=== PATIENT | female | born 1980 | race Caucasian/White ===

== ENCOUNTER 2017-04-12 01:40 | Inpatient (IN) ==
[2017-04-12] MEDS ORDERED: Ipratropium/Albuterol Neb 3 ML IH ONE (02:00)
[2017-04-12] MEDS ORDERED: Ipratropium/Albuterol Neb 3 ML IH SCH (02:00)
[2017-04-12] MEDS ORDERED: Ipratropium/Albuterol Neb 3 ML ONE (02:02)
--- NOTE | 2017-04-12 02:19 | Emergency Department Note ---
Disposition Clinical Impression: Acute dyspnea, Newly diagnosed diabetes, K[place]emia Asthma with exacerbation Qualifiers: Asthma severity: moderate Asthma persistence: persistent Qualified Code(s): J45.41 - Moderate persistent asthma with (acute) exacerbation Disposition: Admitted As Inpatient Condition: Fair Time of Disposition: 06:05 SOB HPI - General Chief Complaint: ED Shortness of Breath/Dyspnea Stated Complaint: JENNIFER Source: patient, EMS Mode of arrival: EMS Limitations: no limitations Nursing Notes Reviewed: Yes Vital Signs Reviewed: Yes - History of Present Illness 36 year old female asthmatic presents to the ED after 2 hour history of facial swelling, shortness of breath, and "hives". Patient cannot specify any new exposures that may have attributed to an allergic reaction. No known food allergies. Not on any new medications. Took low dose benadryl at home with no relief of symptoms. Not O2 dependent, but did try albuterol inhaler with minimal improvement. Is also having mild non-radiating chest pressure. EMS reports patient saturating in low 90s on 12L O2. She was able to ambulate between EMS [facility] and ED bed. Denies any fevers, chills, sweats, heart palpitations, syncope, nausea, vomiting , hemoptysis, known malignancy, recent immobilization/surgery/extensive travel. Has had previous DVT and is tachycardic; Wells PE is 3. PERC positive due to history, O2 desat, and HR. - Related Data Home Medications Medication Instructions Recorded Confirmed Albuterol Neb [Proventil Neb] 2.5 mg IH Q4HR PRN 05/17/15 06/01/15 Ammonium Lactate 1 appl TP BID 05/17/15 06/01/15 Diazepam [Valium] 5 mg PO QAM 05/17/15 06/01/15 Diclofenac Sodium [Voltaren] 1 appl TP PRN PRN 05/17/15 06/01/15 DiphenhydraMINE [Benadryl] 75 mg PO HS 05/17/15 06/01/15 Docusate Sodium [Colace] 200 mg PO BID 05/17/15 06/01/15 Escitalopram [Lexapro] 20 mg PO QPM 05/17/15 06/01/15 Fluticasone Propionate Nasal 1 spray NS DAILY PRN 05/17/15 06/01/15 [Flonase] Gabapentin [Neurontin] 900 mg PO BID 05/17/15 06/01/15 Krill/Om-3/Dha/Epa/Phospho/Ast 1 each PO QPM 05/17/15 06/01/15 [[place]-3 Krill Oil 1,000 mg] Lamotrigine [Lamictal] 100 mg PO QAM 05/17/15 06/01/15 Lamotrigine [Lamictal] 200 mg PO HS 05/17/15 06/01/15 Meloxicam [Mobic] 15 mg PO QAM 05/17/15 06/01/15 Multivitamin [Flintstones] 1 each PO QAM 05/17/15 06/01/15 Omeprazole [PriLOSEC] 20 mg PO QAM 05/17/15 06/01/15 Oxybutynin [Ditropan] 5 mg PO BID 05/17/15 06/01/15 Oxycodone HCl 10 mg PO Q4H PRN 05/17/15 06/01/15 Perphenazine [Trilafon] 4 mg PO QAM 05/17/15 06/01/15 Perphenazine [Trilafon] 24 mg PO HS 05/17/15 06/01/15 Polyethylene Glycol 3350 [MiraLAX] 17 gm PO DAILY PRN 05/17/15 06/01/15 Psyllium Husk [Daily Fiber] 0.52 gm PO QAM 05/17/15 06/01/15 Salmeterol Xinafoate [Serevent 50 mcg IH BID PRN 05/17/15 06/01/15 Diskus] Simethicone [Gas-X] 250 mg PO BID 05/17/15 06/01/15 Benzonatate [Tessalon] 100 mg PO TID PRN 06/01/15 06/01/15 Diazepam [Valium] 20 mg PO HS 06/01/15 06/01/15 Previous Rx's Medication Instructions Recorded PredniSONE 40 mg PO DAILY #7 tablet 06/02/15 levoFLOXacin [Levaquin] 500 mg PO DAILY #5 tablet 06/02/15 Penicillin VK 500 mg PO QID #40 tablet 09/24/15 Dicyclomine [Bentyl] 10 mg PO BID #20 capsule 12/08/15 Allergies Allergy/AdvReac Type Severity Reaction Status Date / Time Oxycodone [From OxyContin] Allergy See Verified 07/07/16 04:22 Comments All systems ED: reviewed and negative except as stated. Review of Systems: As Per HPI Past Medical History - Past Medical History Attestation: Yes The following information was validated with the patient. [facility] Narrative: No known history of diabetes Medical history: Reports: asthma, COPD, DVT, hypertension, syncope, other Surgical history: Reports: other Psychiatric history: Reports: anxiety, bipolar, depression, PTSD, other - Social History Smoking Status: Current every day smoker Smokeless Tobacco Status: No Alcohol use: Reports: occasionally Drug use: Reports: none Physical Exam - General Limitations: no limitations General appearance: alert, in no apparent distress, anxious - Head Head exam: normocephalic - Eye Eye exam: Present: PERRL, EOMI. Absent: scleral icterus, conjunctival injection , nystagmus, miosis, mydriasis - ENT ENT exam: mucous membranes moist - Neck Neck exam: Present: trachea midline - Chest Chest inspection: Present: normal inspection, symmetric chest wall rise. Absent : rash - Respiratory Respiratory exam: Present: respiratory distress, wheezes, accessory muscle use. Absent: stridor - Cardiovascular Cardiovascular exam: Present: other (heart sounds distant and difficult to auscultate) - Abdominal Exam Abdominal exam: Present: soft, Non-Tender - Extremities Exam Extremities exam: Absent: pedal edema - Neurological Exam Neurological exam: Present: alert, oriented X3 - Psychiatric Psychiatric exam: Present: anxious - Skin Skin exam: Present: warm, dry, intact, normal color, rash (Not appreciated our initial evaluation; see reassessment). Absent: cyanosis, diaphoresis, erythema , pallor, mottled Course Course Narrative: patient given multiple duonebs on arrival and dyspnea work up initiated. SpO2 minimally improved with 4L via NC, multiple duonebs, and albuterol treatments. EKG and troponin negative for ST elevation/depression. Marked elevation of glucose on BMP with associated AG, absent abnormal pH on VBG. Initiated 2L NS bolus, PO water restriction, and insulin drip. Telemetry called several times for tachycardic rates in the 200s which were discordant with concurrent pulse checks (120s). Spoke with hospitalist for admission for respiratory distress and non-acidotic ketotic hyperglycemia; ordered CTA to evaluate for PE at hospitalist request. - Reevaluation(s) Reevaluation #1: Appears to be somewhat improved with respect to respiratory effort. Still wheezing. No other subjective changes at this time. On 4L NC O2, currently receiving NS bolus and insulin drip. Time: 04:55 Vital Signs Temperature 98.7 F 04/12/17 01:42 Pulse Rate 114 04/12/17 01:42 Respiratory Rate 20 04/12/17 01:42 Blood Pressure 145/114 04/12/17 01:42 O2 Sat by Pulse Oximetry 92 04/12/17 01:42 Temperature 99.5 F 04/12/17 06:39 Pulse Rate 121 04/12/17 06:39 Respiratory Rate 20 04/12/17 06:39 Blood Pressure 125/98 04/12/17 06:39 O2 Sat by Pulse Oximetry 96 04/12/17 06:39 Oxygen Delivery Oxygen Delivery Nasal Cannula Shortness of Breath/Dyspnea - MDM Narrative Medical decision making narrative: Patient continues to be dyspneic despite multiple breathing treatments and supplementary oxygen up to 4 L by nasal cannula. Saturations have maintained approximately 88-90% values throughout ED course. Patient has consistently been tachycardic throughout ED stay. Furthermore, patient has marked elevation of serum glucose, ketonemia, and elevated anion gap (without acidemia). Patient is on insulin drip and is receiving DKA bolus of NS. Admitting patient for observation and stabilization of respiratory distress and decompensation of previously unknown diabetes. CTA chest ordered at request of hospitalist; scan completed prior to transfer to medical floor with interpretation currently pending. - Lab Data Lab results reviewed: Yes I reviewed the patient's lab results. Lab results narrative: Laboratory Last Values WBC 9.4 K/mcL (4.3-11.1) 04/12/17 02:21 RBC 6.10 M/mcL (3.82-4.97) H 04/12/17 02:21 Hgb 17.6 g/dL (11.5-15.4) H 04/12/17 02:21 Hct 51.4 % (35.3-44.9) H 04/12/17 02:21 MCV 84.3 fL (83.0-100.0) 04/12/17 02:21 MCH 28.9 pg (28.0-33.3) 04/12/17 02:21 MCHC 34.2 g/dL (31.6-35.5) 04/12/17 02:21 RDW 13.4 % (11.5-14.5) 04/12/17 02:21 Plt Count 200 K/mcL (140-400) 04/12/17 02:21 MPV 11.2 fL (9.4-12.4) 04/12/17 02:21 Immature Gran % 0.3 % (0-4) 04/12/17 02:21 Seg Neutrophils % 64.4 % 04/12/17 02:21 Lymphocytes % 27.1 % 04/12/17 02:21 Monocytes % 6.6 % 04/12/17 02:21 Eosinophils % 1.1 % 04/12/17 02:21 Basophils % 0.5 % 04/12/17 02:21 Neutrophils # 6.0 K/mcL (1.6-8.9) 04/12/17 02:21 Lymphocytes # 2.5 K/mcL (0.6-4.6) 04/12/17 02:21 Monocytes # 0.6 K/mcL (0.0-1.3) 04/12/17 02:21 Eosinophils # 0.1 K/mcL (0.0-0.6) 04/12/17 02:21 Basophils # 0.1 K/mcL (0.0-0.2) 04/12/17 02:21 VBG pH 7.38 pH Units (7.32-7.42) 04/12/17 03:48 VBG pCO2 39 mmHg (41-51) L 04/12/17 03:48 VBG pO2 86 mmHg (25-50) H 04/12/17 03:48 VBG HCO3 23 mEq/L (21-27) 04/12/17 03:48 Sodium 126 mEq/L (136-145) L 04/12/17 02:21 Potassium 4.7 mEq/L (3.5-4.5) H 04/12/17 02:21 Chloride 92 mEq/L (98-109) L 04/12/17 02:21 Carbon Dioxide 19 mEq/L (19-29) 04/12/17 02:21 BUN 10 mg/dL (7-20) 04/12/17 02:21 Creatinine 1.06 mg/dL (0.57-1.11) 04/12/17 02:21 Est GFR ( Amer) > 60 (> 60) 04/12/17 02:21 Est GFR (Non-Af Amer) 59 (> 60) L 04/12/17 02:21 BUN/Creatinine Ratio 9 (6-26) 04/12/17 02:21 Glucose 738 mg/dL (70-99) H* 04/12/17 02:21 POC Glucose 599 (58-89) H* 04/12/17 04:37 Calculated Osmolality 297 (280-300) 04/12/17 02:21 Calcium 9.5 mg/dL (8.6-10.8) 04/12/17 02:21 Troponin I 0.01 ng/mL (0-0.03) 04/12/17 02:21 Beta-Hydroxybutyric Acd 0.41 mmol/L (0.02-0.27) H 04/12/17 02:21 Laboratory Last Values WBC 9.4 K/mcL (4.3-11.1) 04/12/17 02:21 RBC 6.10 M/mcL (3.82-4.97) H 04/12/17 02:21 Hgb 17.6 g/dL (11.5-15.4) H 04/12/17 02:21 Hct 51.4 % (35.3-44.9) H 04/12/17 02:21 MCV 84.3 fL (83.0-100.0) 04/12/17 02:21 MCH 28.9 pg (28.0-33.3) 04/12/17 02:21 MCHC 34.2 g/dL (31.6-35.5) 04/12/17 02:21 RDW 13.4 % (11.5-14.5) 04/12/17 02:21 Plt Count 200 K/mcL (140-400) 04/12/17 02:21 MPV 11.2 fL (9.4-12.4) 04/12/17 02:21 Immature Gran % 0.3 % (0-4) 04/12/17 02:21 Seg Neutrophils % 64.4 % 04/12/17 02:21 Lymphocytes % 27.1 % 04/12/17 02:21 Monocytes % 6.6 % 04/12/17 02:21 Eosinophils % 1.1 % 04/12/17 02:21 Basophils % 0.5 % 04/12/17 02:21 Neutrophils # 6.0 K/mcL (1.6-8.9) 04/12/17 02:21 Lymphocytes # 2.5 K/mcL (0.6-4.6) 04/12/17 02:21 Monocytes # 0.6 K/mcL (0.0-1.3) 04/12/17 02:21 Eosinophils # 0.1 K/mcL (0.0-0.6) 04/12/17 02:21 Basophils # 0.1 K/mcL (0.0-0.2) 04/12/17 02:21 VBG pH 7.38 pH Units (7.32-7.42) 04/12/17 03:48 VBG pCO2 39 mmHg (41-51) L 04/12/17 03:48 VBG pO2 86 mmHg (25-50) H 04/12/17 03:48 VBG HCO3 23 mEq/L (21-27) 04/12/17 03:48 Sodium 126 mEq/L (136-145) L 04/12/17 02:21 Potassium 4.7 mEq/L (3.5-4.5) H 04/12/17 02:21 Chloride 92 mEq/L (98-109) L 04/12/17 02:21 Carbon Dioxide 19 mEq/L (19-29) 04/12/17 02:21 BUN 10 mg/dL (7-20) 04/12/17 02:21 Creatinine 1.06 mg/dL (0.57-1.11) 04/12/17 02:21 Est GFR ( Amer) > 60 (> 60) 04/12/17 02:21 Est GFR (Non-Af Amer) 59 (> 60) L 04/12/17 02:21 BUN/Creatinine Ratio 9 (6-26) 04/12/17 02:21 Glucose 738 mg/dL (70-99) H* 04/12/17 02:21 POC Glucose 599 (58-89) H* 04/12/17 04:37 Calculated Osmolality 297 (280-300) 04/12/17 02:21 Calcium 9.5 mg/dL (8.6-10.8) 04/12/17 02:21 Troponin I 0.01 ng/mL (0-0.03) 04/12/17 02:21 Beta-Hydroxybutyric Acd 0.41 mmol/L (0.02-0.27) H 04/12/17 02:21 Urine Color Yellow (Yellow) 04/12/17 04:44 Urine Clarity Clear (Clear) 04/12/17 04:44 Urine pH 6.0 pH Units (5.0-8.0) 04/12/17 04:44 Ur Specific [place] > 1.030 (1.010-1.025) H 04/12/17 04:44 Urine Protein Negative mg/dL (Neg-Trace) 04/12/17 04:44 Urine Glucose (UA) >=1000 mg/dL (Normal) H 04/12/17 04:44 Urine Ketones Negative mg/dL (Negative) 04/12/17 04:44 Urine Blood Trace (Negative) H 04/12/17 04:44 Urine Nitrite Negative (Negative) 04/12/17 04:44 Urine Bilirubin Negative (Negative) 04/12/17 04:44 Urine Urobilinogen Normal mg/dL (Normal) 04/12/17 04:44 Ur Leukocyte Esterase Negative (Negative) 04/12/17 04:44 Result diagrams: 04/12/17 02:21 04/12/17 02:21 Lab Results 04/12/17 04/12/17 04/12/17 Range/Units 02:21 02:21 02:21 WBC 9.4 (4.3-11.1) K/mcL RBC 6.10 H (3.82-4.97) M/mcL Hgb 17.6 H (11.5-15.4) g/dL Hct 51.4 H (35.3-44.9) % MCV 84.3 (83.0-100.0) fL MCH 28.9 (28.0-33.3) pg MCHC 34.2 (31.6-35.5) g/dL RDW 13.4 (11.5-14.5) % Plt Count 200 (140-400) K/mcL MPV 11.2 (9.4-12.4) fL Immature Gran % 0.3 (0-4) % Seg Neutrophils % 64.4 % Lymphocytes % 27.1 % Monocytes % 6.6 % Eosinophils % 1.1 % Basophils % 0.5 % Neutrophils # 6.0 (1.6-8.9) K/mcL Lymphocytes # 2.5 (0.6-4.6) K/mcL Monocytes # 0.6 (0.0-1.3) K/mcL Eosinophils # 0.1 (0.0-0.6) K/mcL Basophils # 0.1 (0.0-0.2) K/mcL VBG pH (7.32-7.42) pH Units VBG pCO2 (41-51) mmHg VBG pO2 (25-50) mmHg VBG HCO3 (21-27) mEq/L Sodium 126 L (136-145) mEq/L Potassium 4.7 H (3.5-4.5) mEq/L Chloride 92 L (98-109) mEq/L Carbon Dioxide 19 (19-29) mEq/L BUN 10 (7-20) mg/dL Creatinine 1.06 (0.57-1.11) mg/dL Est GFR ( Amer) > 60 (> 60) Est GFR (Non-Af Amer) 59 L (> 60) BUN/Creatinine Ratio 9 (6-26) Glucose 738 H* (70-99) mg/dL POC Glucose (58-89) Calculated Osmolality 297 (280-300) Calcium 9.5 (8.6-10.8) mg/dL Troponin I 0.01 (0-0.03) ng/mL Beta-Hydroxybutyric Acd (0.02-0.27) mmol/L Urine Color (Yellow) Urine Clarity (Clear) Urine pH (5.0-8.0) pH Units Ur Specific [place] (1.010-1.025) Urine Protein (Neg-Trace) mg/dL Urine Glucose (UA) (Normal) mg/dL Urine Ketones (Negative) mg/dL Urine Blood (Negative) Urine Nitrite (Negative) Urine Bilirubin (Negative) Urine Urobilinogen (Normal) mg/dL Ur Leukocyte Esterase (Negative) Ur Squamous Epith Cells (None-Few) per lpf Urine Bacteria (None-Few) per hpf Ur Culture Indicated? (NO) 04/12/17 04/12/17 04/12/17 Range/Units 02:21 03:48 04:37 WBC (4.3-11.1) K/mcL RBC (3.82-4.97) M/mcL Hgb (11.5-15.4) g/dL Hct (35.3-44.9) % MCV (83.0-100.0) fL MCH (28.0-33.3) pg MCHC (31.6-35.5) g/dL RDW (11.5-14.5) % Plt Count (140-400) K/mcL MPV (9.4-12.4) fL Immature Gran % (0-4) % Seg Neutrophils % % Lymphocytes % % Monocytes % % Eosinophils % % Basophils % % Neutrophils # (1.6-8.9) K/mcL Lymphocytes # (0.6-4.6) K/mcL Monocytes # (0.0-1.3) K/mcL Eosinophils # (0.0-0.6) K/mcL Basophils # (0.0-0.2) K/mcL VBG pH 7.38 (7.32-7.42) pH Units VBG pCO2 39 L (41-51) mmHg VBG pO2 86 H (25-50) mmHg VBG HCO3 23 (21-27) mEq/L Sodium (136-145) mEq/L Potassium (3.5-4.5) mEq/L Chloride (98-109) mEq/L Carbon Dioxide (19-29) mEq/L BUN (7-20) mg/dL Creatinine (0.57-1.11) mg/dL Est GFR ( Amer) (> 60) Est GFR (Non-Af Amer) (> 60) BUN/Creatinine Ratio (6-26) Glucose (70-99) mg/dL POC Glucose 599 H* (58-89) Calculated Osmolality (280-300) Calcium (8.6-10.8) mg/dL Troponin I (0-0.03) ng/mL Beta-Hydroxybutyric Acd 0.41 H (0.02-0.27) mmol/L Urine Color (Yellow) Urine Clarity (Clear) Urine pH (5.0-8.0) pH Units Ur Specific [place] (1.010-1.025) Urine Protein (Neg-Trace) mg/dL Urine Glucose (UA) (Normal) mg/dL Urine Ketones (Negative) mg/dL Urine Blood (Negative) Urine Nitrite (Negative) Urine Bilirubin (Negative) Urine Urobilinogen (Normal) mg/dL Ur Leukocyte Esterase (Negative) Ur Squamous Epith Cells (None-Few) per lpf Urine Bacteria (None-Few) per hpf Ur Culture Indicated? (NO) 04/12/17 Range/Units 04:44 WBC (4.3-11.1) K/mcL RBC (3.82-4.97) M/mcL Hgb (11.5-15.4) g/dL Hct (35.3-44.9) % MCV (83.0-100.0) fL MCH (28.0-33.3) pg MCHC (31.6-35.5) g/dL RDW (11.5-14.5) % Plt Count (140-400) K/mcL MPV (9.4-12.4) fL Immature Gran % (0-4) % Seg Neutrophils % % Lymphocytes % % Monocytes % % Eosinophils % % Basophils % % Neutrophils # (1.6-8.9) K/mcL Lymphocytes # (0.6-4.6) K/mcL Monocytes # (0.0-1.3) K/mcL Eosinophils # (0.0-0.6) K/mcL Basophils # (0.0-0.2) K/mcL VBG pH (7.32-7.42) pH Units VBG pCO2 (41-51) mmHg VBG pO2 (25-50) mmHg VBG HCO3 (21-27) mEq/L Sodium (136-145) mEq/L Potassium (3.5-4.5) mEq/L Chloride (98-109) mEq/L Carbon Dioxide (19-29) mEq/L BUN (7-20) mg/dL Creatinine (0.57-1.11) mg/dL Est GFR ( Amer) (> 60) Est GFR (Non-Af Amer) (> 60) BUN/Creatinine Ratio (6-26) Glucose (70-99) mg/dL POC Glucose (58-89) Calculated Osmolality (280-300) Calcium (8.6-10.8) mg/dL Troponin I (0-0.03) ng/mL Beta-Hydroxybutyric Acd (0.02-0.27) mmol/L Urine Color Yellow (Yellow) Urine Clarity Clear (Clear) Urine pH 6.0 (5.0-8.0) pH Units Ur Specific [place] > 1.030 H (1.010-1.025) Urine Protein Negative (Neg-Trace) mg/dL Urine Glucose (UA) >=1000 H (Normal) mg/dL Urine Ketones Negative (Negative) mg/dL Urine Blood Trace H (Negative) Urine Nitrite Negative (Negative) Urine Bilirubin Negative (Negative) Urine Urobilinogen Normal (Normal) mg/dL Ur Leukocyte Esterase Negative (Negative) Ur Squamous Epith Cells Few (None-Few) per lpf Urine Bacteria Few (None-Few) per hpf Ur Culture Indicated? NO (NO) - Radiology Data Radiology results reviewed: Yes I reviewed the patient's radiology results. Chest X-Ray 04/12/17 01:55 IMPRESSION: Limited but grossly negative portable chest. D/ / Arjun Stratton MD / Arjun Stratton MD Interpreting Provider: Arjun Stratton MD - EKG Data EKG attestation: Yes I reviewed and interpreted this EKG. EKG results narrative: Rate 111, MD interval 124, QRS duration 86, QTC 379, axis 80, no PT waves, no ST elevation sinus tachycardia Repeat EKG ordered in response to artifactual telemetry abnormalities: 0345am -- rate 128, MD int 150, QRS 84, QTc 374, axis 76 degrees, no significant ST changes from earlier EKG, sinus tachycardia Critical Care Time Critical Care Time: Yes Total Critical Care Time: 50 Attestation: Critical care performed: Time is exclusive of separately billable procedures. Time includes: direct patient care, patient reassessment, coordination of patient care, interpretation of data (laboratory data, radiology data, and respiratory data), review of patient's medical records, medical consultation and documentation of patient care. Procedures included in critical care time: Procedures excluded from critical care time: Attestation Statement - Attestation Attestation: IJosué MD, personally evaluated this patient and discussed their management with the resident physician. I reviewed the resident's note and agree with the documented findings, medical decision making, and plan of care. 36-year-old male presents to the emergency department with a complaint of increased cough for 2 days prior to arrival. This evening about 11 PM she developed increased shortness of breath. No fever. No sputum production. No chest pain. Patient has a history of asthma and COPD. No history of diabetes but was found tonight to have a blood sugar greater than 700. On examination patient is a well-developed obese female in mild respiratory distress. She is alert and oriented 3. There is no cyanosis or diaphoresis. Oxygen saturation in the upper 80s to low 90s on oxygen by nasal cannula. Chest is nontender to palpation. Breath sounds are decreased bilaterally with a few scattered expiratory wheezes. No rales. Heart tachycardic and regular. Abdomen soft and nontender with normal bowel sounds. No pedal edema. Labs reviewed. Blood sugar 738. Positive ketones. PH normal. Chest x-ray negative. CTA of the chest requested by the hospitalist and showed no central pulmonary emboli. Patient was placed on an insulin drip. The hospitalist, Dr. Hunter, was consulted and accepted admission of the patient.
[2017-04-12 02:30] LABS: Basophils # 0.1 K/mcL (0.0-0.2); Basophils % 0.5 %; Eosinophils # 0.1 K/mcL (0.0-0.6); Eosinophils % 1.1 %; Hematocrit 51.4 % (35.3-44.9); Hemoglobin 17.6 g/dL (11.5-15.4); Immature Granulocytes % 0.3 % (0-4); Lymphocytes # 2.5 K/mcL (0.6-4.6); Lymphocytes % 27.1 %; Mean Corpuscular HGB Conc 34.2 g/dL (31.6-35.5); Mean Corpuscular Hemoglobin 28.9 pg (28.0-33.3); Mean Corpuscular Volume 84.3 fL (83.0-100.0); Mean Platelet Volume 11.2 fL (9.4-12.4); Monocytes # 0.6 K/mcL (0.0-1.3); Monocytes % 6.6 %; Platelet Count 200 K/mcL (140-400); Red Cell Distribution Width 13.4 % (11.5-14.5); Segmented Neutrophils % 64.4 %
[2017-04-12] MEDS ORDERED: methylPREDNISolone 125 MG/2 ML VIAL IVP ONE (02:30)
[2017-04-12 02:43] LABS: BUN/Creatinine Ratio 9 (6-26); Blood Urea Nitrogen 10 mg/dL (7-20); Calcium 9.5 mg/dL (8.6-10.8); Carbon Dioxide 19 mEq/L (19-29); Chloride 92 mEq/L (98-109); Osmolality,Calculated 297 (280-300); Potassium 4.7 mEq/L (3.5-4.5); Sodium 126 mEq/L (136-145); eGFR For African Americans > 60 (> 60); eGFR For Non-African Americans 59 (> 60)
[2017-04-12 02:45] LABS: Glucose 738 mg/dL (70-99)
[2017-04-12] MEDS ORDERED: Albuterol 2.5 MG/3 ML NEBULIZER IH ONE (02:46)
[2017-04-12] MEDS ORDERED: Insulin Human Regular 100 UNIT in 0.9 % Sodium Chloride 100 ML IVC SCH (03:00)
[2017-04-12] MEDS ORDERED: 0.9 % Sodium Chloride 1,000 ML IVC SCH (03:00)
[2017-04-12 03:57] LABS: VBG HCO3 23 mEq/L (21-27); VBG PCO2 39 mmHg (41-51); VBG PH 7.38 pH Units (7.32-7.42); VBG PO2 86 mmHg (25-50)
[2017-04-12] MEDS ORDERED: Acetaminophen 325 MG TABLET PO PRN (05:24)
[2017-04-12] MEDS ORDERED: Albuterol 2.5 MG/3 ML NEBULIZER IH PRN ×2 (05:24→09:13)
[2017-04-12] MEDS ORDERED: Ondansetron ODT 4 MG TAB.RAPDIS SL PRN (05:24)
[2017-04-12] MEDS ORDERED: Naloxone 0.4 MG/ML INJ IVP PRN (05:24)
[2017-04-12] MEDS ORDERED: *HR* Dextrose 50 % in Water (Syg) 50 ML SYRINGE IVP PRN (05:24)
[2017-04-12 05:32] LABS: Bilirubin,Urine Negative (Negative); Blood,Urine Trace (Negative); Clarity,Urine Clear (Clear); Color,Urine Yellow (Yellow); Glucose,Urine (UA) >=1000 mg/dL (Normal); Ketones,Urine Negative (Negative); Leukocyte Esterase,Urine Negative (Negative); Nitrite,Urine Negative (Negative); Protein,Urine Negative (Neg-Trace); Specific Gravity,Urine > 1.030 (1.010-1.025); Urobilinogen,Urine Normal (Normal)
--- NOTE | 2017-04-12 05:35 | Internal Med History&Physical ---
<Stef Baker - Last Filed: 04/12/17 05:32> Date of Encounter: 04/12/17 Time of Encounter: 05:32 Assessment and Plan (1) Acute on chronic respiratory failure Current visit: Yes Status: Acute Likely secondary to non-compliance with her CPAP/oxygen from MARILEE/OHS/asthma She was seen by community health counselor as outpatient and PFTs indicated restrictive pattern rather than COPD Will start her on IV steroids due to wheezing heard upon auscultation Support with scheduled breathing treatments, supplemental oxygen and CPAP Given her history of DVT, CTA was obtained; results pending Qualifiers: Qualified Code(s): J96.20 - Acute and chronic respiratory failure, unspecified whether with hypoxia or hypercapnia (2) Hyperglycemia Current visit: Yes Status: Acute Patient presented with blood sugar of 738 and has not had any diagnosis of diabetes previously There is no acidosis present on BMP, but she did have borderline anion gap of 15 and her osmolality was WNL; there are no mental status changes She was started on insulin drip in the ED, which we will continue on the floor; will plan to transition to SQ once sugars drop below 200 Obtain A1c in AM (3) MARILEE (obstructive sleep apnea) Current visit: Yes Status: Chronic Sleep study in October of this year demonstrated severe MARILEE She has been non-compliant as above, but states that her tube is leaking from her CPAP; will consult oncology social work to assist in replacement of device Will start on CPAP while she is here (4) Chest pain Current visit: No Status: Acute Likely musculoskeletal which is secondary to her acute non-productive cough Troponin and CXR were unremarkable Will offer Robitussin to alleviate cough Qualifiers: Qualified Code(s): R07.9 - Chest pain, unspecified (5) Morbid obesity with BMI of 60.0-69.9, adult Current visit: Yes Status: Chronic Her body habitus is certainly contributing to her respiratory status Patient counseled on weight loss (6) Tobacco abuse disorder Current visit: No Status: Chronic Patient currently smokes 2 PPD and I did school counsellor her to quit smoking Will offer her nicotine patches as she is currently having urges (7) History of DVT (deep vein thrombosis) Current visit: Yes Status: Resolved Patient had DVT 3.5 years ago but this was provoked as she recently had back surgeries at that time She had her IVC filter removed after 6 months and was also on Warfarin for 6 months CTA was obtained in the ED, will await results (8) DVT prophylaxis Current visit: Yes Status: Acute Heparin 5000 units BID Internal Medicine - H&P: HPI Chief complaint: shortness of breath Admitted From: Home Plans for Post Hospital Care: Home History of present illness: Ms. Tapia is a 36 year old female who presents with shortness of breath that started last night at 11 PM while at rest. She has history of MARILEE and asthma but is non-compliant with her CPAP machine. She does have 2 L oxygen at night but does not use it every night. She also reports chest pressure that started about the same time and a non-productive cough for 2 days. Patient states her breathing has improved since coming into the ED and given steroids and breathing treatments. Denies fever, chills, nausea, vomiting, diarrhea. Of note , she had a DVT 3.5 years ago after having several back surgeries and had an IVC filter and was on Warfarin for 6 months each. Past Med Surg Social Fam HX - Past Medical History Medical history: asthma, COPD, DVT, hypertension, syncope, other Psychiatric history: anxiety, bipolar, depression, PTSD, other - Past Surgical History Surgical History: other - Social History Smoking Status: Current every day smoker Smokeless Tobacco Status: No Alcohol use: occasionally Drug use: none - Family History Mother Living Status: Still Living Hx Family Endocrine Disorder: Yes (DM) Hx Family Autoimmune Disorders: Yes Maternal Grandmother Living Status: Hx Family Cardiac Disorders: Yes Hx Family Cancer: Yes Hx Family Neurologic Disorders: Yes Internal Medicine - H&P: Meds Albuterol Neb [Proventil Neb] 2.5 mg IH Q4HR PRN 05/17/15 [History] Ammonium Lactate 1 appl TP BID 05/17/15 [History] Diazepam [Valium] 5 mg PO QAM 05/17/15 [History] Diclofenac Sodium [Voltaren] 1 appl TP PRN PRN 05/17/15 [History] DiphenhydraMINE [Benadryl] 75 mg PO HS 05/17/15 [History] Docusate Sodium [Colace] 200 mg PO BID 05/17/15 [History] Escitalopram [Lexapro] 20 mg PO QPM 05/17/15 [History] Fluticasone Propionate Nasal [Flonase] 1 spray NS DAILY PRN 05/17/15 [History] Gabapentin [Neurontin] 900 mg PO BID 05/17/15 [History] Krill/Om-3/Dha/Epa/Phospho/Ast [Avery-3 Krill Oil 1,000 mg] 1 each PO QPM [History] Lamotrigine [Lamictal] 100 mg PO QAM 05/17/15 [History] Lamotrigine [Lamictal] 200 mg PO HS 05/17/15 [History] Meloxicam [Mobic] 15 mg PO QAM 05/17/15 [History] Multivitamin [Flintstones] 1 each PO QAM 05/17/15 [History] Omeprazole [PriLOSEC] 20 mg PO QAM 05/17/15 [History] Oxybutynin [Ditropan] 5 mg PO BID 05/17/15 [History] Oxycodone HCl 10 mg PO Q4H PRN 05/17/15 [History] Perphenazine [Trilafon] 4 mg PO QAM 05/17/15 [History] Perphenazine [Trilafon] 24 mg PO HS 05/17/15 [History] Polyethylene Glycol 3350 [MiraLAX] 17 gm PO DAILY PRN 05/17/15 [History] Psyllium Husk [Daily Fiber] 0.52 gm PO QAM 05/17/15 [History] Salmeterol Xinafoate [Serevent Diskus] 50 mcg IH BID PRN 05/17/15 [History] Simethicone [Gas-X] 250 mg PO BID 05/17/15 [History] Benzonatate [Tessalon] 100 mg PO TID PRN 06/01/15 [History] Diazepam [Valium] 20 mg PO HS 06/01/15 [History] PredniSONE 40 mg PO DAILY #7 tablet 06/02/15 [Rx] levoFLOXacin [Levaquin] 500 mg PO DAILY #5 tablet 06/02/15 [Rx] Penicillin VK 500 mg PO QID #40 tablet 09/24/15 [Rx] Dicyclomine [Bentyl] 10 mg PO BID #20 capsule 12/08/15 [Rx] 3 Allergy/AdvReac Type Severity Reaction Status Date / Time Oxycodone [From OxyContin] Allergy See Verified 07/07/16 04:22 Comments All Systems PM: A 10-system review of systems was performed and is negative for pertinent findings except as documented above in the HPI. - Constitutional Constitutional: no chills, no fever(s), no night sweats - EENT Eyes: no change in vision, no discharge, no pain, no photophobia Ears: no ear discharge, no ear pain, no tinnitus Nose, mouth and throat: no dysphagia, no nasal discharge, no neck pain, no sore throat - Cardiovascular Cardiovascular ROS IM: chest pain, dyspnea, dyspnea on exertion, no diaphoresis , no lightheadedness, no palpitations, no syncope - Respiratory Respiratory: cough, dyspnea, wheezing, pain with cough, no excessive phlegm production - Gastrointestinal Gastrointestinal: no abdominal pain, no diarrhea, no hematemesis, no hematochezia, no melena, no nausea, no vomiting - Genitourinary Genitourinary: no change in urinary stream, no dysuria, no flank pain, no hematuria - Musculoskeletal Musculoskeletal ROS IM: no numbness, no tingling - Integumentary Integumentary IM: no rash, no unusual bruising - Neurological Neurological ROS: no confusion, no convulsions, no focal weakness, no numbness, no tingling, no tremor(s) - Hematologic/Lymphatic Hematologic/Lymphatic: no easy bruising - Constitutional Vitals: Temp Pulse Resp BP Pulse Ox 98.7 F 111 24 154/118 88 04/12/17 01:42 04/12/17 02:00 04/12/17 03:04 04/12/17 02:00 04/12/17 03:04 General appearance: Present: cooperative, morbidly obese, pleasant, no acute distress, answers questions appropriately - Head Head exam: Present: atraumatic, normocephalic - Eye Eye exam: Present: PERRL, conjuntiva pink, sclera anicteric - Neck Neck exam general surgery: Present: supple, trachea midline. Absent: lymphadenopathy - Respiratory Respiratory exam: Present: respiratory distress (mild), wheezes. Absent: accessory muscle use, rales, rhonchi - Cardiovascular Cardiovascular exam: Present: +S1, +S2, tachycardia. Absent: diastolic murmur, gallop, rubs, systolic murmur - GI/Abdominal GI/Abdominal exam: Present: normal bowel sounds, soft, no peritoneal signs. Absent: distended, tenderness - Extremities Exam Extremities exam: Present: warm, radial pulses palpable and symmetrical. Absent : calf tenderness, cyanotic, pedal edema - Neurological Exam Neurological exam: Present: alert, no focal deficits. Absent: facial droop, speech deficit - Skin Skin exam: Present: dry, intact Internal Med - H&P Results - Labs CBC & Chem 7: 04/12/17 02:21 04/12/17 02:21 Labs: Short CBC 04/12/17 Range/Units 02:21 WBC 9.4 (4.3-11.1) K/mcL Hgb 17.6 H (11.5-15.4) g/dL Hct 51.4 H (35.3-44.9) % Plt Count 200 (140-400) K/mcL Neutrophils # 6.0 (1.6-8.9) K/mcL BMP 04/12/17 02:21 Sodium 126 L Potassium 4.7 H Chloride 92 L Carbon Dioxide 19 BUN 10 Creatinine 1.06 Glucose 738 H* Calcium 9.5 Cardiac Enzymes 04/12/17 Range/Units 02:21 Troponin I 0.01 (0-0.03) ng/mL - ABG Interpretation ABG results: 04/12/17 03:48 VBG pH 7.38 VBG pCO2 39 L VBG pO2 86 H VBG HCO3 23 - Impressions ITS Impressions Chest X-Ray 04/12/17 01:55 IMPRESSION: Limited but grossly negative portable chest. D/ / Arjun Stratton MD / Arjun Stratton MD Interpreting Provider: Arjun Stratton MD <Rubén Hammer - Last Filed: 04/12/17 06:50> Date of Encounter: 04/12/17 Internal Medicine - H&P: HPI History of present illness: Ms. Tapia is a 36 year old female All Systems PM: A 10-system review of systems was performed and is negative for pertinent findings except as documented above in the HPI. - Constitutional Vitals: Temp Pulse Resp BP Pulse Ox 98.7 F 128 24 132/71 92 04/12/17 01:42 04/12/17 05:00 04/12/17 03:04 04/12/17 05:00 04/12/17 05:00 Internal Med - H&P Results - Labs CBC & Chem 7: 04/12/17 02:21 04/12/17 02:21 - Attending Attestation I examined this patient and my medical decision-making was reviewed with the COOK MANAGER. I agree with the documented findings, disposition and treatment plan as described except to the extent set forth below. Patient is a 36-year-old female with past medical history of COPD, hypertension , obstructive sleep apnea, history of DVT, anxiety and depression. She presents to the ED with complaints of shortness of breath and cough. Patient states her symptoms have been going on for a few days but got worse last night at around 11 PM. She states she has persistent dry cough and shortness of breath is worse. Symptoms are worse with exertion. No alleviating factors. She has not been using her home oxygen and has not been using her home CPAP. She continues to smoke almost 1 pack cigarettes daily. Initial workup in the ED is significant for elevated blood glucose. She denies history of diabetes. This is a new diagnosis for her. CTA of the chest is negative for PE and lungs are clear. Patient is being admitted for respiratory failure secondary to COPD exacerbation and for uncontrolled hyperglycemia. She is currently on IV insulin and IV fluids. She will need BiPAP, DuoNeb breathing treatment, IV Solu -Medrol and IV antibiotics. Patient and her family have been explained about her condition and plan Pauline detail. They understood and agreed. No unanswered questions. Patient has been counseled extensively about smoking cessation. She understood and agreed. CODE STATUS full code.
[2017-04-12 06:04] LABS: Bacteria,Urine Few per hpf (None-Few); Squamous Epithelial Cell,Urine Few per lpf (None-Few)
[2017-04-12] MEDS: *HR* Morphine 2 MG/ML SYRINGE IVP PRN ×3 (08:16→21:10)
[2017-04-12] MEDS: *HR* Heparin 5,000 UNIT/ML VIAL SQ SCH ×2 (08:19→18:05)
[2017-04-12] MEDS: methylPREDNISolone 125 MG/2 ML VIAL IVP SCH ×3 (08:19→23:50)
[2017-04-12] MEDS: Ipratropium/Albuterol Neb 3 ML IH SCH ×5 (08:34→23:22)
[2017-04-12] MEDS: Budesonide/Formoterol 160/4.5 MDI IH SCH ×2 (08:34→20:29)
[2017-04-12 08:35] LABS: BUN/Creatinine Ratio 9 (6-26); Blood Urea Nitrogen 9 mg/dL (7-20); Calcium 9.7 mg/dL (8.6-10.8); Carbon Dioxide 19 mEq/L (19-29); Chloride 96 mEq/L (98-109); Glucose 440 mg/dL (70-99); Osmolality,Calculated 286 (280-300); Potassium 4.2 mEq/L (3.5-4.5); Sodium 129 mEq/L (136-145); eGFR For African Americans > 60 (> 60); eGFR For Non-African Americans > 60 (> 60)
[2017-04-12] MEDS ORDERED: Nicotine 14 MG PATCH.TD24 TD SCH (09:00)
[2017-04-12] MEDS: Insulin Human Regular 100 UNIT in 0.9 % Sodium Chloride 100 ML IVC SCH ×3 (09:05→12:53)
[2017-04-12] MEDS ORDERED: (Diclofenac Sodium [Voltaren] 1 APPL) TP PRN (09:13)
[2017-04-12] MEDS ORDERED: Fluticasone Propionate Nasal 50 MCG/SPRAY BOTTLE NS PRN (09:13)
[2017-04-12] MEDS: Gabapentin 400 MG CAPSULE PO SCH ×3 (10:04→20:56)
[2017-04-12 11:02] LABS: Hemoglobin A1C 10.9 %
[2017-04-12] MEDS: Insulin DETEMIR 100 UNIT/ML X5UNITS SQ SCH ×2 (11:26→20:58)
[2017-04-12] MEDS ORDERED: Dextrose Gel 15 GM PO PRN ×2 (11:35)
[2017-04-12] MEDS ORDERED: D5% in Water 1,000 ML IVC PRN (11:35)
--- NOTE | 2017-04-12 12:43 | Electrocardiograph Report ---
[address] [address] Test Date: 2017-04-12 Pat Name: Luigi Tapia Department: 103 Room: 2N08 Gender: F Research Project Manager: PABLO : 1980 Requested By: Orestes Garcia Order Number: [id number] Reading MD: Li Lopez Measurements Intervals [place] Rate: 111 P: 56 DC: 124 QRS: 80 QRSD: 86 T: 43 QT: 313 QTc: 379 Interpretive Statements SINUS TACHYCARDIA POSSIBLE LEFT ATRIAL ENLARGEMENT [-0.1mV P WAVE IN V1/V2] ABNORMAL RHYTHM ECG Electronically Signed On 04-12-2017 12:42:01 EDT by Li Lopez
[2017-04-12 13:33] LABS: BUN/Creatinine Ratio 9 (6-26); Blood Urea Nitrogen 8 mg/dL (7-20); Calcium 9.9 mg/dL (8.6-10.8); Carbon Dioxide 15 mEq/L (19-29); Chloride 99 mEq/L (98-109); Glucose 328 mg/dL (70-99); Osmolality,Calculated 289 (280-300); Sodium 134 mEq/L (136-145); eGFR For African Americans > 60 (> 60); eGFR For Non-African Americans > 60 (> 60)
[2017-04-12 13:34] LABS: Potassium 4.2 mEq/L (3.5-4.5)
[2017-04-12] MEDS: Nicotine 21 MG PATCH.TD24 TD SCH (13:38)
[2017-04-12] MEDS: Levofloxacin 500 MG/100 ML 500 MG/100 ML BAG IVPB SCH (13:39)
[2017-04-12] MEDS ORDERED: Gabapentin 400 MG CAPSULE PO SCH (15:00)
[2017-04-12 16:25] LABS: BUN/Creatinine Ratio 9 (6-26); Blood Urea Nitrogen 8 mg/dL (7-20); Calcium 9.8 mg/dL (8.6-10.8); Carbon Dioxide 20 mEq/L (19-29); Chloride 99 mEq/L (98-109); Glucose 377 mg/dL (70-99); Osmolality,Calculated 282 (280-300); Potassium 5.1 mEq/L (3.5-4.5); Sodium 129 mEq/L (136-145); eGFR For African Americans > 60 (> 60); eGFR For Non-African Americans > 60 (> 60)
[2017-04-12] MEDS ORDERED: Insulin LISPRO 300 UNITS/3 ML VIAL SQ SCH ×2 (16:30→21:00)
[2017-04-12] MEDS: Simethicone 80 MG TAB.CHEW PO SCH (20:58)
[2017-04-13] MEDS: Ipratropium/Albuterol Neb 3 ML IH SCH ×6 (04:07→23:05)
[2017-04-13 04:10] LABS: Basophils % 0.1 %; Hematocrit 52.5 % (35.3-44.9); Hemoglobin 17.1 g/dL (11.5-15.4); Immature Granulocytes % 0.5 % (0-4); Lymphocytes # 0.8 K/mcL (0.6-4.6); Lymphocytes % 5.6 %; Mean Corpuscular HGB Conc 32.6 g/dL (31.6-35.5); Mean Corpuscular Volume 86.1 fL (83.0-100.0); Mean Platelet Volume 11.5 fL (9.4-12.4); Monocytes # 0.3 K/mcL (0.0-1.3); Neutrophils # 12.6 K/mcL (1.6-8.9); Platelet Count 203 K/mcL (140-400); Red Cell Distribution Width 14.5 % (11.5-14.5); Segmented Neutrophils % 91.8 %
[2017-04-13 04:23] LABS: BUN/Creatinine Ratio 12 (6-26); Blood Urea Nitrogen 11 mg/dL (7-20); Calcium 9.9 mg/dL (8.6-10.8); Carbon Dioxide 23 mEq/L (19-29); Chloride 94 mEq/L (98-109); Osmolality,Calculated 290 (280-300); Potassium 5.4 mEq/L (3.5-4.5); Sodium 129 mEq/L (136-145); eGFR For African Americans > 60 (> 60); eGFR For Non-African Americans > 60 (> 60)
[2017-04-13 04:39] LABS: Glucose 502 mg/dL (70-99)
[2017-04-13] MEDS: *HR* Heparin 5,000 UNIT/ML VIAL SQ SCH ×2 (06:07→18:03)
[2017-04-13] MEDS: Insulin LISPRO 300 UNITS/3 ML VIAL SQ SCH ×4 (06:08→21:59)
[2017-04-13] MEDS: Levofloxacin 500 MG/100 ML 500 MG/100 ML BAG IVPB SCH (06:08)
[2017-04-13] MEDS: Budesonide/Formoterol 160/4.5 MDI IH SCH ×2 (07:37→19:36)
[2017-04-13] MEDS: methylPREDNISolone 125 MG/2 ML VIAL IVP SCH (08:18)
[2017-04-13] MEDS: Cyanocobalamin (B-12) 1,000 MCG TABLET PO SCH (08:19)
[2017-04-13] MEDS: Simethicone 80 MG TAB.CHEW PO SCH ×2 (08:19→21:57)
[2017-04-13] MEDS: Multivit/Ca/Min/Fe/FA 1 TAB TABLET PO SCH (08:19)
[2017-04-13] MEDS: Magnesium Oxide 400 MG TABLET PO SCH (08:19)
[2017-04-13] MEDS: Loratadine 10 MG TABLET PO SCH (08:20)
[2017-04-13] MEDS: Gabapentin 400 MG CAPSULE PO SCH ×3 (08:20→21:57)
[2017-04-13] MEDS: Nicotine 21 MG PATCH.TD24 TD SCH (08:21)
[2017-04-13] MEDS: *HR* Morphine 2 MG/ML SYRINGE IVP PRN ×4 (08:34→22:47)
[2017-04-13] MEDS ORDERED: Insulin DETEMIR 100 UNIT/ML X5UNITS SQ SCH ×2 (09:00→21:00)
[2017-04-13] MEDS ORDERED: Fluticasone Propionate Nasal 50 MCG/SPRAY BOTTLE NS PRN (13:00)
--- NOTE | 2017-04-13 19:24 | Internal Med Progress Note ---
Date of Encounter: 04/13/17 Time of Encounter: 12:00 - Assessment and plan (1) Acute on chronic respiratory failure Current Visit: Yes Status: Acute Assessment and plan: -Secondary to COPD exacerbation. -Continue O2 supplementation to wean down to baseline. Qualifiers: Respiratory failure complication: hypoxia and hypercapnia Qualified Code(s) : J96.21 - Acute and chronic respiratory failure with hypoxia; J96.22 - Acute and chronic respiratory failure with hypercapnia; J96.22 - Acute and chronic respiratory failure with hypercapnia; J96.22 - Acute and chronic respiratory failure with hypercapnia (2) COPD exacerbation Current Visit: No Status: Acute Assessment and plan: -Continue scheduled DuoNeb with IV Solu-Medrol. (3) Tobacco abuse disorder Current Visit: No Status: Chronic Assessment and plan: -Discussed with patient about smoking cessation (4) MARILEE (obstructive sleep apnea) Current Visit: Yes Status: Chronic Assessment and plan: -CPAP daily at bedtime (5) Newly diagnosed diabetes Current Visit: Yes Status: Acute Assessment and plan: -Continue insulin and monitor blood glucose levels (6) Morbid obesity with BMI of 50.0-59.9, adult Current Visit: No Status: Chronic Assessment and plan: -Lifestyle modification (7) DVT prophylaxis Current Visit: Yes Status: Acute Assessment and plan: Subcutaneous heparin - Subjective Interval history: Patient reports that respiratory status has improved - Constitutional Vitals: Temp Pulse Resp BP Pulse Ox 98.8 F 99 18 115/70 95 04/13/17 16:06 04/13/17 16:06 04/13/17 16:06 04/13/17 16:06 04/13/17 16:09 General appearance: Present: cooperative, morbidly obese, pleasant, no acute distress, answers questions appropriately - Respiratory Respiratory exam: Present: wheezes (Expiratory wheezes). Absent: accessory muscle use, respiratory distress - Cardiovascular Cardiovascular exam: Present: RRR, +S1, +S2. Absent: diastolic murmur, gallop, rubs, systolic murmur Internal Medicine: Result - Labs CBC & Chem 7: 04/13/17 03:58 04/13/17 03:58 Labs: Short CBC 04/13/17 Range/Units 03:58 WBC 13.7 H (4.3-11.1) K/mcL Hgb 17.1 H (11.5-15.4) g/dL Hct 52.5 H (35.3-44.9) % Plt Count 203 (140-400) K/mcL Neutrophils # 12.6 H (1.6-8.9) K/mcL BMP 04/13/17 03:58 Sodium 129 L Potassium 5.4 H Chloride 94 L Carbon Dioxide 23 BUN 11 Creatinine 0.95 Glucose 502 H* Calcium 9.9 Consult Discharge Plan - Plan Referrals: Tin Tan MD [Primary Care Provider] -
[2017-04-14] MEDS: Insulin LISPRO 300 UNITS/3 ML VIAL SQ SCH ×9 (00:32→20:47)
[2017-04-14] MEDS: *HR* Morphine 2 MG/ML SYRINGE IVP PRN ×4 (03:07→18:37)
[2017-04-14] MEDS: Ipratropium/Albuterol Neb 3 ML IH SCH ×6 (03:37→23:27)
[2017-04-14] MEDS: *HR* Heparin 5,000 UNIT/ML VIAL SQ SCH ×2 (05:45→16:34)
[2017-04-14] MEDS: Levofloxacin 500 MG/100 ML 500 MG/100 ML BAG IVPB SCH (05:45)
[2017-04-14] MEDS: Budesonide/Formoterol 160/4.5 MDI IH SCH ×2 (07:47→20:22)
[2017-04-14] MEDS: Gabapentin 400 MG CAPSULE PO SCH ×3 (08:51→21:49)
[2017-04-14] MEDS: Cyanocobalamin (B-12) 1,000 MCG TABLET PO SCH (08:51)
[2017-04-14] MEDS: Loratadine 10 MG TABLET PO SCH (08:54)
[2017-04-14] MEDS: Nicotine 21 MG PATCH.TD24 TD SCH (08:54)
[2017-04-14] MEDS: Multivit/Ca/Min/Fe/FA 1 TAB TABLET PO SCH (08:54)
[2017-04-14] MEDS: Magnesium Oxide 400 MG TABLET PO SCH (08:54)
[2017-04-14] MEDS ORDERED: methylPREDNISolone 125 MG/2 ML VIAL IVP SCH (09:00)
[2017-04-14] MEDS: Simethicone 80 MG TAB.CHEW PO SCH ×2 (09:00→21:48)
--- NOTE | 2017-04-14 09:07 | Internal Med Progress Note ---
Date of Encounter: 04/14/17 Time of Encounter: 09:05 - Assessment and plan (1) Tobacco abuse disorder Current Visit: Yes Status: Chronic Assessment and plan: Encourage cessation, on NRT (2) Chest pain Current Visit: Yes Status: Resolved Assessment and plan: Likely musculoskeletal which is secondary to her acute non-productive cough Troponin, CTA and CXR were unremarkable Qualifiers: Chest pain type: unspecified Qualified Code(s): R07.9 - Chest pain, unspecified (3) COPD exacerbation Current Visit: Yes Status: Acute Assessment and plan: -Continue scheduled DuoNeb Change levaquin and steroids to oral (4) Physical deconditioning Current Visit: Yes Status: Chronic Assessment and plan: Patient is wheelchair-bound due to morbid obesity status. She does not desire physical therapy and plans to return home to family care. (5) Acute on chronic respiratory failure Current Visit: Yes Status: Acute Assessment and plan: -Secondary to COPD exacerbation. -Continue O2 supplementation to wean down to baseline. Qualifiers: Respiratory failure complication: hypoxia and hypercapnia Qualified Code(s) : J96.21 - Acute and chronic respiratory failure with hypoxia; J96.22 - Acute and chronic respiratory failure with hypercapnia; J96.22 - Acute and chronic respiratory failure with hypercapnia; J96.22 - Acute and chronic respiratory failure with hypercapnia (6) MARILEE (obstructive sleep apnea) Current Visit: Yes Status: Chronic Assessment and plan: -CPAP daily at bedtime -The patient has a nonfunctioning CPAP machine at home. She is encouraged to call the company prior to discharge. (7) Morbid obesity with BMI of 60.0-69.9, adult Current Visit: Yes Status: Chronic Assessment and plan: Lifestyle modification. (8) History of DVT (deep vein thrombosis) Current Visit: Yes Status: Resolved Assessment and plan: Patient had DVT 3.5 years ago but this was provoked as she recently had back surgeries at that time She had her IVC filter removed after 6 months and was also on Warfarin for 6 months CTA was obtained in the ED, no evidence of pulmonary embolism. (9) Newly diagnosed diabetes Current Visit: Yes Status: Acute Assessment and plan: A1c 10. Patient continues to have uncontrolled fingersticks. Increase Levemir to 40 twice a day, add prandial insulin, continue supplemental scale. Continue to monitor fingersticks. radiator tester to see Will need all supplies at time of discharge - Subjective Interval history: Patient seen and examined at bedside. Initial encounter. 36-year-old female with morbid obesity, obstructive sleep apnea on CPAP, chronic hypoxic and hypercapnic respiratory failure, COPD, hypertension, and diabetes mellitus. She is admitted and being managed for acute on chronic hypoxic and hypercapnic respiratory failure, and uncontrolled diabetes mellitus with hyperglycemia. She continues to have uncontrolled blood sugars, respiratory symptoms are improving. She denies new complaints, she confirms availability of CPAP at home states this is nonfunctioning. She also states she is wheelchair-bound and does not really ambulate. She continues to smoke. - Constitutional Vitals: Temp Pulse Resp BP Pulse Ox 98.9 F 98 24 144/77 100 04/14/17 07:00 04/14/17 07:00 04/14/17 07:49 04/14/17 07:00 04/14/17 07:49 General appearance: Present: cooperative, morbidly obese, pleasant, no acute distress, answers questions appropriately - Head Head exam: Present: atraumatic, normocephalic - Eye Eye exam: Present: PERRL, conjuntiva pink, sclera anicteric Pupils: Present: PERRL - Neck Neck exam general surgery: Present: supple, trachea midline. Absent: lymphadenopathy - Respiratory Additional comments: Diffuse rhonchi, transmitted breath sounds and wheezing. - Cardiovascular Cardiovascular exam: Present: RRR, +S1, +S2. Absent: diastolic murmur, gallop, rubs, systolic murmur - GI/Abdominal GI/Abdominal exam: Present: normal bowel sounds, soft, no peritoneal signs. Absent: distended, tenderness - Extremities Exam Extremities exam: Present: warm, radial pulses palpable and symmetrical. Absent : calf tenderness, cyanotic, pedal edema - Neurological Exam Neurological exam: Present: alert, CN II-XII intact, oriented X3, no focal deficits. Absent: pronater drift, facial droop, speech deficit - Skin Skin exam: Present: dry, intact Internal Medicine: Result - Labs CBC & Chem 7: 04/14/17 08:54 04/14/17 11:12 Consult Discharge Plan - Plan Referrals: Tin Tan MD [Primary Care Provider] - 04/21/17 2:30 pm ()
[2017-04-14] MEDS: Insulin DETEMIR 100 UNIT/ML X5UNITS SQ SCH ×2 (09:10→20:47)
[2017-04-14] MEDS ORDERED: predniSONE 20 MG TABLET PO SCH (09:30)
[2017-04-14] MEDS ORDERED: PrednisoLONE Oral Soln 15 MG/5 ML UDC PO SCH (09:30)
[2017-04-14 09:32] LABS: Basophils % 0.2 %; Hematocrit 49.7 % (35.3-44.9); Hemoglobin 16.5 g/dL (11.5-15.4); Immature Granulocytes % 0.3 % (0-4); Immature Platelets 10.3 % (1.1-6.1); Lymphocytes # 2.2 K/mcL (0.6-4.6); Lymphocytes % 20.2 %; Mean Corpuscular HGB Conc 33.2 g/dL (31.6-35.5); Mean Corpuscular Hemoglobin 28.4 pg (28.0-33.3); Mean Corpuscular Volume 85.5 fL (83.0-100.0); Mean Platelet Volume 11.9 fL (9.4-12.4); Monocytes # 0.9 K/mcL (0.0-1.3); Neutrophils # 7.8 K/mcL (1.6-8.9); Platelet Count 199 K/mcL (140-400); Red Blood Count 5.81 M/mcL (3.82-4.97); Red Cell Distribution Width 14.2 % (11.5-14.5); Segmented Neutrophils % 71.3 %
[2017-04-14] MEDS ORDERED: FLUARIX QUAD 2017-18 36MOS UP/PF 0.5 ML SYRINGE IM ONE (11:19)
[2017-04-14 12:23] LABS: BUN/Creatinine Ratio 16 (6-26); Blood Urea Nitrogen 18 mg/dL (7-20); Calcium 9.3 mg/dL (8.6-10.8); Carbon Dioxide 23 mEq/L (19-29); Chloride 92 mEq/L (98-109); Glucose 401 mg/dL (70-99); Osmolality,Calculated 289 (280-300); eGFR For African Americans > 60 (> 60); eGFR For Non-African Americans 56 (> 60)
[2017-04-14 12:49] LABS: Potassium 4.1 mEq/L (3.5-4.5); Sodium 130 mEq/L (136-145)
--- NOTE | 2017-04-14 15:17 | Electrocardiograph Report ---
[place] [address] Test Date: 2017-04-12 Pat Name: Luigi Tapia Department: 103 Room: 08 Gender: F Apparel Manager: : 1980 Requested By: Duane Daley Order Number: [id number] Reading MD: Li Lopez Measurements Intervals [place] Rate: 128 P: 60 [place]: 150 QRS: 76 QRSD: 84 T: 21 QT: 298 QTc: 374 Interpretive Statements SINUS TACHYCARDIA ABNORMAL RHYTHM ECG Electronically Signed On 04-14-2017 15:16:10 EDT by Li Lopez
[2017-04-15] MEDS: Insulin LISPRO 300 UNITS/3 ML VIAL SQ SCH ×4 (00:36→08:20)
[2017-04-15] MEDS: *HR* Morphine 2 MG/ML SYRINGE IVP PRN ×2 (00:47→06:32)
[2017-04-15] MEDS: Ipratropium/Albuterol Neb 3 ML IH SCH ×2 (04:06→07:43)
[2017-04-15 05:43] LABS: Basophils % 0.3 %; Eosinophils % 0.1 %; Hematocrit 46.7 % (35.3-44.9); Hemoglobin 15.5 g/dL (11.5-15.4); Immature Granulocytes % 0.3 % (0-4); Lymphocytes # 1.9 K/mcL (0.6-4.6); Lymphocytes % 26.8 %; Mean Corpuscular HGB Conc 33.2 g/dL (31.6-35.5); Mean Corpuscular Hemoglobin 28.4 pg (28.0-33.3); Mean Corpuscular Volume 85.5 fL (83.0-100.0); Mean Platelet Volume 11.7 fL (9.4-12.4); Monocytes # 0.7 K/mcL (0.0-1.3); Monocytes % 9.7 %; Neutrophils # 4.3 K/mcL (1.6-8.9); Platelet Count 183 K/mcL (140-400); Red Blood Count 5.46 M/mcL (3.82-4.97); Red Cell Distribution Width 13.9 % (11.5-14.5); Segmented Neutrophils % 62.8 %
[2017-04-15 06:05] LABS: BUN/Creatinine Ratio 19 (6-26); Blood Urea Nitrogen 15 mg/dL (7-20); Calcium 9.2 mg/dL (8.6-10.8); Carbon Dioxide 25 mEq/L (19-29); Chloride 95 mEq/L (98-109); Glucose 302 mg/dL (70-99); Osmolality,Calculated 286 (280-300); Sodium 132 mEq/L (136-145); eGFR For African Americans > 60 (> 60); eGFR For Non-African Americans > 60 (> 60)
[2017-04-15 06:17] LABS: Potassium 4.2 mEq/L (3.5-4.5)
[2017-04-15] MEDS: *HR* Heparin 5,000 UNIT/ML VIAL SQ SCH (06:32)
[2017-04-15] MEDS: Budesonide/Formoterol 160/4.5 MDI IH SCH (07:55)
[2017-04-15 08:00] VITALS: BP 157/77
[2017-04-15] MEDS: Simethicone 80 MG TAB.CHEW PO SCH (08:20)
[2017-04-15] MEDS: Multivit/Ca/Min/Fe/FA 1 TAB TABLET PO SCH (08:21)
[2017-04-15] MEDS: Cyanocobalamin (B-12) 1,000 MCG TABLET PO SCH (08:21)
[2017-04-15] MEDS: Gabapentin 400 MG CAPSULE PO SCH (08:21)
[2017-04-15] MEDS: Loratadine 10 MG TABLET PO SCH (08:21)
[2017-04-15] MEDS: Magnesium Oxide 400 MG TABLET PO SCH (08:22)
[2017-04-15] MEDS: Nicotine 21 MG PATCH.TD24 TD SCH (08:23)
--- NOTE | 2017-04-15 08:29 | Discharge Summary ---
Date of Encounter: 04/15/17 Time of Encounter: 08:28 - Discharge Diagnosis (1) Tobacco abuse disorder Priority: Secondary Status: Chronic Comments: Counselled on cessation of tobacco ause NRT provided (2) Chest pain Priority: Primary Status: Resolved Comments: Likely musculoskeletal which is secondary to her acute non-productive cough Troponin, CTA and CXR were unremarkable Qualifiers: Chest pain type: unspecified Qualified Code(s): R07.9 - Chest pain, unspecified (3) COPD exacerbation Priority: Primary Status: Acute Comments: Improved Discharged home on prednsione, duonebs, MDIS, Levaquin (4) Physical deconditioning Priority: Secondary Status: Chronic (5) Acute on chronic respiratory failure Priority: Primary Status: Resolved Qualifiers: Respiratory failure complication: hypoxia and hypercapnia Qualified Code(s) : J96.21 - Acute and chronic respiratory failure with hypoxia; J96.22 - Acute and chronic respiratory failure with hypercapnia; J96.22 - Acute and chronic respiratory failure with hypercapnia; J96.22 - Acute and chronic respiratory failure with hypercapnia (6) MARILEE (obstructive sleep apnea) Priority: Secondary Status: Chronic Comments: CPAP daily at bedtime The patient has a nonfunctioning CPAP machine at home. She is encouraged follow up with PCP, water quality manager recommends to call PCP At discharge. (7) Morbid obesity with BMI of 60.0-69.9, adult Priority: Secondary Status: Chronic Comments: Lifestyle modification. (8) History of DVT (deep vein thrombosis) Priority: Primary Status: Resolved Comments: Patient had DVT 3.5 years ago but this was provoked as she recently had back surgeries at that time She had her IVC filter removed after 6 months and was also on Warfarin for 6 months CTA was obtained in the ED, no evidence of pulmonary embolism. (9) Newly diagnosed diabetes Priority: Primary Status: Acute - Discharge Medications Prescriptions: Blood Sugar Diagnostic [Glucose Test Strip] 1 each QID #120 strip Blood-Glucose Meter [Blood Glucose Monitoring] 1 each QID #1 kit Dextrose/Maltodextrin [Glucose Powder Packets] 1 each PO DAILY PRN #30 powd.pack PRN Reason: Hypoglycemia GuaiFENesin ER [Mucinex] 600 mg PO BID PRN #1 bottle PRN Reason: Congestion Insulin DETEMIR [Levemir] 50 unit SQ BID #2 vial Insulin LISPRO [HumaLOG] 14 units SQ TIDWM #2 vial Lancets 1 each QID #120 each levoFLOXacin [Levaquin] 500 mg PO DAILY #3 tablet Lisinopril [Zestril] 10 mg PO DAILY #30 tablet Nicotine Patch [Nicoderm] 21 mg TD DAILY #20 patch.td24 predniSONE [PredniSONE] 40 mg PO DAILY #8 tablet Syringe-Needle,Insulin,0.5 ml [Insulin Syringe] 1 each QID #120 disp.syrin Home Medications: Albuterol Neb [Proventil Neb] 2.5 mg IH Q4HR PRN 05/17/15 [History] Docusate Sodium [Colace] 200 mg PO BID 05/17/15 [History] Escitalopram [Lexapro] 20 mg PO HS 05/17/15 [History] Gabapentin [Neurontin] 1,200 mg PO TID 05/17/15 [History] Multivitamin [Flintstones] 1 each PO QAM 05/17/15 [History] Omeprazole [PriLOSEC] 20 mg PO QAM 05/17/15 [History] Simethicone [Gas-X] 250 mg PO BID 05/17/15 [History] Amitriptyline [Elavil] 25 mg PO HS 04/12/17 [History] Cetirizine HCl [Zyrtec] 10 mg PO DAILY 04/12/17 [History] Cholecalciferol (Vitamin D3) [Vitamin D3] 50,000 unit PO FR 04/12/17 [History] Cyanocobalamin (Vitamin B-12) [Vitamin B12] 1,000 mcg PO DAILY 04/12/17 [History ] Escitalopram [Lexapro] 10 mg PO QAM 04/12/17 [History] Fluticasone/Salmeterol [Advair 250-50 Diskus] 1 puff IH BID 04/12/17 [History] Lurasidone [Latuda] 40 mg PO HS 04/12/17 [History] Magnesium Oxide [Magnesium] 400 mg PO DAILY 04/12/17 [History] Montelukast [Singulair] 10 mg PO DAILY 04/12/17 [History] Oxybutynin Chloride [Ditropan Xl] 15 mg PO DAILY 04/12/17 [History] Blood Sugar Diagnostic [Glucose Test Strip] 1 each QID #120 strip 04/15/17 [ Rx] Blood-Glucose Meter [Blood Glucose Monitoring] 1 each QID #1 kit 04/15/17 [Rx ] Dextrose/Maltodextrin [Glucose Powder Packets] 1 each PO DAILY PRN #30 powd.pack 04/15/17 [Rx] Fluticasone Propionate Nasal [Flonase] 50 mcg NS DAILY PRN bottle 04/15/17 [Rx] GuaiFENesin ER [Mucinex] 600 mg PO BID PRN #1 bottle 04/15/17 [Rx] Insulin DETEMIR [Levemir] 50 unit SQ BID #2 vial 04/15/17 [Rx] Insulin LISPRO [HumaLOG] 14 units SQ TIDWM #2 vial 04/15/17 [Rx] Lancets 1 each QID #120 each 04/15/17 [Rx] Lisinopril [Zestril] 10 mg PO DAILY #30 tablet 04/15/17 [Rx] Nicotine Patch [Nicoderm] 21 mg TD DAILY #20 patch.td24 04/15/17 [Rx] Syringe-Needle,Insulin,0.5 ml [Insulin Syringe] 1 each QID #120 disp.syrin [Rx] levoFLOXacin [Levaquin] 500 mg PO DAILY #3 tablet 04/15/17 [Rx] predniSONE [PredniSONE] 40 mg PO DAILY #8 tablet 04/15/17 [Rx] Allergies/Adverse Reactions: 3 Allergy/AdvReac Type Severity Reaction Status Date / Time Oxycodone [From OxyContin] Allergy See Verified 07/07/16 04:22 Comments Date of admission: 04/12/17 08:54 Primary care physician: Tin Tan MD Discharging clinician: Duane Daley Anticipated date of discharge: 04/15/17 - Patient Status Disposition: Home, Self-Care Condition: Fair Functional capacity at discharge: wheelchair bound Overall status at discharge: patient is progressing back to baseline - Discharge Instructions Instructions: Asthma (DC), Acute Respiratory Distress Syndrome (DC), Diabetes Mellitus Type 2 in Adults (DC), Chronic Obstructive Pulmonary Disease (DC) Follow Up With: Tin Tan MD [Primary Care Provider] - 04/21/17 2:30 pm () - Diet and Activity Activity: resume usual activities as tolerated Diet: diabetic diet, low fat, low cholesterol, low salt diet Interval History: See below Hospital course: Ms. Tapia is a 36 year old female with Depression/Bipolar, Morbid Obesity with BMI 61.9, COPD, Tobacco abuse, HTN, MARILEE on CPAP She was admitted for acute on chronic hypercapneic and hypoxic respiratory failure secondary to COPDE. She was also incidentally found to have Uncontrolled DM. She has made significant improvement with BiPAP, Duonebs, Prednisone and antibiotics She has been started on insulin and has tolerated increment in doses, with FS now being in the 200s She is seen and evaluated at bedside this morning, with no new complains, chest is clear and patient is clinically improved She is educated extensively on smoking cessation, diagnosis, management and complications of DM She is also educated on signs and symptoms of hypoglycemia, glucose monitoring and importance of compliance with medications,dietary modification and follow up Flu vaccine administered Follow up with PCP Rest of details is as in each diagnosis Time spent discussing smoking cessation with patient: 3 to 10 minutes - Time Spent with Patient Total time spent providing and/or coordinating discharge services: Greater than 30 minutes - Constitutional Vitals: Temp Pulse Resp BP Pulse Ox 98.5 F 89 20 157/77 94 04/15/17 07:57 04/15/17 07:57 04/15/17 07:57 04/15/17 07:57 04/15/17 07:57 General appearance: Present: cooperative, morbidly obese, pleasant, no acute distress, answers questions appropriately - Head Head exam: Present: atraumatic, normocephalic - Eye Eye exam: Present: PERRL, conjuntiva pink, sclera anicteric Pupils: Present: PERRL - Neck Neck exam general surgery: Present: supple, trachea midline. Absent: lymphadenopathy - Respiratory Respiratory exam: Present: CTAB. Absent: accessory muscle use, rales, rhonchi, wheezes - Cardiovascular Cardiovascular exam: Present: RRR, +S1, +S2. Absent: diastolic murmur, gallop, rubs, systolic murmur - GI/Abdominal GI/Abdominal exam: Present: normal bowel sounds, soft, no peritoneal signs. Absent: distended, tenderness - Extremities Exam Extremities exam: Present: warm, radial pulses palpable and symmetrical. Absent : calf tenderness, cyanotic, pedal edema - Neurological Exam Neurological exam: Present: alert, CN II-XII intact, oriented X3, no focal deficits. Absent: pronater drift, facial droop, speech deficit - Skin Skin exam: Present: dry, intact
[2017-04-15] MEDS ORDERED: predniSONE 20 MG TABLET PO SCH (09:00)
[2017-04-15] MEDS ORDERED: levoFLOXacin 500 MG TABLET PO SCH (09:00)
[2017-04-15] MEDS ORDERED: Insulin DETEMIR 100 UNIT/ML X5UNITS SQ SCH (09:00)
--- NOTE | 2017-04-15 09:53 | Physician Discharge Referral ---
Home Health/Hosp Referral Info Transfer to: Home Health Attending Provider: Thuy Provider in Charge Post Discharge: PCP - Diagnosis (1) Tobacco abuse disorder Priority: Secondary Status: Chronic (2) Chest pain Priority: Primary Status: Resolved (3) COPD exacerbation Priority: Primary Status: Acute (4) Physical deconditioning Priority: Secondary Status: Chronic (5) Acute on chronic respiratory failure Priority: Primary Status: Acute (6) MARILEE (obstructive sleep apnea) Priority: Secondary Status: Chronic (7) Morbid obesity with BMI of 60.0-69.9, adult Priority: Secondary Status: Chronic (8) History of DVT (deep vein thrombosis) Priority: Secondary Status: Resolved (9) Newly diagnosed diabetes Priority: Primary Status: Acute - Respiratory Orders Oxygen / L per min (2L/min at night) Smoking Cessation: Smoking cessation has been advised. For more information, call the [place] Tobacco Quit Line at 4-159-RIRS-NOW. - Diet/Nutrition Diet/Nutrition Orders: No Added Salt (KAMILAH), Cardiac, No Concentrated Sweets - Activity Activity Orders: Up ad brian - Services Needed Following services are medically necessary services: Nursing, Home Health Aide - Transfer Medications Prescriptions: Blood Sugar Diagnostic [Glucose Test Strip] 1 each QID #120 strip Blood-Glucose Meter [Blood Glucose Monitoring] 1 each QID #1 kit Dextrose/Maltodextrin [Glucose Powder Packets] 1 each PO DAILY PRN #30 powd.pack PRN Reason: Hypoglycemia GuaiFENesin ER [Mucinex] 600 mg PO BID PRN #1 bottle PRN Reason: Congestion Insulin DETEMIR [Levemir] 50 unit SQ BID #2 vial Insulin LISPRO [HumaLOG] 14 units SQ TIDWM #2 vial Lancets 1 each QID #120 each levoFLOXacin [Levaquin] 500 mg PO DAILY #3 tablet Lisinopril [Zestril] 10 mg PO DAILY #30 tablet Nicotine Patch [Nicoderm] 21 mg TD DAILY #20 patch.td24 predniSONE [PredniSONE] 40 mg PO DAILY #8 tablet Syringe-Needle,Insulin,0.5 ml [Insulin Syringe] 1 each QID #120 disp.syrin Home Medications: Albuterol Neb [Proventil Neb] 2.5 mg IH Q4HR PRN 05/17/15 [History] Docusate Sodium [Colace] 200 mg PO BID 05/17/15 [History] Escitalopram [Lexapro] 20 mg PO HS 05/17/15 [History] Gabapentin [Neurontin] 1,200 mg PO TID 05/17/15 [History] Multivitamin [Flintstones] 1 each PO QAM 05/17/15 [History] Omeprazole [PriLOSEC] 20 mg PO QAM 05/17/15 [History] Simethicone [Gas-X] 250 mg PO BID 05/17/15 [History] Amitriptyline [Elavil] 25 mg PO HS 04/12/17 [History] Cetirizine HCl [Zyrtec] 10 mg PO DAILY 04/12/17 [History] Cholecalciferol (Vitamin D3) [Vitamin D3] 50,000 unit PO FR 04/12/17 [History] Cyanocobalamin (Vitamin B-12) [Vitamin B12] 1,000 mcg PO DAILY 04/12/17 [History ] Escitalopram [Lexapro] 10 mg PO QAM 04/12/17 [History] Fluticasone/Salmeterol [Advair 250-50 Diskus] 1 puff IH BID 04/12/17 [History] Lurasidone [Latuda] 40 mg PO HS 04/12/17 [History] Magnesium Oxide [Magnesium] 400 mg PO DAILY 04/12/17 [History] Montelukast [Singulair] 10 mg PO DAILY 04/12/17 [History] Oxybutynin Chloride [Ditropan Xl] 15 mg PO DAILY 04/12/17 [History] Blood Sugar Diagnostic [Glucose Test Strip] 1 each QID #120 strip 04/15/17 [ Rx] Blood-Glucose Meter [Blood Glucose Monitoring] 1 each QID #1 kit 04/15/17 [Rx ] Dextrose/Maltodextrin [Glucose Powder Packets] 1 each PO DAILY PRN #30 powd.pack 04/15/17 [Rx] Fluticasone Propionate Nasal [Flonase] 50 mcg NS DAILY PRN bottle 04/15/17 [Rx] GuaiFENesin ER [Mucinex] 600 mg PO BID PRN #1 bottle 04/15/17 [Rx] Insulin DETEMIR [Levemir] 50 unit SQ BID #2 vial 04/15/17 [Rx] Insulin LISPRO [HumaLOG] 14 units SQ TIDWM #2 vial 04/15/17 [Rx] Lancets 1 each MC QID #120 each 04/15/17 [Rx] Lisinopril [Zestril] 10 mg PO DAILY #30 tablet 04/15/17 [Rx] Nicotine Patch [Nicoderm] 21 mg TD DAILY #20 patch.td24 04/15/17 [Rx] Syringe-Needle,Insulin,0.5 ml [Insulin Syringe] 1 each MC QID #120 disp.syrin [Rx] levoFLOXacin [Levaquin] 500 mg PO DAILY #3 tablet 04/15/17 [Rx] predniSONE [PredniSONE] 40 mg PO DAILY #8 tablet 04/15/17 [Rx] Allergies/Adverse Reactions: 3 Allergy/AdvReac Type Severity Reaction Status Date / Time Oxycodone [From OxyContin] Allergy See Verified 07/07/16 04:22 Comments Certification: Further, I certify that my clinical findings support that this patient is homebound (i.e. absences from home require considerable and taxing effort and are for medical reasons or yazidi services or infrequently or short duration when for other reasons) because: Homebound Reason: Patient requires assistance of a person or device to safely leave home Attestation: My signature below is to certify that this patient is under my care and that I, or nurse practitioner, or a physician's assistant infant toddler teacher working with me, has a face-to -face encounter with this patient.
== END 2017-04-15 10:24 | disposition home or self-care (01) | DRG 140 ==
LOC: EMEROO 01:40 → 2NNU 01:40 → SUATTDRO 08:54
PROVIDERS: ADMIT Family Medicine; ATTEND Internal Medicine

== ENCOUNTER 2017-10-30 15:54 | Observation (INO) ==
[2017-10-30] MEDS ORDERED: methylPREDNISolone 125 MG/2 ML VIAL IVP ONE (15:59)
[2017-10-30] MEDS ORDERED: Ipratropium/Albuterol Neb 3 ML IH ONE (15:59)
--- NOTE | 2017-10-30 16:04 | Emergency Department Note ---
Disposition Clinical Impression: Acute exacerbation of chronic obstructive airways disease, Elevated lactic acid level, Hyperglycemia Pneumonia Qualifiers: Pneumonia type: due to unspecified organism Laterality: bilateral Lung location : unspecified part of lung Qualified Code(s): J18.9 - Pneumonia, unspecified organism Disposition: Admitted As Inpatient Condition: Fair Referrals: Jairon Del Cid MD [Primary Care Provider] - Forms: ED Satisfaction Letter Time of Disposition: 18:57 General Adult HPI - General Chief complaint: ED Shortness of Breath/Dyspnea Stated complaint: JENNIFER Time Seen by Provider: 10/30/17 15:58 Source: patient, EMS Mode of arrival: EMS Limitations: no limitations Nursing Notes Reviewed: Yes Vital Signs Reviewed: Yes - History of Present Illness HPI Narrative: Patient is a 37-year-old female that presents the emergency department for shortness of breath. She states that she has a history of COPD, chronic respiratory failure and asthma and today her symptoms had worsened and she tried using one of her nebulized breathing treatments at home which provided some relief but her symptoms returned shortly after completion of the breathing treatment. Patient states that she does wear oxygen at night and is just qualified for daily home oxygen but has not received this yet. Patient states that she does smoke 2-1/2 packs per day and states that she needs to quit smoking. Patient does state that she has some mild chest pain which she associates with her coughing. Patient denies any radiation of the chest pain. Pain Scale: 0 - Related Data Home Medications Medication Instructions Recorded Confirmed Docusate Sodium [Colace] 200 mg PO BID 05/17/15 10/04/17 Omeprazole [PriLOSEC] 20 mg PO QAM 05/17/15 10/04/17 Simethicone [Gas-X] 250 mg PO BID 05/17/15 10/04/17 Cetirizine HCl [Zyrtec] 10 mg PO DAILY 04/12/17 10/04/17 Cholecalciferol (Vitamin D3) 50,000 unit PO FR 04/12/17 10/04/17 [Vitamin D3] Montelukast [Singulair] 10 mg PO DAILY 04/12/17 10/04/17 Albuterol Sulfate [Ventolin Hfa] 2 puff IH Q4H PRN 07/15/17 10/04/17 Amitriptyline [Elavil] 100 mg PO HS 07/15/17 10/04/17 Dulaglutide [Trulicity] 0.75 mg IJ MO 07/15/17 10/04/17 Fluticasone Propionate Nasal 1 spr NS BID PRN 07/15/17 10/04/17 [Flonase] Insulin Degludec [Tresiba 126 unit SQ QAM 07/15/17 10/04/17 Flextouch U-100] Insulin LISPRO [HumaLOG] 20 - 35 units SQ TIDWM 07/15/17 10/04/17 Ipratropium/Albuterol Neb [Duoneb] 3 ml IH Q6HR 07/15/17 10/04/17 Ketoconazole 2% CRM [Nizoral Cream] 1 appl TP BID 07/15/17 10/04/17 Lisinopril [Zestril] 5 mg PO DAILY 07/15/17 10/04/17 Lurasidone HCl [Latuda] 80 mg PO DAILY 07/15/17 10/04/17 Meloxicam 15 mg PO DAILY 07/15/17 10/04/17 Mv-Mn/FA/Vit K/Lycop/Lut/Coq10 1 tab PO DAILY 07/15/17 10/04/17 [Daily Multivitamin Capsule] Solifenacin Succinate [Vesicare] 10 mg PO DAILY 07/15/17 10/04/17 Ascorbate Calcium [Vitamin C] 500 mg PO BID 09/14/17 10/04/17 Atorvastatin [Lipitor] 20 mg PO HS 09/14/17 10/04/17 Cyanocobalamin (Vitamin B-12) 1,000 mcg PO DAILY 09/14/17 10/04/17 [Vitamin B12] FLUoxetine HCl [Prozac] 40 mg PO HS 09/14/17 10/04/17 Magnesium 250 mg PO DAILY 09/14/17 10/04/17 Quetiapine Fumarate [Seroquel] 50 mg PO HS 09/14/17 10/04/17 Buspirone HCl [Buspar] 7.5 mg PO BID 10/30/17 10/30/17 Cefdinir [Omnicef] 300 mg PO BID 10/30/17 10/30/17 Fluticasone/Salmeterol [Advair 1 puff IH BID 10/30/17 10/30/17 250-50 Diskus] Guaifenesin/Dm/Pseudoephedrine 1 tab PO Q6H 10/30/17 10/30/17 [Capmist Dm Tablet] Metformin HCl [Metformin HCl ER] 500 mg PO BID 10/30/17 10/30/17 Metoprolol Succinate [Toprol Xl] 50 mg PO DAILY 10/30/17 10/30/17 Oxycodone HCl [Oxaydo] 5 mg PO TID 10/30/17 10/30/17 Pregabalin [Lyrica] 100 mg PO BID 10/30/17 10/30/17 Tizanidine HCl 4 mg PO TID 10/30/17 10/30/17 Allergies Allergy/AdvReac Type Severity Reaction Status Date / Time Oxycodone [From OxyContin] Allergy See Verified 10/30/17 16:01 Comments All systems ED: reviewed and negative except as stated. 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 COMPUTER BOOKKEEPER history - Social History Smoking Status: Current every day smoker Smokeless Tobacco Status: No Alcohol use: Reports: occasionally Drug use: Reports: none Physical Exam - General Limitations: no limitations General appearance: alert, in no apparent distress - Head Head exam: atraumatic, normocephalic - Eye Eye exam: Present: normal appearance, EOMI - Neck Neck exam: Present: normal inspection, full ROM, trachea midline - Respiratory Respiratory exam: Present: other (Patient has coarse breath sounds bilaterally with poor aeration.) - Cardiovascular Cardiovascular exam: Present: regular rate, normal rhythm, normal heart sounds, +S1, +S2 - Abdominal Exam Abdominal exam: Present: soft, Non-Tender, normal bowel sounds - Neurological Exam Neurological exam: Present: alert, oriented X3 - Psychiatric Psychiatric exam: Present: normal affect, normal mood - Skin Skin exam: Present: warm, dry, intact Course - Reevaluation(s) Reevaluation #1: I called and spoke with and he has accepted the patient to their service. The patient be admitted to the hospital this time for further evaluation and management. Time: :54 Vital Signs Temperature 99.5 F 10/30/17 15:58 Pulse Rate 98 10/30/17 15:58 Respiratory Rate 20 10/30/17 15:58 Blood Pressure 153/105 10/30/17 15:58 O2 Sat by Pulse Oximetry 93 10/30/17 15:58 Temperature 99.5 F 10/30/17 15:58 Pulse Rate 98 10/30/17 15:58 Respiratory Rate 20 10/30/17 15:58 Blood Pressure 153/105 10/30/17 15:58 O2 Sat by Pulse Oximetry 93 10/30/17 15:58 Oxygen Delivery Oxygen Delivery Room Air Medical Decision Making - MDM Narrative Medical decision making narrative: Due to the patient presenting with worsening of her shortness of breath and cough this seems likely to be a exacerbation of her underlying respiratory conditions. We will obtain a CBC, BMP, troponin and chest x-ray and EKG. The patient will also be given 125 Solu-Medrol and a breathing treatment here in the emergency department. Patient did have an elevated white count of 15. Patient lactic acid was 4.0. She was also hyperglycemic at over 400. Patient will be given IV fluids. Troponin was negative. The EKG did not show any acute ischemic changes. Due to the patient having increased oxygen demand, lactic acid of 4.0 and worsening of her respiratory symptoms from baseline feel that is necessary for the patient to be admitted to the hospital for further evaluation and management. I called and spoke to the hospitalist and he has accepted the patient to their service. Patient will be admitted to the hospital at this time for further evaluation. - Medical Records Medical records reviewed: Yes I reviewed the patient's medical records. - Lab Data Lab results reviewed: Yes I reviewed the patient's lab results. Result diagrams: 10/30/17 16:07 10/30/17 16:07 Lab Results 10/30/17 10/30/17 10/30/17 Range/Units 16:07 16:07 16:07 WBC 15.0 H (4.3-11.1) K/mcL RBC 5.53 H (3.82-4.97) M/mcL Hgb 16.3 H (11.5-15.4) g/dL Hct 48.6 H (35.3-44.9) % MCV 87.9 (83.0-100.0) fL MCH 29.5 (28.0-33.3) pg MCHC 33.5 (31.6-35.5) g/dL RDW 13.7 (11.5-14.5) % Plt Count 301 (140-400) K/mcL MPV 10.8 (9.4-12.4) fL Immature Gran % 1.3 (0-4) % Seg Neutrophils % 84.3 % Lymphocytes % 10.8 % Monocytes % 3.2 % Eosinophils % 0.1 % Basophils % 0.3 % Neutrophils # 12.7 H (1.6-8.9) K/mcL Lymphocytes # 1.6 (0.6-4.6) K/mcL Monocytes # 0.5 (0.0-1.3) K/mcL Eosinophils # 0.0 (0.0-0.6) K/mcL Basophils # 0.1 (0.0-0.2) K/mcL D-Dimer (0-500) ng/mLFEU Sodium 131 L (136-145) mEq/L Potassium 4.9 (3.5-5.1) mEq/L Chloride 94 L (98-107) mEq/L Carbon Dioxide 26 (23-29) mEq/L BUN 14 (6-20) mg/dL Creatinine 0.76 (0.60-1.20) mg/dL Est GFR ( Amer) > 60 (> 60) Est GFR (Non-Af Amer) > 60 (> 60) BUN/Creatinine Ratio 18 (6-26) Glucose 476 H (70-105) mg/dL Calculated Osmolality 293 (280-300) Lactic Acid 4.0 H* (0.5-2.2) mmol/L Calcium 9.4 (8.6-10.3) mg/dL Troponin I < 0.03 (< 0.04) ng/mL B-Natriuretic Peptide (Less than 100) pg/mL 10/30/17 10/30/17 Range/Units 16:07 16:07 WBC (4.3-11.1) K/mcL RBC (3.82-4.97) M/mcL Hgb (11.5-15.4) g/dL Hct (35.3-44.9) % MCV (83.0-100.0) fL MCH (28.0-33.3) pg MCHC (31.6-35.5) g/dL RDW (11.5-14.5) % Plt Count (140-400) K/mcL MPV (9.4-12.4) fL Immature Gran % (0-4) % Seg Neutrophils % % Lymphocytes % % Monocytes % % Eosinophils % % Basophils % % Neutrophils # (1.6-8.9) K/mcL Lymphocytes # (0.6-4.6) K/mcL Monocytes # (0.0-1.3) K/mcL Eosinophils # (0.0-0.6) K/mcL Basophils # (0.0-0.2) K/mcL D-Dimer 331 (0-500) ng/mLFEU Sodium (136-145) mEq/L Potassium (3.5-5.1) mEq/L Chloride (98-107) mEq/L Carbon Dioxide (23-29) mEq/L BUN (6-20) mg/dL Creatinine (0.60-1.20) mg/dL Est GFR ( Amer) (> 60) Est GFR (Non-Af Amer) (> 60) BUN/Creatinine Ratio (6-26) Glucose (70-105) mg/dL Calculated Osmolality (280-300) Lactic Acid (0.5-2.2) mmol/L Calcium (8.6-10.3) mg/dL Troponin I (< 0.04) ng/mL B-Natriuretic Peptide 31 (Less than 100) pg/mL - Radiology Data Radiology results reviewed: Yes I reviewed the patient's radiology results. Chest X-Ray 10/30/17 15:59 IMPRESSION: Questionable bilateral upper lobe paramediastinal airspace disease versus portable expiratory study on a large patient. When the patient is able, a follow-up PA and lateral examination of the chest would be helpful. D/ / Cam Scherer MD / Cam Scherer MD Interpreting Provider: Cam Scherer MD - EKG Data EKG #1 EKG attestation: Yes I reviewed and interpreted this EKG. EKG results narrative: EKG shows a sinus rhythm and rate of 97 bpm, MS interval of 152, QRS duration of 86, QTc of 379 with a normal axis. There is no evidence of STEMI on EKG.
[2017-10-30 16:18] LABS: Basophils # 0.1 K/mcL (0.0-0.2); Basophils % 0.3 %; Eosinophils % 0.1 %; Hematocrit 48.6 % (35.3-44.9); Hemoglobin 16.3 g/dL (11.5-15.4); Immature Granulocytes % 1.3 % (0-4); Lymphocytes # 1.6 K/mcL (0.6-4.6); Lymphocytes % 10.8 %; Mean Corpuscular HGB Conc 33.5 g/dL (31.6-35.5); Mean Corpuscular Hemoglobin 29.5 pg (28.0-33.3); Mean Corpuscular Volume 87.9 fL (83.0-100.0); Mean Platelet Volume 10.8 fL (9.4-12.4); Monocytes # 0.5 K/mcL (0.0-1.3); Monocytes % 3.2 %; Neutrophils # 12.7 K/mcL (1.6-8.9); Platelet Count 301 K/mcL (140-400); Red Blood Count 5.53 M/mcL (3.82-4.97); Red Cell Distribution Width 13.7 % (11.5-14.5); Segmented Neutrophils % 84.3 %
--- NOTE | 2017-10-30 16:34 | Emergency Department Note ---
Disposition Clinical Impression: Acute exacerbation of chronic obstructive airways disease, Elevated lactic acid level, Hyperglycemia Pneumonia Qualifiers: Pneumonia type: due to unspecified organism Laterality: bilateral Lung location : unspecified part of lung Qualified Code(s): J18.9 - Pneumonia, unspecified organism Disposition: Admitted As Inpatient Condition: Fair General Adult HPI - General Chief complaint: ED Shortness of Breath/Dyspnea Stated complaint: JENNIFER Time Seen by Provider: 10/30/17 15:58 Source: patient, EMS Mode of arrival: EMS Limitations: no limitations Nursing Notes Reviewed: Yes Vital Signs Reviewed: Yes - History of Present Illness Pain Scale: 0 - Related Data Home Medications Medication Instructions Recorded Confirmed Docusate Sodium [Colace] 200 mg PO BID 05/17/15 10/30/17 Omeprazole [PriLOSEC] 20 mg PO QAM 05/17/15 10/30/17 Simethicone [Gas-X] 250 mg PO BID 05/17/15 10/30/17 Cetirizine HCl [Zyrtec] 10 mg PO DAILY 04/12/17 10/30/17 Cholecalciferol (Vitamin D3) 50,000 unit PO FR 04/12/17 10/30/17 [Vitamin D3] Montelukast [Singulair] 10 mg PO DAILY 04/12/17 10/30/17 Albuterol Sulfate [Ventolin Hfa] 2 puff IH Q4H PRN 07/15/17 10/30/17 Amitriptyline [Elavil] 100 mg PO HS 07/15/17 10/30/17 Dulaglutide [Trulicity] 0.75 mg IJ MO 07/15/17 10/30/17 Fluticasone Propionate Nasal 1 spr NS BID PRN 07/15/17 10/30/17 [Flonase] Insulin Degludec [Tresiba 126 unit SQ QAM 07/15/17 10/30/17 Flextouch U-100] Insulin LISPRO [HumaLOG] 45 units SQ TIDWM PRN 07/15/17 10/30/17 Ipratropium/Albuterol Neb [Duoneb] 3 ml IH Q6HR 07/15/17 10/30/17 Ketoconazole 2% CRM [Nizoral Cream] 1 appl TP BID 07/15/17 10/30/17 Lisinopril [Zestril] 5 mg PO DAILY 07/15/17 10/30/17 Lurasidone HCl [Latuda] 80 mg PO DAILY 07/15/17 10/30/17 Meloxicam 15 mg PO DAILY 07/15/17 10/30/17 Mv-Mn/FA/Vit K/Lycop/Lut/Coq10 1 tab PO DAILY 07/15/17 10/30/17 [Daily Multivitamin Capsule] Solifenacin Succinate [Vesicare] 10 mg PO DAILY 07/15/17 10/30/17 Ascorbate Calcium [Vitamin C] 500 mg PO BID 09/14/17 10/30/17 Atorvastatin [Lipitor] 20 mg PO HS 09/14/17 10/30/17 Cyanocobalamin (Vitamin B-12) 1,000 mcg PO DAILY 09/14/17 10/30/17 [Vitamin B12] FLUoxetine HCl [Prozac] 60 mg PO HS 09/14/17 10/30/17 Magnesium 250 mg PO DAILY 09/14/17 10/30/17 Quetiapine Fumarate [Seroquel] 50 mg PO HS 09/14/17 10/30/17 Buspirone HCl [Buspar] 7.5 mg PO BID 10/30/17 10/30/17 Cefdinir [Omnicef] 300 mg PO BID 10/30/17 10/30/17 Fluticasone/Salmeterol [Advair 1 puff IH BID 10/30/17 10/30/17 250-50 Diskus] Guaifenesin/Dm/Pseudoephedrine 1 tab PO Q6H 10/30/17 10/30/17 [Capmist Dm Tablet] Metformin HCl [Metformin HCl ER] 500 mg PO BID 10/30/17 10/30/17 Metoprolol Succinate [Toprol Xl] 50 mg PO DAILY 10/30/17 10/30/17 Oxycodone HCl [Oxaydo] 5 mg PO TID 10/30/17 10/30/17 Pregabalin [Lyrica] 100 mg PO BID 10/30/17 10/30/17 Tizanidine HCl 4 mg PO TID 10/30/17 10/30/17 Allergies Allergy/AdvReac Type Severity Reaction Status Date / Time Oxycodone [From OxyContin] Allergy See Verified 10/30/17 16:01 Comments All systems ED: reviewed and negative except as stated. Cardiovascular: Reports: chest pain Respiratory: Reports: cough, dyspnea Gastrointestinal: Denies: abdominal pain, nausea, vomiting Past Medical History - Past Medical History Medical history: Reports: asthma, COPD, DVT, hypertension, syncope, other Surgical history: Reports: other Psychiatric history: Reports: anxiety, bipolar, depression, PTSD, other YIELD ANALYST history: Reports: no YIELD ANALYST history - Social History Smoking Status: Current every day smoker Smokeless Tobacco Status: No Alcohol use: Reports: occasionally Drug use: Reports: none Physical Exam - General Limitations: no limitations General appearance: alert, in no apparent distress Course - Reevaluation(s) Reevaluation #1: I examined this patient and my medical decision-making was reviewed with Dr. Sellers. I agree with the documented findings, disposition and treatment plan as described. This is a 37 year-old female with history of morbid obesity, advanced COPD (O2- dependent), yudy-operative DVT, and IDDM, who presents with cough and dyspnea. She reports nonproductive cough for a few weeks and worsening dyspnea today. Associated with wheezing and central chest pain, mainly with coughing. She denies any associated fever, leg pain or swelling. She says this feels like past COPD exacerbations. VS reviewed. On exam, patient is in mild to moderate respiratory distress, with tachypnea, frequent cough, coarse breath sounds and expiratory wheezes bilaterally. Overall, patient's symptoms and exam suggest COPD exacerbation, but PNA, PE, and CHF are also considerations. We will treat with nebs, steroids and will check CXR, EKG, troponin, and D-dimer. Time: 16:26 Vital Signs Temperature 99.5 F 10/30/17 15:58 Pulse Rate 98 10/30/17 15:58 Respiratory Rate 20 10/30/17 15:58 Blood Pressure 153/105 10/30/17 15:58 O2 Sat by Pulse Oximetry 93 10/30/17 15:58 Temperature 98 F 11/01/17 16:00 Pulse Rate 85 11/01/17 16:00 Respiratory Rate 19 11/01/17 16:00 Blood Pressure 143/95 11/01/17 16:00 O2 Sat by Pulse Oximetry 98 11/01/17 16:00 Oxygen Delivery Oxygen Delivery Nasal Cannula Medical Decision Making - Lab Data Lab results reviewed: Yes I reviewed the patient's lab results. Result diagrams: 11/01/17 04:50 11/01/17 04:50 Lab Results 10/30/17 10/30/17 10/30/17 Range/Units 16:07 16:07 16:07 WBC 15.0 H (4.3-11.1) K/mcL RBC 5.53 H (3.82-4.97) M/mcL Hgb 16.3 H (11.5-15.4) g/dL Hct 48.6 H (35.3-44.9) % MCV 87.9 (83.0-100.0) fL MCH 29.5 (28.0-33.3) pg MCHC 33.5 (31.6-35.5) g/dL RDW 13.7 (11.5-14.5) % Plt Count 301 (140-400) K/mcL MPV 10.8 (9.4-12.4) fL Immature Gran % 1.3 (0-4) % Seg Neutrophils % 84.3 % Lymphocytes % 10.8 % Monocytes % 3.2 % Eosinophils % 0.1 % Basophils % 0.3 % Neutrophils # 12.7 H (1.6-8.9) K/mcL Lymphocytes # 1.6 (0.6-4.6) K/mcL Monocytes # 0.5 (0.0-1.3) K/mcL Eosinophils # 0.0 (0.0-0.6) K/mcL Basophils # 0.1 (0.0-0.2) K/mcL D-Dimer (0-500) ng/mLFEU Sodium 131 L (136-145) mEq/L Potassium 4.9 (3.5-5.1) mEq/L Chloride 94 L (98-107) mEq/L Carbon Dioxide 26 (23-29) mEq/L BUN 14 (6-20) mg/dL Creatinine 0.76 (0.60-1.20) mg/dL Est GFR ( Amer) > 60 (> 60) Est GFR (Non-Af Amer) > 60 (> 60) BUN/Creatinine Ratio 18 (6-26) Glucose 476 H (70-105) mg/dL Est Mean Plasma Glucose mg/dl Hemoglobin A1c ( - 5.6) % Calculated Osmolality 293 (280-300) Lactic Acid 4.0 H* (0.5-2.2) mmol/L Calcium 9.4 (8.6-10.3) mg/dL Troponin I < 0.03 (< 0.04) ng/mL B-Natriuretic Peptide (Less than 100) pg/mL 10/30/17 10/30/17 10/30/17 Range/Units 16:07 16:07 16:07 WBC (4.3-11.1) K/mcL RBC (3.82-4.97) M/mcL Hgb (11.5-15.4) g/dL Hct (35.3-44.9) % MCV (83.0-100.0) fL MCH (28.0-33.3) pg MCHC (31.6-35.5) g/dL RDW (11.5-14.5) % Plt Count (140-400) K/mcL MPV (9.4-12.4) fL Immature Gran % (0-4) % Seg Neutrophils % % Lymphocytes % % Monocytes % % Eosinophils % % Basophils % % Neutrophils # (1.6-8.9) K/mcL Lymphocytes # (0.6-4.6) K/mcL Monocytes # (0.0-1.3) K/mcL Eosinophils # (0.0-0.6) K/mcL Basophils # (0.0-0.2) K/mcL D-Dimer 331 (0-500) ng/mLFEU Sodium (136-145) mEq/L Potassium (3.5-5.1) mEq/L Chloride (98-107) mEq/L Carbon Dioxide (23-29) mEq/L BUN (6-20) mg/dL Creatinine (0.60-1.20) mg/dL Est GFR ( Amer) (> 60) Est GFR (Non-Af Amer) (> 60) BUN/Creatinine Ratio (6-26) Glucose (70-105) mg/dL Est Mean Plasma Glucose 223 mg/dl Hemoglobin A1c 9.4 H ( - 5.6) % Calculated Osmolality (280-300) Lactic Acid (0.5-2.2) mmol/L Calcium (8.6-10.3) mg/dL Troponin I (< 0.04) ng/mL B-Natriuretic Peptide 31 (Less than 100) pg/mL 10/30/17 Range/Units 20:17 WBC (4.3-11.1) K/mcL RBC (3.82-4.97) M/mcL Hgb (11.5-15.4) g/dL Hct (35.3-44.9) % MCV (83.0-100.0) fL MCH (28.0-33.3) pg MCHC (31.6-35.5) g/dL RDW (11.5-14.5) % Plt Count (140-400) K/mcL MPV (9.4-12.4) fL Immature Gran % (0-4) % Seg Neutrophils % % Lymphocytes % % Monocytes % % Eosinophils % % Basophils % % Neutrophils # (1.6-8.9) K/mcL Lymphocytes # (0.6-4.6) K/mcL Monocytes # (0.0-1.3) K/mcL Eosinophils # (0.0-0.6) K/mcL Basophils # (0.0-0.2) K/mcL D-Dimer (0-500) ng/mLFEU Sodium (136-145) mEq/L Potassium (3.5-5.1) mEq/L Chloride (98-107) mEq/L Carbon Dioxide (23-29) mEq/L BUN (6-20) mg/dL Creatinine (0.60-1.20) mg/dL Est GFR ( Amer) (> 60) Est GFR (Non-Af Amer) (> 60) BUN/Creatinine Ratio (6-26) Glucose (70-105) mg/dL Est Mean Plasma Glucose mg/dl Hemoglobin A1c ( - 5.6) % Calculated Osmolality (280-300) Lactic Acid 3.7 H (0.5-2.2) mmol/L Calcium (8.6-10.3) mg/dL Troponin I (< 0.04) ng/mL B-Natriuretic Peptide (Less than 100) pg/mL - Radiology Data Radiology results reviewed: Yes I reviewed the patient's radiology results. XR/XR chest 1V portable IMPRESSION: Questionable bilateral upper lobe paramediastinal airspace disease versus portable expiratory study on a large patient. When the patient is able, a follow-up PA and lateral examination of the chest would be helpful. - EKG Data EKG #1 EKG attestation: Yes I reviewed and interpreted this EKG. EKG shows normal: sinus rhythm Rate: normal Rhythm: NSR [place]/QRS: normal When compared to previous EKG there are: previous EKG unavailable
[2017-10-30 16:40] LABS: Troponin I < 0.03 ng/mL (< 0.04)
[2017-10-30 16:41] LABS: BUN/Creatinine Ratio 18 (6-26); Blood Urea Nitrogen 14 mg/dL (6-20); Calcium 9.4 mg/dL (8.6-10.3); Carbon Dioxide 26 mEq/L (23-29); Chloride 94 mEq/L (98-107); Glucose 476 mg/dL (70-105); Osmolality,Calculated 293 (280-300); Potassium 4.9 mEq/L (3.5-5.1); Sodium 131 mEq/L (136-145); eGFR For African Americans > 60 (> 60); eGFR For Non-African Americans > 60 (> 60)
[2017-10-30] MEDS ORDERED: 0.9 % Sodium Chloride 1,000 ML IVC ONE (16:45)
[2017-10-30] MEDS ORDERED: Levofloxacin 750 MG/150 ML 750 MG/150 ML BAG IVPB ONE (16:48)
[2017-10-30] MEDS ORDERED: Acetaminophen 325 MG TABLET PO PRN (23:38)
[2017-10-30] MEDS ORDERED: Naloxone 0.4 MG/ML INJ IVP PRN (23:38)
[2017-10-30] MEDS ORDERED: D5% in Water 1,000 ML IVC PRN (23:41)
[2017-10-30] MEDS ORDERED: *HR* Dextrose 50 % in Water (Syg) 50 ML SYRINGE IVP PRN (23:41)
[2017-10-30] MEDS ORDERED: Dextrose Gel 15 GM/37.5 ML TUBE PO PRN ×2 (23:41)
[2017-10-30] MEDS ORDERED: Fluticasone Propionate Nasal 50 MCG/SPRAY BOTTLE NS PRN (23:43)
[2017-10-30 23:58] LABS: Estimated Average Glucose 223 mg/dl; Hemoglobin A1C 9.4 %
[2017-10-31] MEDS: *HR* OxyCODONE Immed Rel 5 MG TABLET PO PRN ×3 (00:29→17:36)
[2017-10-31] MEDS: FLUoxetine 20 MG CAPSULE PO SCH ×2 (00:29→22:08)
[2017-10-31] MEDS: Pregabalin 50 MG CAPSULE PO SCH ×3 (00:29→22:08)
[2017-10-31] MEDS: Insulin DETEMIR 100 UNIT/ML X5UNITS SQ SCH ×3 (00:30→22:08)
--- NOTE | 2017-10-31 00:57 | Internal Med History&Physical ---
Date of Encounter: 10/31/17 Time of Encounter: 00:15 Internal Medicine - H&P: HPI Chief complaint: Shortness of breath Admitted From: Emergency Dept Plans for Post Hospital Care: Home History of present illness: Ms. Tapia is a 37 year old morbidly obese female with history of COPD on home oxygen, and tobacco abuse, who presents with complaints of shortness of breath. Patient reports a 2-3 week history of dyspnea on exertion associated with dry cough, which has been getting worse. She has been treated with a 10 day course of Levaquin and an extended course of prednisone with no improvement in her symptoms. 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 Due to persistent symptoms including wheezing, dry cough, exertional dyspnea, she decided to present to the emergency room today. No fever, chills, palpitations, leg swelling, orthopnea. She reports that she has nocturnal home oxygen at this time, but actually qualifies for continuous O2 and she is interested in getting this prior to discharge. Patient also is a heavy smoker, unable to quit smoking. Past Med Surg Social Fam HX - Past Medical History Source: patient Medical history: asthma, COPD, DVT, diabetes, hypertension, syncope, other Psychiatric history: anxiety, bipolar, depression, PTSD - Past Surgical History Surgical History: orthopedic, other (Carpal tunnel release surgery), other ( Multiple back surgeries) - Social History Smoking Status: Current every day smoker Packs per day: 2 1/2 Smokeless Tobacco Status: No Alcohol use: occasionally Drug use: none Occupational status: disabled Current living situation: Home, With Family Activity Level: Wheelchair bound Recent Out of Country Travel Within the Last 8 Weeks: No Exposure or Possible Exposure to Illness During Travel: No - Family History Mother Living Status: Still Living Hx Family Cardiac Disorders: Yes Hx Family Endocrine Disorder: Yes Hx Family Autoimmune Disorders: Yes Maternal Grandmother Living Status: Hx Family Cardiac Disorders: Yes Hx Family Cancer: Yes Hx Family Endocrine Disorder: Yes Hx Family Neurologic Disorders: Yes Internal Medicine - H&P: Meds Docusate Sodium [Colace] 200 mg PO BID 05/17/15 [History] Omeprazole [PriLOSEC] 20 mg PO QAM 05/17/15 [History] Simethicone [Gas-X] 250 mg PO BID 05/17/15 [History] Cetirizine HCl [Zyrtec] 10 mg PO DAILY 04/12/17 [History] Cholecalciferol (Vitamin D3) [Vitamin D3] 50,000 unit PO FR 04/12/17 [History] Montelukast [Singulair] 10 mg PO DAILY 04/12/17 [History] Albuterol Sulfate [Ventolin Hfa] 2 puff IH Q4H PRN 07/15/17 [History] Amitriptyline [Elavil] 100 mg PO HS 07/15/17 [History] Dulaglutide [Trulicity] 0.75 mg IJ MO 07/15/17 [History] Fluticasone Propionate Nasal [Flonase] 1 spr NS BID PRN 07/15/17 [History] Insulin Degludec [Tresiba Flextouch U-100] 126 unit SQ QAM 07/15/17 [History] Insulin LISPRO [HumaLOG] 45 units SQ TIDWM PRN 07/15/17 [History] Ipratropium/Albuterol Neb [Duoneb] 3 ml IH Q6HR 07/15/17 [History] Ketoconazole 2% CRM [Nizoral Cream] 1 appl TP BID 07/15/17 [History] Lisinopril [Zestril] 5 mg PO DAILY 07/15/17 [History] Lurasidone HCl [Latuda] 80 mg PO DAILY 07/15/17 [History] Meloxicam 15 mg PO DAILY 07/15/17 [History] Mv-Mn/FA/Vit K/Lycop/Lut/Coq10 [Daily Multivitamin Capsule] 1 tab PO DAILY 07/15 [History] Solifenacin Succinate [Vesicare] 10 mg PO DAILY 07/15/17 [History] Ascorbate Calcium [Vitamin C] 500 mg PO BID 09/14/17 [History] Atorvastatin [Lipitor] 20 mg PO HS 09/14/17 [History] Cyanocobalamin (Vitamin B-12) [Vitamin B12] 1,000 mcg PO DAILY 09/14/17 [History ] FLUoxetine HCl [Prozac] 60 mg PO HS 09/14/17 [History] Magnesium 250 mg PO DAILY 09/14/17 [History] Quetiapine Fumarate [Seroquel] 50 mg PO HS 09/14/17 [History] Buspirone HCl [Buspar] 7.5 mg PO BID 10/30/17 [History] Cefdinir [Omnicef] 300 mg PO BID 10/30/17 [History] Fluticasone/Salmeterol [Advair 250-50 Diskus] 1 puff IH BID 10/30/17 [History] Guaifenesin/Dm/Pseudoephedrine [Capmist Dm Tablet] 1 tab PO Q6H 10/30/17 [ History] Metformin HCl [Metformin HCl ER] 500 mg PO BID 10/30/17 [History] Metoprolol Succinate [Toprol Xl] 50 mg PO DAILY 10/30/17 [History] Oxycodone HCl [Oxaydo] 5 mg PO TID 10/30/17 [History] Pregabalin [Lyrica] 100 mg PO BID 10/30/17 [History] Tizanidine HCl 4 mg PO TID 10/30/17 [History] 3 Allergy/AdvReac Type Severity Reaction Status Date / Time Oxycodone [From OxyContin] Allergy See Verified 10/30/17 16:01 Comments All Systems PM: A 10-system review of systems was performed and is negative for pertinent findings except as documented above in the HPI. - Constitutional Constitutional: no chills, no fever(s), no night sweats - EENT Eyes: no change in vision, no discharge, no pain, no photophobia Ears: no ear discharge, no ear pain, no tinnitus Nose, mouth and throat: no dysphagia, no nasal discharge, no neck pain, no sore throat - Cardiovascular Cardiovascular ROS IM: no chest pain, no diaphoresis, no dyspnea, no lightheadedness, no palpitations, no syncope - Respiratory Respiratory: cough, dyspnea, dyspnea on exertion, wheezing - Gastrointestinal Gastrointestinal: no abdominal pain, no diarrhea, no hematemesis, no hematochezia, no melena, no nausea, no vomiting - Genitourinary Genitourinary: no change in urinary stream, no dysuria, no flank pain, no hematuria - Musculoskeletal Musculoskeletal ROS IM: no numbness, no tingling - Integumentary Integumentary IM: no rash, no unusual bruising - Neurological Neurological ROS: no confusion, no convulsions, no focal weakness, no numbness, no tingling, no tremor(s) - Hematologic/Lymphatic Hematologic/Lymphatic: no easy bruising - Constitutional Vitals: Temp Pulse Resp BP Pulse Ox 98.6 F 83 18 153/90 91 10/31/17 00:23 10/31/17 00:23 10/31/17 00:23 10/31/17 00:23 10/31/17 00:23 General appearance: Present: A&O X 3, morbidly obese, answers questions appropriately - Respiratory Respiratory exam: Present: CTAB (coarse rhonchurous breath sounds B/L), wheezes (intermittent). Absent: accessory muscle use, rales, rhonchi - Cardiovascular Cardiovascular exam: Present: RRR, +S1, +S2. Absent: diastolic murmur, gallop, rubs, systolic murmur - GI/Abdominal GI/Abdominal exam: Present: normal bowel sounds, soft (obese), no peritoneal signs. Absent: distended, tenderness - Extremities Exam Extremities exam: Present: warm, radial pulses palpable and symmetrical. Absent : calf tenderness, cyanotic, pedal edema - Neurological Exam Neurological exam: Present: CN II-XII intact, oriented X3, no focal deficits. Absent: pronater drift, facial droop, speech deficit - Skin Skin exam: Present: dry, intact Internal Med - H&P Results - Labs CBC & Chem 7: 10/30/17 16:07 10/30/17 16:07 - Assessment and plan (1) Acute exacerbation of chronic obstructive airways disease Current Visit: Yes Status: Acute Assessment and plan: Continue bronchodilators nebulization, supplemental oxygen. IV steroids. Empiric IV antibiotics. Patient is an active smoker. Chest XRay shows questionable B/L upper lobe changes s/o- infection. Start IV Rocephin and Doxycycline as patient recently completed Levaquin. (2) Diabetes mellitus Current Visit: Yes Status: Chronic Assessment and plan: Blood sugars noted to be elevated, steroid-induced hyperglycemia. Start Accu- Chek blood glucose monitoring with basal bolus insulin regimen. Diabetic diet. Qualifiers: Diabetes mellitus type: type 2 Diabetes mellitus fci insulin use: with fci use Diabetes mellitus complication status: with hyperglycemia Qualified Code(s): E11.65 - Type 2 diabetes mellitus with hyperglycemia; Z79.4 - alf (current) use of insulin; Z79.4 - steward/stewardess second (current) use of insulin; Z79.4 - alf (current) use of insulin; Z79.4 - steward/stewardess second (current ) use of insulin (3) Essential hypertension Current Visit: Yes Status: Chronic Assessment and plan: Continue home medications. Blood pressure acceptable. (4) Bipolar disorder Current Visit: Yes Status: Chronic Assessment and plan: Resume home medications. Qualifiers: Active/Remission status: remission status unspecified Qualified Code(s): F31.9 - Bipolar disorder, unspecified (5) Chronic respiratory failure Current Visit: Yes Status: Chronic Assessment and plan: On nocturnal home oxygen due to COPD. Qualifiers: Respiratory failure complication: hypoxia Qualified Code(s): J96.11 - Chronic respiratory failure with hypoxia (6) Morbid obesity with BMI of 50.0-59.9, adult Current Visit: Yes Status: Chronic (7) MARILEE (obstructive sleep apnea) Current Visit: Yes Status: Chronic Assessment and plan: Continue nocturnal CPAP. (8) Tobacco abuse disorder Current Visit: Yes Status: Chronic Assessment and plan: Smoking cessation is imperative. Nicotine transdermal patch. - Time Spent With Patient Total time spent is greater than 50% in coordination of care (as documented) at patient's floor/unit and/or counseling patient:
[2017-10-31] MEDS: MethylPREDNISolone 40 MG/ML VIAL IVP SCH ×3 (00:58→16:28)
[2017-10-31] MEDS: Ipratropium/Albuterol Neb 3 ML IH PRN ×2 (01:10→21:50)
[2017-10-31] MEDS: cefTRIAXone 2,000 MG in Water for inj. (sterile) 20 ML 20 ML IVPB SCH (01:26)
[2017-10-31] MEDS: Doxycycline 100 MG in 0.9 % Sodium Chloride Mini Bag 100 ML IVPB SCH ×2 (05:45→16:29)
[2017-10-31] MEDS: Nicotine 21 MG PATCH.TD24 TD SCH ×2 (05:46→09:13)
[2017-10-31] MEDS: *HR* Enoxaparin 40 MG/0.4 ML SYRINGE SQ SCH (05:46)
[2017-10-31 05:56] LABS: Basophils % 0.1 %; Hematocrit 46.6 % (35.3-44.9); Hemoglobin 15.7 g/dL (11.5-15.4); Immature Granulocytes % 0.9 % (0-4); Lymphocytes # 1.1 K/mcL (0.6-4.6); Lymphocytes % 6.5 %; Mean Corpuscular HGB Conc 33.7 g/dL (31.6-35.5); Mean Corpuscular Hemoglobin 29.7 pg (28.0-33.3); Mean Corpuscular Volume 88.1 fL (83.0-100.0); Monocytes # 0.3 K/mcL (0.0-1.3); Monocytes % 1.8 %; Neutrophils # 15.5 K/mcL (1.6-8.9); Platelet Count 286 K/mcL (140-400); Red Blood Count 5.29 M/mcL (3.82-4.97); Red Cell Distribution Width 13.7 % (11.5-14.5); Segmented Neutrophils % 90.7 %
[2017-10-31 06:19] LABS: BUN/Creatinine Ratio 23 (6-26); Blood Urea Nitrogen 16 mg/dL (6-20); Calcium 9.3 mg/dL (8.6-10.3); Carbon Dioxide 27 mEq/L (23-29); Chloride 95 mEq/L (98-107); Glucose 416 mg/dL (70-105); Osmolality,Calculated 293 (280-300); Potassium 5.2 mEq/L (3.5-5.1); Sodium 132 mEq/L (136-145); eGFR For African Americans > 60 (> 60); eGFR For Non-African Americans > 60 (> 60)
[2017-10-31] MEDS: Budesonide/Formoterol 80/4.5 MDI IH SCH ×2 (07:40→21:49)
[2017-10-31] MEDS: Metoprolol XL (24 HR) Succ 50 MG TAB.ER.24H PO SCH (09:10)
[2017-10-31] MEDS: Loratadine 10 MG TABLET PO SCH (09:10)
[2017-10-31] MEDS: Magnesium Oxide 400 MG TABLET PO SCH (09:11)
[2017-10-31] MEDS: Insulin LISPRO 300 UNITS/3 ML VIAL SQ SCH ×4 (10:45→21:59)
--- NOTE | 2017-10-31 12:47 | Internal Med Progress Note ---
<Armando Dowd - Last Filed: 10/31/17 12:43> Date of Encounter: 10/31/17 Time of Encounter: 10:00 - Assessment and plan (1) Acute exacerbation of chronic obstructive airways disease Current Visit: Yes Status: Acute Assessment and plan: Continue bronchodilators nebulization, supplemental oxygen. Continue Solumedrol Patient is an active smoker. Chest XRay shows questionable B/L upper lobe changes s/o- infection. 2V CXR when possible. She completed course of Levaquin before this admission. Continue with IV Rocephin and Doxycycline (2) Chronic respiratory failure Current Visit: Yes Status: Chronic Assessment and plan: On nocturnal home oxygen due to COPD. Qualifiers: Respiratory failure complication: hypoxia Qualified Code(s): J96.11 - Chronic respiratory failure with hypoxia (3) Tobacco abuse disorder Current Visit: Yes Status: Chronic Assessment and plan: Smoking cessation is imperative. Nicotine transdermal patch. (4) Morbid obesity with BMI of 50.0-59.9, adult Current Visit: Yes Status: Chronic (5) MARILEE (obstructive sleep apnea) Current Visit: Yes Status: Chronic Assessment and plan: Continue nocturnal CPAP. (6) Diabetes mellitus Current Visit: Yes Status: Chronic Assessment and plan: Blood sugars noted to be elevated, steroid-induced hyperglycemia. Start Accu- Chek blood glucose monitoring with basal bolus insulin regimen. Diabetic diet. Qualifiers: Diabetes mellitus type: type 2 Diabetes mellitus fpc insulin use: with intermodal truck driver use Diabetes mellitus complication status: with hyperglycemia Qualified Code(s): E11.65 - Type 2 diabetes mellitus with hyperglycemia; Z79.4 - senior living (current) use of insulin; Z79.4 - senior living (current) use of insulin; Z79.4 - senior living (current) use of insulin; Z79.4 - senior living (current ) use of insulin (7) Essential hypertension Current Visit: Yes Status: Chronic Assessment and plan: Continue home medications. Blood pressure acceptable. (8) Bipolar disorder Current Visit: Yes Status: Chronic Assessment and plan: Resume home medications. Qualifiers: Active/Remission status: remission status unspecified Qualified Code(s): F31.9 - Bipolar disorder, unspecified (9) Hyperkalemia Current Visit: Yes Status: Acute Assessment and plan: Give dose of Kayexalate. Recheck with BMP tomorrow. - Time Spent With Patient Total time spent is greater than 50% in coordination of care (as documented) at patient's floor/unit and/or counseling patient: Greater than 35 minutes - Subjective Interval history: Patient is lying on her right side. She reports that she is non-ambulatory. Reports SOB has improved but does reports subjective fevers, chills, nausea, but no vomiting. She is a heavy smoker. Completed Levaquin 10 day course and extended course of prednisone due to recent COPD exacerbation. Admits to wheezing, dry cough, exertional dyspnea. Poorly controlled diabetes. - Constitutional Vitals: Temp Pulse Resp BP Pulse Ox 97.9 F 80 19 134/78 98 10/31/17 06:47 10/31/17 11:30 10/31/17 11:30 10/31/17 11:30 10/31/17 11:30 General appearance: Present: A&O X 3, morbidly obese, answers questions appropriately - Head Head exam: Present: atraumatic, normocephalic - Eye Eye exam: Present: PERRL, conjuntiva pink, sclera anicteric Pupils: Present: PERRL - Neck Neck exam general surgery: Present: supple, trachea midline. Absent: lymphadenopathy - Respiratory Respiratory exam: Present: decreased breath sounds, wheezes. Absent: accessory muscle use, rales, rhonchi - Cardiovascular Cardiovascular exam: Present: distant heart sounds, +S1, +S2. Absent: diastolic murmur, gallop, rubs, systolic murmur - GI/Abdominal GI/Abdominal exam: Present: hypoactive bowel sounds, soft, no peritoneal signs. Absent: distended, tenderness - Extremities Exam Extremities exam: Present: warm, radial pulses palpable and symmetrical. Absent : calf tenderness, cyanotic, pedal edema - Neurological Exam Neurological exam: Present: CN II-XII intact, oriented X3, no focal deficits. Absent: pronater drift, facial droop, speech deficit - Skin Skin exam: Present: dry, intact Internal Medicine: Result - Labs CBC & Chem 7: 10/31/17 05:45 10/31/17 05:45 Labs: Short CBC 10/31/17 Range/Units 05:45 WBC 17.1 H (4.3-11.1) K/mcL Hgb 15.7 H (11.5-15.4) g/dL Hct 46.6 H (35.3-44.9) % Plt Count 286 (140-400) K/mcL Neutrophils # 15.5 H (1.6-8.9) K/mcL BMP 10/31/17 05:45 Sodium 132 L Potassium 5.2 H Chloride 95 L Carbon Dioxide 27 BUN 16 Creatinine 0.71 Glucose 416 H Calcium 9.3 - ABG Interpretation ABG results: PT/INR, D-dimer D-Dimer 331 ng/mLFEU (0-500) 10/30/17 16:07 Consult Discharge Plan - Plan Referrals: Jairon Del Cid MD [Primary Care Provider] - <Duane Daley - Last Filed: 10/31/17 14:34> Date of Encounter: 10/31/17 - Assessment and plan (1) Morbid obesity with BMI of 50.0-59.9, adult Current Visit: Yes Status: Chronic (2) Tobacco abuse disorder Current Visit: Yes Status: Chronic (3) MARILEE (obstructive sleep apnea) Current Visit: Yes Status: Chronic (4) Acute exacerbation of chronic obstructive airways disease Current Visit: Yes Status: Acute (5) Diabetes mellitus Current Visit: Yes Status: Chronic Qualifiers: Diabetes mellitus type: type 2 Diabetes mellitus intermodal truck driver insulin use: with fpc use Diabetes mellitus complication status: with hyperglycemia Qualified Code(s): E11.65 - Type 2 diabetes mellitus with hyperglycemia; Z79.4 - senior living (current) use of insulin; Z79.4 - terminal operations manager (current) use of insulin; Z79.4 - terminal operations manager (current) use of insulin; Z79.4 - terminal operations manager (current ) use of insulin (6) Essential hypertension Current Visit: Yes Status: Chronic (7) Bipolar disorder Current Visit: Yes Status: Chronic Qualifiers: Active/Remission status: remission status unspecified Qualified Code(s): F31.9 - Bipolar disorder, unspecified (8) Chronic respiratory failure Current Visit: Yes Status: Chronic Qualifiers: Respiratory failure complication: hypoxia Qualified Code(s): J96.11 - Chronic respiratory failure with hypoxia (9) Hyperkalemia Current Visit: Yes Status: Acute - Time Spent With Patient Total time spent is greater than 50% in coordination of care (as documented) at patient's floor/unit and/or counseling patient: - Constitutional Vitals: Temp Pulse Resp BP Pulse Ox 97.9 F 80 19 134/78 98 10/31/17 06:47 10/31/17 11:30 10/31/17 11:30 10/31/17 11:30 10/31/17 11:30 Internal Medicine: Result - Labs CBC & Chem 7: 10/31/17 05:45 10/31/17 05:45 Labs: Short CBC 10/31/17 Range/Units 05:45 WBC 17.1 H (4.3-11.1) K/mcL Hgb 15.7 H (11.5-15.4) g/dL Hct 46.6 H (35.3-44.9) % Plt Count 286 (140-400) K/mcL Neutrophils # 15.5 H (1.6-8.9) K/mcL BMP 10/31/17 05:45 Sodium 132 L Potassium 5.2 H Chloride 95 L Carbon Dioxide 27 BUN 16 Creatinine 0.71 Glucose 416 H Calcium 9.3 - ABG Interpretation ABG results: PT/INR, D-dimer D-Dimer 331 ng/mLFEU (0-500) 10/30/17 16:07 - Attending Attestation I saw at the bedside and examined this patient on 10/31/17 and my medical decision -making was reviewed with the Resident Physician. I agree with the documented findings, disposition and treatment plan as described except to the extent set forth below. Morbid Obesity with chronic resp failure, heavy tobacco use, multiple psych issuesm MARILEE, GERD, failed O-P therapy for PNA Repeat lactate a.m Continue current management, as in the resident physician's documentation
[2017-10-31] MEDS ORDERED: Levofloxacin 750 MG/150 ML 750 MG/150 ML BAG IVPB SCH (18:00)
[2017-11-01 05:11] LABS: Basophils % 0.2 %; Hemoglobin 15.3 g/dL (11.5-15.4); Immature Granulocytes % 0.9 % (0-4); Lymphocytes # 2.3 K/mcL (0.6-4.6); Mean Corpuscular HGB Conc 33.3 g/dL (31.6-35.5); Mean Corpuscular Hemoglobin 29.5 pg (28.0-33.3); Mean Corpuscular Volume 88.6 fL (83.0-100.0); Monocytes % 5.6 %; Neutrophils # 13.9 K/mcL (1.6-8.9); Platelet Count 282 K/mcL (140-400); Red Blood Count 5.19 M/mcL (3.82-4.97); Red Cell Distribution Width 13.7 % (11.5-14.5); Segmented Neutrophils % 80.3 %
[2017-11-01 05:28] LABS: BUN/Creatinine Ratio 33 (6-26); Blood Urea Nitrogen 23 mg/dL (6-20); Calcium 9.1 mg/dL (8.6-10.3); Carbon Dioxide 29 mEq/L (23-29); Chloride 95 mEq/L (98-107); Glucose 394 mg/dL (70-105); Osmolality,Calculated 294 (280-300); Potassium 4.2 mEq/L (3.5-5.1); Sodium 132 mEq/L (136-145); eGFR For African Americans > 60 (> 60); eGFR For Non-African Americans > 60 (> 60)
[2017-11-01] MEDS: MethylPREDNISolone 40 MG/ML VIAL IVP SCH (05:38)
[2017-11-01] MEDS: cefTRIAXone 2,000 MG in Water for inj. (sterile) 20 ML 20 ML IVPB SCH (05:38)
[2017-11-01] MEDS: *HR* Enoxaparin 40 MG/0.4 ML SYRINGE SQ SCH (05:39)
[2017-11-01] MEDS: Doxycycline 100 MG in 0.9 % Sodium Chloride Mini Bag 100 ML IVPB SCH ×2 (05:40→17:19)
[2017-11-01] MEDS: Ipratropium/Albuterol Neb 3 ML IH PRN ×2 (07:37→19:43)
[2017-11-01] MEDS: Loratadine 10 MG TABLET PO SCH (09:15)
[2017-11-01] MEDS: Magnesium Oxide 400 MG TABLET PO SCH (09:15)
[2017-11-01] MEDS: Pregabalin 50 MG CAPSULE PO SCH ×2 (09:15→23:17)
[2017-11-01] MEDS: Metoprolol XL (24 HR) Succ 50 MG TAB.ER.24H PO SCH (09:15)
[2017-11-01] MEDS: Nicotine 21 MG PATCH.TD24 TD SCH (09:16)
[2017-11-01] MEDS: Insulin LISPRO 300 UNITS/3 ML VIAL SQ SCH ×4 (09:16→21:48)
[2017-11-01] MEDS: Insulin DETEMIR 100 UNIT/ML X5UNITS SQ SCH ×2 (09:23→21:48)
[2017-11-01] MEDS: *HR* OxyCODONE Immed Rel 5 MG TABLET PO PRN ×3 (09:24→23:17)
[2017-11-01] MEDS: Budesonide/Formoterol 80/4.5 MDI IH SCH ×2 (09:38→19:43)
[2017-11-01] MEDS ORDERED: predniSONE 20 MG TABLET PO SCH (09:45)
--- NOTE | 2017-11-01 09:46 | Internal Med Progress Note ---
<Duane Daley T - Last Filed: 11/01/17 15:01> Date of Encounter: 11/01/17 - Assessment and plan (1) Morbid obesity with BMI of 50.0-59.9, adult Current Visit: Yes Status: Chronic (2) Tobacco abuse disorder Current Visit: Yes Status: Chronic (3) MARILEE (obstructive sleep apnea) Current Visit: Yes Status: Chronic (4) Acute exacerbation of chronic obstructive airways disease Current Visit: Yes Status: Acute (5) Diabetes mellitus Current Visit: Yes Status: Chronic Qualifiers: Diabetes mellitus type: type 2 Diabetes mellitus group home insulin use: with intermediate school teacher use Diabetes mellitus complication status: with hyperglycemia Qualified Code(s): E11.65 - Type 2 diabetes mellitus with hyperglycemia; Z79.4 - keno terminal operator (current) use of insulin; Z79.4 - senior care (current) use of insulin; Z79.4 - keno terminal operator (current) use of insulin; Z79.4 - keno terminal operator (current ) use of insulin (6) Essential hypertension Current Visit: Yes Status: Chronic (7) Bipolar disorder Current Visit: Yes Status: Chronic Qualifiers: Active/Remission status: remission status unspecified Qualified Code(s): F31.9 - Bipolar disorder, unspecified (8) Chronic respiratory failure Current Visit: Yes Status: Chronic Qualifiers: Respiratory failure complication: hypoxia Qualified Code(s): J96.11 - Chronic respiratory failure with hypoxia (9) Hyperkalemia Current Visit: Yes Status: Acute - Time Spent With Patient Total time spent is greater than 50% in coordination of care (as documented) at patient's floor/unit and/or counseling patient: - Constitutional Vitals: Temp Pulse Resp BP Pulse Ox 98.3 F 66 17 140/77 95 11/01/17 04:00 11/01/17 07:00 11/01/17 09:38 11/01/17 09:38 11/01/17 09:38 Internal Medicine: Result - Labs CBC & Chem 7: 11/01/17 04:50 11/01/17 04:50 Labs: Short CBC 11/01/17 Range/Units 04:50 WBC 17.3 H (4.3-11.1) K/mcL Hgb 15.3 (11.5-15.4) g/dL Hct 46.0 H (35.3-44.9) % Plt Count 282 (140-400) K/mcL Neutrophils # 13.9 H (1.6-8.9) K/mcL BMP 11/01/17 04:50 Sodium 132 L Potassium 4.2 Chloride 95 L Carbon Dioxide 29 BUN 23 H Creatinine 0.69 Glucose 394 H Calcium 9.1 - ABG Interpretation ABG results: PT/INR, D-dimer D-Dimer 331 ng/mLFEU (0-500) 10/30/17 16:07 - Impressions Impressions Chest X-Ray 10/31/17 10:34 IMPRESSION: No acute process. D/ / Kenrick Vang MD / Kenrick Vang MD Interpreting Provider: Kenrick Vang MD Consult Discharge Plan - Plan Referrals: Jairon Del Cid MD [Primary Care Provider] - - Attending Attestation I examined this patient 11/01, and my medical decision-making was reviewed with the Resident Physician. I agree with the documented findings, disposition and treatment plan as described except to the extent set forth below. Bilateral PNA (failed O-P therapy)COPDE, Uncontrolled DM, Morbid Obesity, MARILEE, GERD Continue current management, switch steroids to po, and qualify for O2 ( ambulatory) Rest of details as in the resident physician's documentation <NoemíArmando - Last Filed: 11/01/17 15:30> Date of Encounter: 11/01/17 Time of Encounter: 10:00 - Assessment and plan (1) Acute exacerbation of chronic obstructive airways disease Current Visit: Yes Status: Acute Assessment and plan: SOB improved. Continue bronchodilators nebulization, supplemental oxygen. Switch to PO steroids. Patient is an active smoker. repeat CXR unremarkable. Continue with IV Rocephin and Doxycycline day #2 Continue Duoneb, prednisone CPAP as needed. Cough suppressant as needed. (2) Chronic respiratory failure Current Visit: Yes Status: Chronic Assessment and plan: On nocturnal home oxygen due to COPD. Qualifiers: Respiratory failure complication: hypoxia Qualified Code(s): J96.11 - Chronic respiratory failure with hypoxia (3) Tobacco abuse disorder Current Visit: Yes Status: Chronic Assessment and plan: Smoking cessation is imperative. Nicotine transdermal patch. (4) Morbid obesity with BMI of 50.0-59.9, adult Current Visit: Yes Status: Chronic (5) MARILEE (obstructive sleep apnea) Current Visit: Yes Status: Chronic Assessment and plan: Continue nocturnal CPAP. (6) Diabetes mellitus Current Visit: Yes Status: Chronic Assessment and plan: Blood sugars noted to be elevated, steroid-induced hyperglycemia. Start Accu- Chek blood glucose monitoring with basal bolus insulin regimen. Continue SSI. Diabetic diet. Qualifiers: Diabetes mellitus type: type 2 Diabetes mellitus intermediate school teacher insulin use: with intermediate school teacher use Diabetes mellitus complication status: with hyperglycemia Qualified Code(s): E11.65 - Type 2 diabetes mellitus with hyperglycemia; Z79.4 - senior care (current) use of insulin; Z79.4 - senior care (current) use of insulin; Z79.4 - senior care (current) use of insulin; Z79.4 - senior care (current ) use of insulin (7) Essential hypertension Current Visit: Yes Status: Chronic (8) Bipolar disorder Current Visit: Yes Status: Chronic Qualifiers: Active/Remission status: remission status unspecified Qualified Code(s): F31.9 - Bipolar disorder, unspecified (9) Hyperkalemia Current Visit: Yes Status: Acute - Time Spent With Patient Total time spent is greater than 50% in coordination of care (as documented) at patient's floor/unit and/or counseling patient: - Subjective Interval history: Patient is lying on her left side. Reports improvement of SOB. Tolerated BIPAP last night. No difficulty voiding. Tolerating PO intake. Non-ambulatory. +BM. denies f/c/n/v. No acute complaints. - Constitutional Vitals: Temp Pulse Resp BP Pulse Ox 98.3 F 66 17 140/77 95 11/01/17 04:00 11/01/17 07:00 11/01/17 09:38 11/01/17 09:38 11/01/17 09:38 General appearance: Present: A&O X 3, morbidly obese, answers questions appropriately - Head Head exam: Present: atraumatic, normocephalic - Eye Eye exam: Present: normal appearance, conjuntiva pink, sclera anicteric - Neck Neck exam general surgery: Present: supple, trachea midline. Absent: lymphadenopathy - Respiratory Respiratory exam: Present: CTAB, wheezes. Absent: accessory muscle use, rales, rhonchi - Cardiovascular Cardiovascular exam: Present: distant heart sounds, +S1, +S2. Absent: diastolic murmur, gallop, rubs, systolic murmur - GI/Abdominal GI/Abdominal exam: Present: normal bowel sounds, soft, no peritoneal signs. Absent: distended, tenderness - Extremities Exam Extremities exam: Present: warm, radial pulses palpable and symmetrical. Absent : calf tenderness, cyanotic, pedal edema - Neurological Exam Neurological exam: Present: alert, oriented X3, no focal deficits. Absent: pronater drift, facial droop, speech deficit - Skin Skin exam: Present: dry, intact Internal Medicine: Result - Labs CBC & Chem 7: 11/01/17 04:50 11/01/17 04:50 Labs: Short CBC 11/01/17 Range/Units 04:50 WBC 17.3 H (4.3-11.1) K/mcL Hgb 15.3 (11.5-15.4) g/dL Hct 46.0 H (35.3-44.9) % Plt Count 282 (140-400) K/mcL Neutrophils # 13.9 H (1.6-8.9) K/mcL BMP 11/01/17 04:50 Sodium 132 L Potassium 4.2 Chloride 95 L Carbon Dioxide 29 BUN 23 H Creatinine 0.69 Glucose 394 H Calcium 9.1 - ABG Interpretation ABG results: PT/INR, D-dimer D-Dimer 331 ng/mLFEU (0-500) 10/30/17 16:07 - Impressions Impressions Chest X-Ray 10/31/17 10:34
[2017-11-01] MEDS ORDERED: predniSONE 20 MG TABLET PO ONE (12:53)
[2017-11-01] MEDS: FLUoxetine 20 MG CAPSULE PO SCH (21:39)
[2017-11-02 02:01] LABS: BUN/Creatinine Ratio 28 (6-26); Blood Urea Nitrogen 22 mg/dL (6-20); Calcium 9.5 mg/dL (8.6-10.3); Carbon Dioxide 28 mEq/L (23-29); Chloride 91 mEq/L (98-107); Glucose 625 mg/dL (70-105); Osmolality,Calculated 299 (280-300); Potassium 4.4 mEq/L (3.5-5.1); Sodium 128 mEq/L (136-145); eGFR For African Americans > 60 (> 60); eGFR For Non-African Americans > 60 (> 60)
[2017-11-02] MEDS ORDERED: Insulin LISPRO 300 UNITS/3 ML VIAL SQ ONE (02:15)
[2017-11-02] MEDS: cefTRIAXone 2,000 MG in Water for inj. (sterile) 20 ML 20 ML IVPB SCH (02:34)
[2017-11-02 02:52] LABS: Hematocrit 48.9 % (35.3-44.9); Hemoglobin 16.1 g/dL (11.5-15.4); Mean Corpuscular Hemoglobin 29.1 pg (28.0-33.3); Mean Corpuscular Volume 88.4 fL (83.0-100.0); Red Blood Count 5.53 M/mcL (3.82-4.97)
[2017-11-02 02:53] LABS: Lymphocytes # 1.1 K/mcL (0.6-4.6); Lymphocytes % 7.9 %; Mean Corpuscular HGB Conc 32.9 g/dL (31.6-35.5); Mean Platelet Volume 11.3 fL (9.4-12.4); Monocytes # 0.6 K/mcL (0.0-1.3); Monocytes % 4.7 %; Neutrophils # 11.7 K/mcL (1.6-8.9); Platelet Count 289 K/mcL (140-400); Red Cell Distribution Width 13.4 % (11.5-14.5); Segmented Neutrophils % 86.2 %
[2017-11-02 02:54] LABS: Basophils % 0.2 %
[2017-11-02] MEDS: *HR* Enoxaparin 40 MG/0.4 ML SYRINGE SQ SCH (06:38)
[2017-11-02] MEDS: Doxycycline 100 MG in 0.9 % Sodium Chloride Mini Bag 100 ML IVPB SCH (06:39)
[2017-11-02 07:02] VITALS: BP 150/97
[2017-11-02] MEDS: Insulin LISPRO 300 UNITS/3 ML VIAL SQ SCH ×6 (07:57→12:04)
[2017-11-02] MEDS: Metoprolol XL (24 HR) Succ 50 MG TAB.ER.24H PO SCH (08:00)
[2017-11-02] MEDS: Pregabalin 50 MG CAPSULE PO SCH (08:00)
[2017-11-02] MEDS: Loratadine 10 MG TABLET PO SCH (08:01)
[2017-11-02] MEDS: Magnesium Oxide 400 MG TABLET PO SCH (08:01)
[2017-11-02] MEDS: Nicotine 21 MG PATCH.TD24 TD SCH (08:02)
[2017-11-02] MEDS: Insulin DETEMIR 100 UNIT/ML X5UNITS SQ SCH (08:06)
[2017-11-02] MEDS ORDERED: predniSONE 20 MG TABLET PO SCH (09:00)
[2017-11-02] MEDS: Ipratropium/Albuterol Neb 3 ML IH PRN (10:54)
[2017-11-02] MEDS: Budesonide/Formoterol 80/4.5 MDI IH SCH (10:54)
--- NOTE | 2017-11-02 11:37 | Internal Med Progress Note ---
Date of Encounter: 11/02/17 Time of Encounter: 11:36 - Assessment and plan (1) Acute exacerbation of chronic obstructive airways disease Current Visit: Yes Status: Acute Assessment and plan: AECOPD vs atypical pneumonia. Patient has completed Rocephin and doxycyline x 3 days Continue with duonebs and prednisone. CPAP as needed in evenings. Patient still needing supplemental oxygen to sat > 93%, will likely need on discharge. Recommend additional day of hospitalization, but patient has request to be discharged as long as medications and oxygen is set up. Discharge planning: Omnicef, doxycycline, prolonged steroid taper, and oxygen. (2) Chronic respiratory failure Current Visit: Yes Status: Chronic Assessment and plan: Patient has a history of chronic respiratory failure secondary to COPD vs Obesity vs MARILEE on chronic home oxygen in evenings. Qualifiers: Respiratory failure complication: hypoxia Qualified Code(s): J96.11 - Chronic respiratory failure with hypoxia (3) Hyperkalemia Current Visit: Yes Status: Resolved Assessment and plan: Resolved. (4) Diabetes mellitus Current Visit: Yes Status: Chronic Assessment and plan: Blood sugars still highly elevated despite high dose sliding scale and high dose meal time and basal insulin. May be related to steroids, but unlikely to this extent. Continue monitoring and supplement with insulin as needed. Diabetic diet Qualifiers: Diabetes mellitus type: type 2 Diabetes mellitus clinical services assistant insulin use: with fdc use Diabetes mellitus complication status: with hyperglycemia Qualified Code(s): E11.65 - Type 2 diabetes mellitus with hyperglycemia; Z79.4 - half-way (current) use of insulin; Z79.4 - loan supervisor (current) use of insulin; Z79.4 - half-way (current) use of insulin; Z79.4 - half-way (current ) use of insulin (5) Essential hypertension Current Visit: Yes Status: Chronic Assessment and plan: Bp elevated at 150/97. Continue with home medications for chronic disease management. Continue monitoring while inpatient. (6) MARILEE (obstructive sleep apnea) Current Visit: Yes Status: Chronic Assessment and plan: Continue CPAP in evenings with oxygen. (7) Bipolar disorder Current Visit: Yes Status: Chronic Assessment and plan: Continue home medications for chronic disease management. Qualifiers: Active/Remission status: remission status unspecified Qualified Code(s): F31.9 - Bipolar disorder, unspecified (8) Tobacco abuse disorder Current Visit: Yes Status: Chronic Assessment and plan: Nicotine patch ordered, patient was counseled > 5 minutes regarding smoking cessation, but patient appears to be indifferent at conversation. (9) Morbid obesity with BMI of 50.0-59.9, adult Current Visit: Yes Status: Chronic - Time Spent With Patient Total time spent is greater than 50% in coordination of care (as documented) at patient's floor/unit and/or counseling patient: - Subjective Interval history: Patient reports doing well, still needing supplemental oxygen at times especially with any exertions. Patient's glucose has been elevated significantly around 600s and patient reports it was well controlled prior to being hospitalized. Patient does feel short of breath and coughing at times. Denies fevers, chills, sweats, nausea, vomiting, headaches, chest pain, abdominal pain, changes in bowels or bladder, weakness, loss of sensation, or rash. - Constitutional Vitals: Temp Pulse Resp BP Pulse Ox 98 F 79 18 150/97 96 11/02/17 06:58 11/02/17 06:58 11/02/17 06:58 11/02/17 10:56 11/02/17 11:00 General appearance: Present: A&O X 3, morbidly obese, no acute distress, answers questions appropriately - Head Head exam: Present: atraumatic, normal inspection, normocephalic - Eye Eye exam: Present: EOMI, normal appearance - Neck Neck exam general surgery: Present: full ROM - Respiratory Respiratory exam: Present: rhonchi, wheezes. Absent: rales, respiratory distress - Cardiovascular Cardiovascular exam: Present: RRR, +S1, +S2 - Extremities Exam Extremities exam: Present: full ROM, normal inspection, warm, radial pulses palpable and symmetrical. Absent: pedal edema - Skin Skin exam: Present: dry, intact, normal color, warm Internal Medicine: Result - Labs CBC & Chem 7: 11/02/17 01:03 11/02/17 01:03 Labs: Short CBC 11/02/17 Range/Units 01:03 WBC 13.6 H (4.3-11.1) K/mcL Hgb 16.1 H (11.5-15.4) g/dL Hct 48.9 H (35.3-44.9) % Plt Count 289 (140-400) K/mcL Neutrophils # 11.7 H (1.6-8.9) K/mcL BMP 11/01/17 11/02/17 21:31 01:03 Sodium 128 L Potassium 4.4 Chloride 91 L Carbon Dioxide 28 BUN 22 H Creatinine 0.79 Glucose 625 H* 625 H* Calcium 9.5 - ABG Interpretation ABG results: PT/INR, D-dimer D-Dimer 331 ng/mLFEU (0-500) 10/30/17 16:07 Consult Discharge Plan - Plan Referrals: Jairon Del Cid MD [Primary Care Provider] - Prescriptions: Cefdinir [Omnicef] 300 mg PO BID #10 capsule Doxycycline Hyclate 100 mg PO BID #10 capsule PredniSONE [Deltasone] 10 mg PO DAILY 28 Days #70 tablet
[2017-11-02] MEDS: *HR* OxyCODONE Immed Rel 5 MG TABLET PO PRN (12:01)
--- NOTE | 2017-11-02 14:54 | Physician Discharge Referral ---
Home Health/Hosp Referral Info Transfer to: Home Health Attending Provider: Dr. Daley Provider in Charge Post Discharge: PCP - Diagnosis (1) Chronic respiratory failure Priority: Secondary Status: Chronic (2) Acute exacerbation of chronic obstructive airways disease Priority: Primary Status: Acute (3) Hyperkalemia Priority: Secondary Status: Acute (4) Diabetes mellitus Priority: Secondary Status: Chronic (5) Essential hypertension Priority: Secondary Status: Chronic (6) MARILEE (obstructive sleep apnea) Priority: Secondary Status: Chronic (7) Bipolar disorder Priority: Secondary Status: Chronic (8) Tobacco abuse disorder Priority: Secondary Status: Chronic (9) Morbid obesity with BMI of 50.0-59.9, adult Priority: Secondary Status: Chronic - Respiratory Orders Oxygen / L per min (2L) Smoking Cessation: Smoking cessation has been advised. For more information, call the [place] Tobacco Quit Line at 1-020-XWUS-NOW. - Diet/Nutrition Diet/Nutrition Orders: No Added Salt (KAMILAH), No Concentrated Sweets - Activity Activity Orders: Up ad brian - Services Needed Following services are medically necessary services: Nursing, Home Health Aide, Physical Therapy, Occupational Therapy, Med Social Work, Home Infusion, Speech Therapy - Transfer Medications Prescriptions: Doxycycline Hyclate 100 mg PO BID #10 capsule Home Medications: Docusate Sodium [Colace] 200 mg PO BID 05/17/15 [History] Omeprazole [PriLOSEC] 20 mg PO QAM 05/17/15 [History] Simethicone [Gas-X] 250 mg PO BID 05/17/15 [History] Cetirizine HCl [Zyrtec] 10 mg PO DAILY 04/12/17 [History] Cholecalciferol (Vitamin D3) [Vitamin D3] 50,000 unit PO FR 04/12/17 [History] Montelukast [Singulair] 10 mg PO DAILY 04/12/17 [History] Albuterol Sulfate [Ventolin Hfa] 2 puff IH Q4H PRN 07/15/17 [History] Amitriptyline [Elavil] 100 mg PO HS 07/15/17 [History] Dulaglutide [Trulicity] 0.75 mg IJ MO 07/15/17 [History] Fluticasone Propionate Nasal [Flonase] 1 spr NS BID PRN 07/15/17 [History] Insulin Degludec [Tresiba Flextouch U-100] 126 unit SQ QAM 07/15/17 [History] Insulin LISPRO [HumaLOG] 45 units SQ TIDWM PRN 07/15/17 [History] Ipratropium/Albuterol Neb [Duoneb] 3 ml IH Q6HR 07/15/17 [History] Ketoconazole 2% CRM [Nizoral Cream] 1 appl TP BID 07/15/17 [History] Lisinopril [Zestril] 5 mg PO DAILY 07/15/17 [History] Lurasidone HCl [Latuda] 80 mg PO DAILY 07/15/17 [History] Meloxicam 15 mg PO DAILY 07/15/17 [History] Mv-Mn/FA/Vit K/Lycop/Lut/Coq10 [Daily Multivitamin Capsule] 1 tab PO DAILY 07/15 [History] Solifenacin Succinate [Vesicare] 10 mg PO DAILY 07/15/17 [History] Ascorbate Calcium [Vitamin C] 500 mg PO BID 09/14/17 [History] Atorvastatin [Lipitor] 20 mg PO HS 09/14/17 [History] Cyanocobalamin (Vitamin B-12) [Vitamin B12] 1,000 mcg PO DAILY 09/14/17 [History ] FLUoxetine HCl [Prozac] 60 mg PO HS 09/14/17 [History] Magnesium 250 mg PO DAILY 09/14/17 [History] Quetiapine Fumarate [Seroquel] 50 mg PO HS 09/14/17 [History] Buspirone HCl [Buspar] 7.5 mg PO BID 10/30/17 [History] Cefdinir [Omnicef] 300 mg PO BID 10/30/17 [History] Fluticasone/Salmeterol [Advair 250-50 Diskus] 1 puff IH BID 10/30/17 [History] Metformin HCl [Metformin HCl ER] 500 mg PO BID 10/30/17 [History] Metoprolol Succinate [Toprol Xl] 50 mg PO DAILY 10/30/17 [History] Oxycodone HCl [Oxaydo] 5 mg PO TID 10/30/17 [History] Pregabalin [Lyrica] 100 mg PO BID 10/30/17 [History] Tizanidine HCl 4 mg PO TID 10/30/17 [History] Cefdinir [Omnicef] 300 mg PO BID #10 capsule 11/02/17 [Rx] Doxycycline Hyclate 100 mg PO BID #10 capsule 11/02/17 [Rx] Allergies/Adverse Reactions: 3 Allergy/AdvReac Type Severity Reaction Status Date / Time Oxycodone [From OxyContin] Allergy See Verified 10/30/17 16:01 Comments Certification: Further, I certify that my clinical findings support that this patient is homebound (i.e. absences from home require considerable and taxing effort and are for medical reasons or christian services or infrequently or short duration when for other reasons) because: Homebound Reason: Patient requires assistance of a person or device to safely leave home, Leaving home requires considerable and taxing effort due to condition Attestation: My signature below is to certify that this patient is under my care and that I, or nurse practitioner, or a physician's help desk assistant working with me, has a face-to -face encounter with this patient.
--- NOTE | 2017-11-02 14:59 | Discharge Summary ---
<Saturnino Stack - Last Filed: 11/02/17 15:41> - NOTES TO OUTPATIENT PROVIDER Notes to Outpatient Provider: Patient presented to the ED with complaint of shortness of breath, was admitted with diagnosis of AECOPD and bilateral pnuemonia. Discharged with oxygen continuous 2L, doxycycline x 5 days, omnicef x 5 days, and prolonged steroid taper. Date of Encounter: 11/02/17 Time of Encounter: 14:57 - Discharge Diagnosis (1) Acute exacerbation of chronic obstructive airways disease Priority: Primary Status: Acute (2) Chronic respiratory failure Priority: Secondary Status: Chronic Assessment and Plan: Patient has a history of chronic respiratory failure secondary to COPD vs Obesity vs MARILEE on chronic home oxygen in evenings. 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: with watcher [employer] goods use Diabetes mellitus complication status: with hyperglycemia Qualified Code(s): E11.65 - Type 2 diabetes mellitus with hyperglycemia; Z79.4 - superintendent terminal (current) use of insulin; Z79.4 - superintendent terminal (current) use of insulin; Z79.4 - longterm (current) use of insulin; Z79.4 - longterm (current ) use of insulin (4) Essential hypertension Priority: Secondary Status: Chronic (5) MARILEE (obstructive sleep apnea) Priority: Secondary Status: Chronic (6) Bipolar disorder Priority: Secondary Status: Chronic Qualifiers: Active/Remission status: remission status unspecified Qualified Code(s): F31.9 - Bipolar disorder, unspecified (7) Tobacco abuse disorder Priority: Secondary Status: Chronic (8) Morbid obesity with BMI of 50.0-59.9, adult Priority: Secondary Status: Chronic (9) Hyperkalemia Priority: Secondary Status: Resolved Hospital course: Ms. Tapia is a 37 year old female with history of COPD, morbid obesity, hx of dvt , dm, htn, tobacco abuse who presented to the ED with complaint of dyspnea on exertion and worsening cough that failed to improve while on levaquin and steroids. Patient was admitted for acute exacerbation of COPD and chronic respiratory failure. On CXR it was noted to possibly have bilateral upper lobe changes consistent with possible infection and was therefore started on Rocephin and doxycycline in addition to steroids. Patient on day 1 required supplemental oxygen. Patient received 3 days of antibiotics and steroids and requested to be discharged despite needing continuous oxygen throughout the day. The patient showed improvement in shortness of breath but still desatted at times without oxygen with any exertion. The patient was discharged with home oxygen, prolonged prednisone taper, Omnicef, and Doxycycline. Patient was also counseled on smoking cessation prior to discharge. Discharge discussed with: patient, family Time spent discussing smoking cessation with patient: 3 to 10 minutes - Time Spent with Patient Total time spent providing and/or coordinating discharge services: - Discharge Medications Prescriptions: Cefdinir [Omnicef] 300 mg PO BID #10 capsule Doxycycline Hyclate 100 mg PO BID #10 capsule PredniSONE [Deltasone] 10 mg PO DAILY 28 Days #70 tablet Home Medications: Docusate Sodium [Colace] 200 mg PO BID 05/17/15 [History] Omeprazole [PriLOSEC] 20 mg PO QAM 05/17/15 [History] Simethicone [Gas-X] 250 mg PO BID 05/17/15 [History] Cetirizine HCl [Zyrtec] 10 mg PO DAILY 04/12/17 [History] Cholecalciferol (Vitamin D3) [Vitamin D3] 50,000 unit PO FR 04/12/17 [History] Montelukast [Singulair] 10 mg PO DAILY 04/12/17 [History] Albuterol Sulfate [Ventolin Hfa] 2 puff IH Q4H PRN 07/15/17 [History] Amitriptyline [Elavil] 100 mg PO HS 07/15/17 [History] Dulaglutide [Trulicity] 0.75 mg IJ MO 07/15/17 [History] Fluticasone Propionate Nasal [Flonase] 1 spr NS BID PRN 07/15/17 [History] Insulin Degludec [Tresiba Flextouch U-100] 126 unit SQ QAM 07/15/17 [History] Insulin LISPRO [HumaLOG] 45 units SQ TIDWM PRN 07/15/17 [History] Ipratropium/Albuterol Neb [Duoneb] 3 ml IH Q6HR 07/15/17 [History] Ketoconazole 2% CRM [Nizoral Cream] 1 appl TP BID 07/15/17 [History] Lisinopril [Zestril] 5 mg PO DAILY 07/15/17 [History] Lurasidone HCl [Latuda] 80 mg PO DAILY 07/15/17 [History] Meloxicam 15 mg PO DAILY 07/15/17 [History] Mv-Mn/FA/Vit K/Lycop/Lut/Coq10 [Daily Multivitamin Capsule] 1 tab PO DAILY 07/15 [History] Solifenacin Succinate [Vesicare] 10 mg PO DAILY 07/15/17 [History] Ascorbate Calcium [Vitamin C] 500 mg PO BID 09/14/17 [History] Atorvastatin [Lipitor] 20 mg PO HS 09/14/17 [History] Cyanocobalamin (Vitamin B-12) [Vitamin B12] 1,000 mcg PO DAILY 09/14/17 [History ] FLUoxetine HCl [Prozac] 60 mg PO HS 09/14/17 [History] Magnesium 250 mg PO DAILY 09/14/17 [History] Quetiapine Fumarate [Seroquel] 50 mg PO HS 09/14/17 [History] Buspirone HCl [Buspar] 7.5 mg PO BID 10/30/17 [History] Cefdinir [Omnicef] 300 mg PO BID 10/30/17 [History] Fluticasone/Salmeterol [Advair 250-50 Diskus] 1 puff IH BID 10/30/17 [History] Metformin HCl [Metformin HCl ER] 500 mg PO BID 10/30/17 [History] Metoprolol Succinate [Toprol Xl] 50 mg PO DAILY 10/30/17 [History] Oxycodone HCl [Oxaydo] 5 mg PO TID 10/30/17 [History] Pregabalin [Lyrica] 100 mg PO BID 10/30/17 [History] Tizanidine HCl 4 mg PO TID 10/30/17 [History] Cefdinir [Omnicef] 300 mg PO BID #10 capsule 11/02/17 [Rx] Doxycycline Hyclate 100 mg PO BID #10 capsule 11/02/17 [Rx] PredniSONE [Deltasone] 10 mg PO DAILY 28 Days #70 tablet 11/02/17 [Rx] Allergies/Adverse Reactions: 3 Allergy/AdvReac Type Severity Reaction Status Date / Time Oxycodone [From OxyContin] Allergy See Verified 10/30/17 16:01 Comments Date of admission: 10/30/17 20:17 Primary care physician: Jairon Del Cid MD Consults: 11/02/17 00:11 Consult to Nutrition [CONS] Routine Comment: Consulting Provider: NUTRITION Reason for Dietary Consult: Diet Education 11/02/17 11:38 Consult to Round Cutter Operator [CONS] Routine Reason for SW Consult: Requires home oxygen during day, has home oxygen at night already. [facility] Anticipated date of discharge: 11/02/17 - Constitutional Vitals: Temp Pulse Resp BP Pulse Ox 98 F 79 18 150/97 96 11/02/17 06:58 11/02/17 06:58 11/02/17 06:58 11/02/17 10:56 11/02/17 11:00 General appearance: Present: A&O X 3, morbidly obese, no acute distress, answers questions appropriately - Head Head exam: Present: atraumatic, normal inspection, normocephalic - Eye Eye exam: Present: EOMI, normal appearance - ENT ENT exam: Present: mucous membranes moist - Neck Neck exam general surgery: Present: full ROM - Respiratory Respiratory exam: Present: rhonchi, wheezes. Absent: rales, respiratory distress - Cardiovascular Cardiovascular exam: Present: RRR, +S1, +S2 - GI/Abdominal GI/Abdominal exam: Present: normal bowel sounds, soft. Absent: tenderness - Extremities Exam Extremities exam: Present: full ROM, normal inspection, warm, radial pulses palpable and symmetrical. Absent: pedal edema - Psychiatric Psychiatric exam: Present: normal affect, normal mood - Patient Status Disposition: Home, Self-Care Condition: Fair Functional capacity at discharge: independent ambulation Overall status at discharge: patient is progressing back to baseline - Discharge Instructions Instructions: Doxycycline (By mouth), Prednisone (By mouth), Cefdinir (By mouth ), Chronic Obstructive Pulmonary Disease (DC) Follow Up With: Jairon Del Cid MD [Primary Care Provider] - 11/06/17 1:30 pm Additional Instructions: Your Home oxygen is now continuous with portable tanks @ 2L/Min. [facility] They should be ready when you get there. - Diet and Activity Activity: resume usual activities as tolerated, wear oxygen at all times Diet: diabetic diet, low fat, low cholesterol, low salt diet <ParminderRamon dietzDuane T - Last Filed: 11/02/17 17:20> Date of Encounter: 11/02/17 - Discharge Diagnosis (1) Morbid obesity with BMI of 50.0-59.9, adult Status: Chronic (2) Tobacco abuse disorder Status: Chronic (3) MARILEE (obstructive sleep apnea) Status: Chronic (4) Acute exacerbation of chronic obstructive airways disease Status: Acute (5) Diabetes mellitus Status: Chronic Qualifiers: Diabetes mellitus type: type 2 Diabetes mellitus fci insulin use: with fci use Diabetes mellitus complication status: with hyperglycemia Qualified Code(s): E11.65 - Type 2 diabetes mellitus with hyperglycemia; Z79.4 - longterm (current) use of insulin; Z79.4 - longterm (current) use of insulin; Z79.4 - superintendent terminal (current) use of insulin; Z79.4 - superintendent terminal (current ) use of insulin (6) Essential hypertension Status: Chronic (7) Bipolar disorder Status: Chronic Qualifiers: Active/Remission status: remission status unspecified Qualified Code(s): F31.9 - Bipolar disorder, unspecified (8) Chronic respiratory failure Status: Chronic Qualifiers: Respiratory failure complication: hypoxia Qualified Code(s): J96.11 - Chronic respiratory failure with hypoxia (9) Hyperkalemia Status: Resolved Hospital course: Ms. Tapia is a 37 year old female - Time Spent with Patient Total time spent providing and/or coordinating discharge services: Date of admission: 10/30/17 20:17 Primary care physician: Jairno Del Cid MD Consults: 11/02/17 00:11 Consult to Nutrition [CONS] Routine Comment: Consulting Provider: NUTRITION Reason for Dietary Consult: Diet Education 11/02/17 11:38 Consult to Round Cutter Operator [CONS] Routine Reason for SW Consult: Requires home oxygen during day, has home oxygen at night already. - Constitutional Vitals: Temp Pulse Resp BP Pulse Ox 98 F 79 18 150/97 96 11/02/17 06:58 11/02/17 06:58 11/02/17 06:58 11/02/17 10:56 11/02/17 11:00 - Attending Attestation I examined this patient 11/01, and my medical decision-making was reviewed with the Resident Physician. I agree with the documented findings, disposition and treatment plan as described except to the extent set forth below. Bilateral PNA (failed O-P therapy)COPDE, Uncontrolled DM, Morbid Obesity, MARILEE, GERD FS uncontrolled due to steroids Patient qualified for home O2, FS uncontrolled due to steroids, improving Safe to discharge home on O2, doxy, omnicef, home med, steroids, smoking cessation encouraged, follow up with PCP, compliance with meds reinforced Rest of details as in the resident physician's documentation
[2017-11-02] MEDS ORDERED: Insulin LISPRO 300 UNITS/3 ML VIAL SQ SCH (21:00)
[2017-11-03] MEDS ORDERED: predniSONE 20 MG TABLET PO SCH (09:00)
--- NOTE | 2017-11-03 15:24 | Electrocardiograph Report ---
[place] [id number] Test Date: 2017-10-30 Pat Name: Luigi Tapia Department: 102 Room: 2N9 Gender: F Electronic Maintenance Supervisor: : [id number] Requested By: [id number] Order Number: [id number] Reading MD: Kenrick Schulte Measurements Intervals [place] Rate: 97 P: 61 [place]: 152 QRS: 70 QRSD: 86 T: 34 QT: 324 QTc: 379 Interpretive Statements SINUS RHYTHM LEFT ATRIAL ENLARGEMENT Electronically Signed On 11-03-2017 15:23:01 EDT by Kenrick Schulte
== END 2017-11-02 17:04 | disposition home or self-care (01) ==
LOC: EMEROO 15:54 → 2NENU 15:54 → SUATTDRO 23:38
PROVIDERS: ADMIT Internal Medicine; ATTEND Internal Medicine

== ENCOUNTER 2021-07-22 18:44 | Observation (INO) ==
[2021-07-22] MEDS ORDERED: Ipratropium/Albuterol Neb 3 ML IH ONE (19:41)
[2021-07-22 20:57] LABS: Influenza A PCR Negative (Negative); Influenza B PCR Negative (Negative); Resp. Syncytial Virus PCR Negative (Negative)
[2021-07-22 20:59] LABS: SARS-CoV-2 by PCR (In House) Negative (Negative)
[2021-07-22] MEDS ORDERED: Isovue-370 500 ML BOTTLE IVP ONE (21:03)
[2021-07-22 21:52] LABS: Basophils % 0.4 %; Eosinophils # 0.2 K/mcL (0.0-0.6); Eosinophils % 2.8 %; Hematocrit 36.7 % (35.3-44.9); Hemoglobin 11.1 g/dL (11.5-15.4); Immature Granulocytes % 0.4 % (0-4); Lymphocytes # 1.5 K/mcL (0.6-4.6); Lymphocytes % 18.8 %; Mean Corpuscular HGB Conc 30.2 g/dL (31.6-35.5); Mean Corpuscular Hemoglobin 24.7 pg (28.0-33.3); Mean Corpuscular Volume 81.7 fL (83.0-100.0); Monocytes # 0.7 K/mcL (0.0-1.3); Monocytes % 9.2 %; Neutrophils # 5.4 K/mcL (1.6-8.9); Platelet Count 244 K/mcL (140-400); Red Blood Count 4.49 M/mcL (3.82-4.97); Red Cell Distribution Width 16.5 % (11.5-14.5); Segmented Neutrophils % 68.4 %; White Blood Count 7.9 K/mcL (4.3-11.1)
[2021-07-22 22:16] LABS: Alanine Aminotransferase 18 Units/L (7-52); Albumin 3.7 g/dL (3.5-5.7); Albumin/Globulin Ratio 1.2 (1.1-2.2); Alkaline Phosphatase 79 Units/L (34-104); Aspartate Amino Transferase 17 Units/L (13-39); BUN/Creatinine Ratio 18 (6-26); Bilirubin,Total 0.3 mg/dL (0.3-1.0); Blood Urea Nitrogen 12 mg/dL (6-20); Calcium 8.7 mg/dL (8.6-10.3); Carbon Dioxide 29 mEq/L (23-29); Chloride 103 mEq/L (98-107); Globulin 3.1 g/dL (2.4-3.5); Glucose 181 mg/dL (70-105); Osmolality,Calculated 292 (280-300); Potassium 3.8 mEq/L (3.5-5.1); Sodium 139 mEq/L (136-145); Total Protein 6.8 g/dL (6.4-8.9); Troponin I < 0.03 ng/mL (< 0.04); eGFR For African Americans > 60 (> 60); eGFR For Non-African Americans > 60 (> 60)
[2021-07-23] MEDS ORDERED: Isovue-370 500 ML BOTTLE IVP ONE (01:31)
[2021-07-23] MEDS ORDERED: Azithromycin 500 MG in 0.9 % Sodium Chloride 250 ML IVPB ONE (03:35)
[2021-07-23] MEDS ORDERED: Melatonin 3 MG TABLET PO PRN (04:59)
[2021-07-23] MEDS ORDERED: Naloxone 0.4 MG/ML INJ IVP PRN (04:59)
[2021-07-23] MEDS ORDERED: Ondansetron 4 MG/2 ML VIAL IVP PRN (04:59)
[2021-07-23] MEDS ORDERED: D5% in Water 1,000 ML IVC PRN (06:50)
[2021-07-23] MEDS ORDERED: *HR* Dextrose 50 % in Water (Syg) 50 ML SYRINGE IVP PRN (06:50)
[2021-07-23] MEDS ORDERED: Dextrose Gel 15 GM/37.5 ML TUBE PO PRN ×2 (06:50)
[2021-07-23] MEDS: Insulin LISPRO 300 UNITS/3 ML VIAL SUBQ SCH ×4 (12:08→19:54)
[2021-07-23] MEDS: Acetaminophen 325 MG TABLET PO PRN (14:52)
[2021-07-23] MEDS ORDERED: Albuterol 2.5 MG/3 ML NEBULIZER IH PRN (14:56)
[2021-07-23] MEDS: tiZANidine 4 MG TABLET PO PRN (16:43)
[2021-07-23] MEDS: Pregabalin 50 MG CAPSULE PO SCH ×2 (16:43→19:54)
[2021-07-23] MEDS: LAMOTRIGINE 100 MG PO SCH (19:53)
[2021-07-23] MEDS: Mirtazapine 15 MG TABLET PO SCH (19:55)
[2021-07-23] MEDS: *HR* OxyCODONE Immed Rel 5 MG TABLET PO PRN (20:47)
[2021-07-24 01:27] LABS: Basophils % 0.4 %; Eosinophils # 0.2 K/mcL (0.0-0.6); Eosinophils % 3.4 %; Hematocrit 35.6 % (35.3-44.9); Hemoglobin 10.9 g/dL (11.5-15.4); Immature Granulocytes % 0.3 % (0-4); Lymphocytes # 2.2 K/mcL (0.6-4.6); Lymphocytes % 31.3 %; Mean Corpuscular HGB Conc 30.6 g/dL (31.6-35.5); Mean Corpuscular Volume 81.7 fL (83.0-100.0); Mean Platelet Volume 10.9 fL (9.4-12.4); Monocytes # 0.7 K/mcL (0.0-1.3); Monocytes % 10.4 %; Neutrophils # 3.9 K/mcL (1.6-8.9); Platelet Count 238 K/mcL (140-400); Red Blood Count 4.36 M/mcL (3.82-4.97); Red Cell Distribution Width 16.6 % (11.5-14.5); Segmented Neutrophils % 54.2 %; White Blood Count 7.1 K/mcL (4.3-11.1)
[2021-07-24 01:41] LABS: BUN/Creatinine Ratio 13 (6-26); Blood Urea Nitrogen 9 mg/dL (6-20); Calcium 9.1 mg/dL (8.6-10.3); Carbon Dioxide 27 mEq/L (23-29); Chloride 102 mEq/L (98-107); Glucose 159 mg/dL (70-105); Osmolality,Calculated 282 (280-300); Sodium 135 mEq/L (136-145); eGFR For African Americans > 60 (> 60); eGFR For Non-African Americans > 60 (> 60)
[2021-07-24] MEDS: Acetaminophen 325 MG TABLET PO PRN ×2 (02:22→21:04)
[2021-07-24] MEDS: tiZANidine 4 MG TABLET PO PRN ×2 (02:23→16:33)
[2021-07-24] MEDS: *HR* OxyCODONE Immed Rel 5 MG TABLET PO PRN ×3 (03:32→22:51)
[2021-07-24] MEDS: Metoprolol XL (24 HR) Succ 50 MG TAB.ER.24H PO SCH (07:56)
[2021-07-24] MEDS: Pregabalin 50 MG CAPSULE PO SCH ×3 (07:56→21:05)
[2021-07-24] MEDS: Cholecalciferol (D-3) 1,000 UNIT (25MCG) TABLET PO SCH (07:57)
[2021-07-24] MEDS: Furosemide 20 MG TABLET PO SCH (07:57)
[2021-07-24] MEDS: Loratadine 10 MG TABLET PO SCH (07:57)
[2021-07-24] MEDS: lisinopriL 5 MG TABLET PO SCH (07:57)
[2021-07-24] MEDS: LAMOTRIGINE 100 MG PO SCH ×2 (07:58→16:25)
[2021-07-24] MEDS: Ammonium Lactate 30 APPL/225 GM BOTTLE TP SCH (07:59)
[2021-07-24] MEDS: Insulin LISPRO 300 UNITS/3 ML VIAL SUBQ SCH ×4 (08:04→21:06)
[2021-07-24] MEDS: Mirtazapine 15 MG TABLET PO SCH (21:05)
[2021-07-25] MEDS: tiZANidine 4 MG TABLET PO PRN ×2 (00:22→07:58)
[2021-07-25] MEDS: Pregabalin 50 MG CAPSULE PO SCH ×2 (07:58→15:14)
[2021-07-25] MEDS: lisinopriL 5 MG TABLET PO SCH (07:58)
[2021-07-25] MEDS: Metoprolol XL (24 HR) Succ 50 MG TAB.ER.24H PO SCH (07:58)
[2021-07-25] MEDS: Cholecalciferol (D-3) 1,000 UNIT (25MCG) TABLET PO SCH (07:58)
[2021-07-25] MEDS: Loratadine 10 MG TABLET PO SCH (07:58)
[2021-07-25] MEDS: Furosemide 20 MG TABLET PO SCH (07:58)
[2021-07-25] MEDS: *HR* OxyCODONE Immed Rel 5 MG TABLET PO PRN ×2 (08:00→15:15)
[2021-07-25] MEDS: Ammonium Lactate 30 APPL/225 GM BOTTLE TP SCH (08:01)
[2021-07-25] MEDS: LAMOTRIGINE 100 MG PO SCH ×2 (08:02→18:39)
[2021-07-25] MEDS: Insulin LISPRO 300 UNITS/3 ML VIAL SUBQ SCH ×3 (08:07→16:55)
[2021-07-25 13:00] LABS: Adenovirus Not Detected (Not Detect); Bordetella Pertussis Not Detected (Not Detect); Chlamydophila pneumoniae Not Detected (Not Detect); Coronavirus HKU1 Not Detected (Not Detect); Coronavirus NL63 Not Detected (Not Detect); Coronavirus OC43 Not Detected (Not Detect); Human Metapneumovirus Not Detected (Not Detect); Human Rhinovirus/Enterovirus Not Detected (Not Detect); Influenza A Subtype 2009 H1 Not Detected (Not Detect); Influenza B Not Detected (Not Detect); Mycoplasma pneumoniae Not Detected (Not Detect); Parainfluenza Virus 1 Not Detected (Not Detect); Parainfluenza Virus 2 Not Detected (Not Detect); Parainfluenza Virus 3 Not Detected (Not Detect); Parainfluenza Virus 4 Not Detected (Not Detect); Respiratory Syncytial Virus Not Detected (Not Detect); SARS-CoV-2 Not Detected (Not Detect)
[2021-07-25 16:01] VITALS: O2SAT 90
[2021-07-25 19:26] VITALS: BP 142/75; PULSE 99; TEMP 98.2
[2021-07-30 15:14] LABS: Coronavirus 229E DETECTED (Not Detect)
== END 2021-07-25 19:47 ==
LOC: 4WAOSI 18:44 → EMEROOARM 18:44 → SUATTDRO 07-23 03:46 → 4WAOSI 07-23 04:15
PROVIDERS: ADMIT Internal Medicine; ATTEND Family Medicine

== ENCOUNTER 2021-08-12 18:22 | Inpatient (IN) ==
[2021-08-12] MEDS ORDERED: Ondansetron 4 MG/2 ML VIAL IVP PRN (22:34)
[2021-08-12] MEDS ORDERED: Naloxone 0.4 MG/ML INJ IVP PRN (22:34)
[2021-08-12] MEDS ORDERED: *HR* Dextrose 50 % in Water (Syg) 50 ML SYRINGE IVP PRN (23:26)
[2021-08-12] MEDS ORDERED: D5% in Water 1,000 ML IVC PRN (23:26)
[2021-08-12] MEDS ORDERED: Dextrose Gel 15 GM/37.5 ML TUBE PO PRN ×2 (23:26)
[2021-08-12] MEDS ORDERED: 0.9 % Sodium Chloride 1,000 ML IVC SCH (23:45)
[2021-08-13 02:49] LABS: Hematocrit 34.7 % (35.3-44.9); Hemoglobin 10.4 g/dL (11.5-15.4); Mean Corpuscular Hemoglobin 24.1 pg (28.0-33.3); Mean Corpuscular Volume 80.3 fL (83.0-100.0); Platelet Count 220 K/mcL (140-400); Red Blood Count 4.32 M/mcL (3.82-4.97); Red Cell Distribution Width 17.2 % (11.5-14.5); White Blood Count 19.7 K/mcL (4.3-11.1)
[2021-08-13 03:12] LABS: Alanine Aminotransferase 21 Units/L (7-52); Albumin 3.9 g/dL (3.5-5.7); Albumin/Globulin Ratio 1.1 (1.1-2.2); Alkaline Phosphatase 108 Units/L (34-104); Aspartate Amino Transferase 22 Units/L (13-39); BUN/Creatinine Ratio 20 (6-26); Bilirubin,Total 0.3 mg/dL (0.3-1.0); Blood Urea Nitrogen 24 mg/dL (6-20); Calcium 8.8 mg/dL (8.6-10.3); Carbon Dioxide 28 mEq/L (23-29); Chloride 101 mEq/L (98-107); Globulin 3.6 g/dL (2.4-3.5); Glucose 224 mg/dL (70-105); Osmolality,Calculated 295 (280-300); Potassium 4.7 mEq/L (3.5-5.1); Sodium 137 mEq/L (136-145); Total Protein 7.5 g/dL (6.4-8.9); eGFR For African Americans > 60 (> 60); eGFR For Non-African Americans 50 (> 60)
[2021-08-13] MEDS ORDERED: *HR* Heparin 5,000 UNIT/ML VIAL IVP PRN ×2 (03:47)
[2021-08-13] MEDS: cefTRIAXone 1,000 MG in 0.9 % Sodium Chloride Mini Bag 100 ML IVPB SCH ×2 (04:53→09:36)
[2021-08-13] MEDS ORDERED: *HR* Heparin 5,000 UNIT/ML VIAL SQ SCH (06:00)
[2021-08-13] MEDS: Heparin 25,000UNIT/250ML 1/2NS 25,000 UNIT/250 ML IV.SOLN IVC SCH (07:03)
[2021-08-13] MEDS: Azithromycin 500 MG in 0.9 % Sodium Chloride 250 ML IVPB SCH (09:37)
[2021-08-13] MEDS: Insulin LISPRO 300 UNITS/3 ML VIAL SUBQ SCH ×3 (09:42→16:34)
[2021-08-13] MEDS: Pregabalin 50 MG CAPSULE PO SCH (20:10)
[2021-08-13] MEDS: Mirtazapine 15 MG TABLET PO SCH (20:11)
[2021-08-13] MEDS ORDERED: Insulin DETEMIR 100 UNIT/ML X5UNITS SUBQ SCH (21:00)
[2021-08-14 02:16] LABS: Basophils % 0.3 %; Eosinophils % 0.3 %; Hematocrit 33.1 % (35.3-44.9); Immature Granulocytes % 0.6 % (0-4); Lymphocytes # 1.3 K/mcL (0.6-4.6); Lymphocytes % 10.6 %; Mean Corpuscular HGB Conc 30.2 g/dL (31.6-35.5); Mean Corpuscular Hemoglobin 24.7 pg (28.0-33.3); Mean Corpuscular Volume 81.7 fL (83.0-100.0); Monocytes # 0.8 K/mcL (0.0-1.3); Monocytes % 6.7 %; Neutrophils # 9.7 K/mcL (1.6-8.9); Platelet Count 200 K/mcL (140-400); Red Blood Count 4.05 M/mcL (3.82-4.97); Red Cell Distribution Width 17.1 % (11.5-14.5); Segmented Neutrophils % 81.5 %; White Blood Count 11.8 K/mcL (4.3-11.1)
[2021-08-14 02:36] LABS: BUN/Creatinine Ratio 19 (6-26); Blood Urea Nitrogen 19 mg/dL (6-20); Calcium 8.6 mg/dL (8.6-10.3); Carbon Dioxide 28 mEq/L (23-29); Chloride 99 mEq/L (98-107); Glucose 179 mg/dL (70-105); Osmolality,Calculated 289 (280-300); Potassium 4.3 mEq/L (3.5-5.1); Sodium 136 mEq/L (136-145); eGFR For African Americans > 60 (> 60); eGFR For Non-African Americans > 60 (> 60)
[2021-08-14] MEDS ORDERED: Isovue-370 500 ML BOTTLE IVP ONE (07:20)
[2021-08-14] MEDS ORDERED: 0.9 % Sodium Chloride 1,000 ML IVC SCH (07:30)
[2021-08-14] MEDS: Cholecalciferol (D-3) 1,000 UNIT (25MCG) TABLET PO SCH (08:27)
[2021-08-14] MEDS: Pregabalin 50 MG CAPSULE PO SCH ×3 (08:27→20:36)
[2021-08-14] MEDS: lamoTRIgine 100 MG TABLET PO SCH ×2 (08:27→20:38)
[2021-08-14] MEDS: Metoprolol XL (24 HR) Succ 50 MG TAB.ER.24H PO SCH (08:27)
[2021-08-14] MEDS: Loratadine 10 MG TABLET PO SCH (08:27)
[2021-08-14] MEDS: Azithromycin 500 MG in 0.9 % Sodium Chloride 250 ML IVPB SCH (08:28)
[2021-08-14] MEDS: Insulin LISPRO 300 UNITS/3 ML VIAL SUBQ SCH ×3 (08:31→17:22)
[2021-08-14] MEDS: cefTRIAXone 1,000 MG in 0.9 % Sodium Chloride Mini Bag 100 ML IVPB SCH (08:32)
[2021-08-14] MEDS: Acetaminophen 325 MG TABLET PO PRN ×2 (08:33→20:37)
[2021-08-14] MEDS: Heparin 25,000UNIT/250ML 1/2NS 25,000 UNIT/250 ML IV.SOLN IVC SCH (10:13)
[2021-08-14 13:13] LABS: ABG Base Excess 6 mEq/L (-2 to 3); ABG HCO3 34 mEq/L (21-27); ABG Oxygen Saturation 98 % (95-98); ABG PCO2 62 mmHg (35-45); ABG PH 7.34 pH Units (7.32-7.45); ABG PO2 107 mmHg (85-104); ABG TCO2 36 mEq/L (20-26)
[2021-08-14] MEDS: *HR* Heparin 5,000 UNIT/ML VIAL SQ SCH ×2 (17:20→20:38)
[2021-08-14] MEDS: tiZANidine 4 MG TABLET PO PRN (18:32)
[2021-08-14] MEDS: Mirtazapine 15 MG TABLET PO SCH (20:38)
[2021-08-15] MEDS: *HR* Heparin 5,000 UNIT/ML VIAL SQ SCH ×3 (05:48→20:13)
[2021-08-15 06:03] LABS: Basophils # 0.1 K/mcL (0.0-0.2); Basophils % 0.7 %; Eosinophils # 0.1 K/mcL (0.0-0.6); Eosinophils % 1.2 %; Hematocrit 38.2 % (35.3-44.9); Hemoglobin 11.1 g/dL (11.5-15.4); Immature Granulocytes % 0.9 % (0-4); Lymphocytes # 1.6 K/mcL (0.6-4.6); Lymphocytes % 18.7 %; Mean Corpuscular HGB Conc 29.1 g/dL (31.6-35.5); Mean Corpuscular Hemoglobin 24.1 pg (28.0-33.3); Mean Platelet Volume 11.1 fL (9.4-12.4); Monocytes # 0.9 K/mcL (0.0-1.3); Monocytes % 10.7 %; Neutrophils # 5.8 K/mcL (1.6-8.9); Platelet Count 203 K/mcL (140-400); Red Cell Distribution Width 17.1 % (11.5-14.5); Segmented Neutrophils % 67.8 %; White Blood Count 8.6 K/mcL (4.3-11.1)
[2021-08-15 08:09] LABS: Calcium 9.3 mg/dL (8.6-10.3); Potassium 4.4 mEq/L (3.5-5.1)
[2021-08-15] MEDS ORDERED: *HR* Labetalol 20 MG/4 ML SYRINGE IVP PRN (09:50)
[2021-08-15] MEDS: Insulin DETEMIR 100 UNIT/ML X5UNITS SUBQ SCH (10:05)
[2021-08-15] MEDS: Insulin LISPRO 300 UNITS/3 ML VIAL SUBQ SCH ×3 (10:54→15:47)
[2021-08-15] MEDS: lamoTRIgine 100 MG TABLET PO SCH ×2 (10:55→20:10)
[2021-08-15] MEDS: Pregabalin 50 MG CAPSULE PO SCH ×2 (10:55→20:10)
[2021-08-15] MEDS: cefTRIAXone 1,000 MG in 0.9 % Sodium Chloride Mini Bag 100 ML IVPB SCH (10:55)
[2021-08-15] MEDS: Loratadine 10 MG TABLET PO SCH (10:55)
[2021-08-15] MEDS: Cholecalciferol (D-3) 1,000 UNIT (25MCG) TABLET PO SCH (10:56)
[2021-08-15] MEDS: Metoprolol XL (24 HR) Succ 50 MG TAB.ER.24H PO SCH (10:56)
[2021-08-15] MEDS: Azithromycin 500 MG in 0.9 % Sodium Chloride 250 ML IVPB SCH (10:56)
[2021-08-15] MEDS: amLODIPine 5 MG TABLET PO SCH (10:58)
[2021-08-15] MEDS: Acetaminophen 325 MG TABLET PO PRN (15:39)
[2021-08-15] MEDS: tiZANidine 4 MG TABLET PO PRN (15:39)
[2021-08-15] MEDS: Mirtazapine 15 MG TABLET PO SCH (20:10)
[2021-08-16 03:51] LABS: ABG Base Excess 8 mEq/L (-2 to 3); ABG HCO3 35 mEq/L (21-27); ABG Oxygen Saturation 90 % (95-98); ABG PCO2 63 mmHg (35-45); ABG PH 7.36 pH Units (7.32-7.45); ABG PO2 64 mmHg (85-104); ABG TCO2 37 mEq/L (20-26)
[2021-08-16] MEDS: *HR* Heparin 5,000 UNIT/ML VIAL SQ SCH ×3 (05:07→21:07)
[2021-08-16 07:45] LABS: Basophils # 0.1 K/mcL (0.0-0.2); Basophils % 0.7 %; Eosinophils # 0.2 K/mcL (0.0-0.6); Hematocrit 34.7 % (35.3-44.9); Hemoglobin 10.3 g/dL (11.5-15.4); Immature Granulocytes % 1.2 % (0-4); Lymphocytes # 1.4 K/mcL (0.6-4.6); Lymphocytes % 16.9 %; Mean Corpuscular HGB Conc 29.7 g/dL (31.6-35.5); Mean Corpuscular Hemoglobin 24.2 pg (28.0-33.3); Mean Corpuscular Volume 81.6 fL (83.0-100.0); Mean Platelet Volume 11.2 fL (9.4-12.4); Monocytes # 0.7 K/mcL (0.0-1.3); Monocytes % 8.1 %; Neutrophils # 5.7 K/mcL (1.6-8.9); Platelet Count 210 K/mcL (140-400); Red Blood Count 4.25 M/mcL (3.82-4.97); Red Cell Distribution Width 16.8 % (11.5-14.5); Segmented Neutrophils % 71.1 %
[2021-08-16 08:00] LABS: Calcium 9.2 mg/dL (8.6-10.3); Potassium 4.5 mEq/L (3.5-5.1)
[2021-08-16] MEDS: Azithromycin 500 MG in 0.9 % Sodium Chloride 250 ML IVPB SCH (08:42)
[2021-08-16] MEDS: cefTRIAXone 1,000 MG in 0.9 % Sodium Chloride Mini Bag 100 ML IVPB SCH (08:43)
[2021-08-16] MEDS: Loratadine 10 MG TABLET PO SCH (08:50)
[2021-08-16] MEDS: tiZANidine 4 MG TABLET PO PRN ×2 (08:50→16:18)
[2021-08-16] MEDS: Pregabalin 50 MG CAPSULE PO SCH ×2 (08:50→19:48)
[2021-08-16] MEDS: amLODIPine 5 MG TABLET PO SCH (08:50)
[2021-08-16] MEDS: Metoprolol XL (24 HR) Succ 50 MG TAB.ER.24H PO SCH (08:51)
[2021-08-16] MEDS: Acetaminophen 325 MG TABLET PO PRN ×3 (08:51→23:08)
[2021-08-16] MEDS: lamoTRIgine 100 MG TABLET PO SCH ×2 (08:51→19:49)
[2021-08-16] MEDS: Cholecalciferol (D-3) 1,000 UNIT (25MCG) TABLET PO SCH (08:51)
[2021-08-16] MEDS: Insulin DETEMIR 100 UNIT/ML X5UNITS SUBQ SCH (09:03)
[2021-08-16] MEDS: Insulin LISPRO 300 UNITS/3 ML VIAL SUBQ SCH ×3 (09:03→18:12)
[2021-08-16] MEDS ORDERED: 0.9 % Sodium Chloride 1,000 ML IVC SCH (12:00)
[2021-08-16] MEDS: Mirtazapine 15 MG TABLET PO SCH (19:49)
[2021-08-17] MEDS: *HR* Heparin 5,000 UNIT/ML VIAL SQ SCH ×3 (05:37→22:08)
[2021-08-17 07:09] LABS: Basophils % 0.4 %; Eosinophils # 0.3 K/mcL (0.0-0.6); Eosinophils % 2.9 %; Hematocrit 34.9 % (35.3-44.9); Hemoglobin 10.3 g/dL (11.5-15.4); Immature Granulocytes % 1.6 % (0-4); Lymphocytes # 1.5 K/mcL (0.6-4.6); Lymphocytes % 15.8 %; Mean Corpuscular HGB Conc 29.5 g/dL (31.6-35.5); Mean Corpuscular Volume 81.4 fL (83.0-100.0); Mean Platelet Volume 11.6 fL (9.4-12.4); Monocytes # 0.6 K/mcL (0.0-1.3); Monocytes % 6.6 %; Neutrophils # 6.9 K/mcL (1.6-8.9); Platelet Count 224 K/mcL (140-400); Red Blood Count 4.29 M/mcL (3.82-4.97); Red Cell Distribution Width 16.7 % (11.5-14.5); Segmented Neutrophils % 72.7 %; White Blood Count 9.5 K/mcL (4.3-11.1)
[2021-08-17 07:22] LABS: BUN/Creatinine Ratio 15 (6-26); Blood Urea Nitrogen 17 mg/dL (6-20); Calcium 9.5 mg/dL (8.6-10.3); Carbon Dioxide 34 mEq/L (23-29); Chloride 98 mEq/L (98-107); Glucose 172 mg/dL (70-105); Osmolality,Calculated 290 (280-300); Potassium 4.5 mEq/L (3.5-5.1); Sodium 137 mEq/L (136-145); eGFR For African Americans > 60 (> 60); eGFR For Non-African Americans 53 (> 60)
[2021-08-17] MEDS: Azithromycin 500 MG in 0.9 % Sodium Chloride 250 ML IVPB SCH (09:01)
[2021-08-17] MEDS: cefTRIAXone 1,000 MG in 0.9 % Sodium Chloride Mini Bag 100 ML IVPB SCH (09:02)
[2021-08-17] MEDS: Insulin DETEMIR 100 UNIT/ML X5UNITS SUBQ SCH (09:03)
[2021-08-17] MEDS: tiZANidine 4 MG TABLET PO PRN ×3 (09:03→22:06)
[2021-08-17] MEDS: Pregabalin 50 MG CAPSULE PO SCH ×2 (09:03→22:06)
[2021-08-17] MEDS: amLODIPine 5 MG TABLET PO SCH (09:04)
[2021-08-17] MEDS: Cholecalciferol (D-3) 1,000 UNIT (25MCG) TABLET PO SCH (09:04)
[2021-08-17] MEDS: Metoprolol XL (24 HR) Succ 50 MG TAB.ER.24H PO SCH (09:04)
[2021-08-17] MEDS: Acetaminophen 325 MG TABLET PO PRN ×2 (09:04→14:55)
[2021-08-17] MEDS: lamoTRIgine 100 MG TABLET PO SCH ×2 (09:05→22:05)
[2021-08-17] MEDS: Insulin LISPRO 300 UNITS/3 ML VIAL SUBQ SCH ×3 (09:05→17:38)
[2021-08-17] MEDS: Loratadine 10 MG TABLET PO SCH (09:05)
[2021-08-17] MEDS: Mirtazapine 15 MG TABLET PO SCH (22:05)
[2021-08-17] MEDS: Melatonin 3 MG TABLET PO PRN (22:06)
[2021-08-18] MEDS: *HR* Heparin 5,000 UNIT/ML VIAL SQ SCH ×3 (05:31→23:39)
[2021-08-18] MEDS: Insulin LISPRO 300 UNITS/3 ML VIAL SUBQ SCH ×2 (10:09→17:12)
[2021-08-18] MEDS: lamoTRIgine 100 MG TABLET PO SCH ×2 (10:10→23:59)
[2021-08-18] MEDS: amLODIPine 5 MG TABLET PO SCH (10:10)
[2021-08-18] MEDS: Cholecalciferol (D-3) 1,000 UNIT (25MCG) TABLET PO SCH (10:10)
[2021-08-18] MEDS: Metoprolol XL (24 HR) Succ 50 MG TAB.ER.24H PO SCH (10:10)
[2021-08-18] MEDS: Pregabalin 50 MG CAPSULE PO SCH ×2 (10:10→23:45)
[2021-08-18] MEDS: cefTRIAXone 1,000 MG in 0.9 % Sodium Chloride Mini Bag 100 ML IVPB SCH (10:11)
[2021-08-18] MEDS: MethylPREDNISolone 40 MG/ML VIAL IVP SCH (10:12)
[2021-08-18] MEDS: Furosemide 40 MG/4 ML VIAL IVP SCH (10:12)
[2021-08-18] MEDS: Loratadine 10 MG TABLET PO SCH (10:13)
[2021-08-18] MEDS: Insulin DETEMIR 100 UNIT/ML X5UNITS SUBQ SCH (10:15)
[2021-08-18 12:10] LABS: Basophils % 0.4 %; Eosinophils # 0.1 K/mcL (0.0-0.6); Eosinophils % 1.7 %; Hematocrit 39.6 % (35.3-44.9); Hemoglobin 11.8 g/dL (11.5-15.4); Immature Granulocytes % 1.4 % (0-4); Lymphocytes # 1.1 K/mcL (0.6-4.6); Lymphocytes % 12.8 %; Mean Corpuscular HGB Conc 29.8 g/dL (31.6-35.5); Mean Corpuscular Hemoglobin 23.8 pg (28.0-33.3); Mean Corpuscular Volume 79.8 fL (83.0-100.0); Mean Platelet Volume 11.2 fL (9.4-12.4); Monocytes # 0.3 K/mcL (0.0-1.3); Monocytes % 3.3 %; Neutrophils # 6.8 K/mcL (1.6-8.9); Platelet Count 267 K/mcL (140-400); Red Blood Count 4.96 M/mcL (3.82-4.97); Red Cell Distribution Width 16.6 % (11.5-14.5); Segmented Neutrophils % 80.4 %; White Blood Count 8.5 K/mcL (4.3-11.1)
[2021-08-18 12:26] LABS: BUN/Creatinine Ratio 16 (6-26); Blood Urea Nitrogen 17 mg/dL (6-20); Calcium 9.8 mg/dL (8.6-10.3); Carbon Dioxide 36 mEq/L (23-29); Chloride 93 mEq/L (98-107); Glucose 211 mg/dL (70-105); Osmolality,Calculated 288 (280-300); Potassium 4.6 mEq/L (3.5-5.1); Sodium 135 mEq/L (136-145); eGFR For African Americans > 60 (> 60); eGFR For Non-African Americans 57 (> 60)
[2021-08-18] MEDS: levoFLOXacin 750 MG TABLET PO SCH (17:20)
[2021-08-18] MEDS: tiZANidine 4 MG TABLET PO PRN (23:38)
[2021-08-18] MEDS: Acetaminophen 325 MG TABLET PO PRN (23:38)
[2021-08-18] MEDS: Melatonin 3 MG TABLET PO PRN (23:39)
[2021-08-18] MEDS: Mirtazapine 15 MG TABLET PO SCH (23:44)
[2021-08-19] MEDS: Insulin LISPRO 300 UNITS/3 ML VIAL SUBQ SCH ×5 (00:02→17:32)
[2021-08-19] MEDS: Furosemide 40 MG/4 ML VIAL IVP SCH (07:48)
[2021-08-19] MEDS: levoFLOXacin 750 MG TABLET PO SCH (07:48)
[2021-08-19] MEDS: Cholecalciferol (D-3) 1,000 UNIT (25MCG) TABLET PO SCH (07:48)
[2021-08-19] MEDS: Metoprolol XL (24 HR) Succ 50 MG TAB.ER.24H PO SCH (07:48)
[2021-08-19] MEDS: lamoTRIgine 100 MG TABLET PO SCH ×3 (07:48→21:33)
[2021-08-19] MEDS: *HR* Heparin 5,000 UNIT/ML VIAL SQ SCH ×3 (07:51→21:14)
[2021-08-19] MEDS: tiZANidine 4 MG TABLET PO PRN (07:52)
[2021-08-19] MEDS: Loratadine 10 MG TABLET PO SCH (07:52)
[2021-08-19] MEDS: amLODIPine 5 MG TABLET PO SCH (07:53)
[2021-08-19] MEDS: MethylPREDNISolone 40 MG/ML VIAL IVP SCH (07:54)
[2021-08-19] MEDS: Pregabalin 50 MG CAPSULE PO SCH ×2 (08:03→21:14)
[2021-08-19] MEDS: Insulin DETEMIR 100 UNIT/ML X5UNITS SUBQ SCH ×2 (08:06→21:17)
[2021-08-19] MEDS: Mirtazapine 15 MG TABLET PO SCH (21:16)
[2021-08-20] MEDS: *HR* Heparin 5,000 UNIT/ML VIAL SQ SCH ×3 (05:35→19:43)
[2021-08-20] MEDS: levoFLOXacin 750 MG TABLET PO SCH (08:33)
[2021-08-20] MEDS: Loratadine 10 MG TABLET PO SCH (08:33)
[2021-08-20] MEDS: amLODIPine 5 MG TABLET PO SCH (08:34)
[2021-08-20] MEDS: Pregabalin 50 MG CAPSULE PO SCH ×2 (08:34→19:42)
[2021-08-20] MEDS: Metoprolol XL (24 HR) Succ 50 MG TAB.ER.24H PO SCH (08:35)
[2021-08-20] MEDS: Cholecalciferol (D-3) 1,000 UNIT (25MCG) TABLET PO SCH (08:35)
[2021-08-20] MEDS: Insulin DETEMIR 100 UNIT/ML X5UNITS SUBQ SCH ×2 (08:37→20:51)
[2021-08-20] MEDS: Insulin LISPRO 300 UNITS/3 ML VIAL SUBQ SCH ×3 (08:37→16:24)
[2021-08-20] MEDS: Furosemide 40 MG/4 ML VIAL IVP SCH (08:38)
[2021-08-20] MEDS: lamoTRIgine 100 MG TABLET PO SCH ×2 (08:44→19:42)
[2021-08-20] MEDS: Mirtazapine 15 MG TABLET PO SCH (19:42)
[2021-08-20] MEDS: tiZANidine 4 MG TABLET PO PRN (19:42)
[2021-08-21] MEDS: *HR* Heparin 5,000 UNIT/ML VIAL SQ SCH ×3 (04:49→21:19)
[2021-08-21] MEDS: Insulin DETEMIR 100 UNIT/ML X5UNITS SUBQ SCH (09:13)
[2021-08-21] MEDS: Insulin LISPRO 300 UNITS/3 ML VIAL SUBQ SCH ×3 (09:13→16:17)
[2021-08-21] MEDS: levoFLOXacin 750 MG TABLET PO SCH (09:15)
[2021-08-21] MEDS: lamoTRIgine 100 MG TABLET PO SCH ×2 (09:15→19:45)
[2021-08-21] MEDS: Pregabalin 50 MG CAPSULE PO SCH ×2 (09:15→19:45)
[2021-08-21] MEDS: Cholecalciferol (D-3) 1,000 UNIT (25MCG) TABLET PO SCH (09:15)
[2021-08-21] MEDS: Metoprolol XL (24 HR) Succ 50 MG TAB.ER.24H PO SCH (09:15)
[2021-08-21] MEDS: amLODIPine 5 MG TABLET PO SCH (09:15)
[2021-08-21] MEDS: Furosemide 40 MG/4 ML VIAL IVP SCH (09:16)
[2021-08-21] MEDS ORDERED: predniSONE 20 MG TABLET PO SCH (09:30)
[2021-08-21] MEDS: Loratadine 10 MG TABLET PO SCH (11:16)
[2021-08-21] MEDS: tiZANidine 4 MG TABLET PO PRN ×2 (11:16→19:55)
[2021-08-21 15:31] VITALS: BP 143/91; PULSE 82; TEMP 97.4; O2SAT 97
[2021-08-21] MEDS ORDERED: Insulin DETEMIR 100 UNIT/ML X5UNITS SUBQ SCH (21:00)
[2021-08-21] MEDS: Mirtazapine 15 MG TABLET PO SCH (21:19)
== END 2021-08-21 21:54 | DRG 871 ==
LOC: 2NENU → SUATTDRO 22:34
PROVIDERS: ADMIT Student in an Organized Health Care Education/Training Program; ATTEND Family Medicine

== ENCOUNTER 2021-09-01 12:19 | Inpatient (IN) ==
[2021-09-01] MEDS: 0.9 % Sodium Chloride 1,000 ML IVC SCH ×4 (13:02→19:45)
[2021-09-01 13:13] LABS: Basophils % 0.2 %; Eosinophils % 0.2 %; Hematocrit 34.3 % (35.3-44.9); Hemoglobin 10.5 g/dL (11.5-15.4); Immature Granulocytes % 0.7 % (0-4); Lymphocytes # 2.3 K/mcL (0.6-4.6); Lymphocytes % 11.7 %; Mean Corpuscular HGB Conc 30.6 g/dL (31.6-35.5); Mean Corpuscular Hemoglobin 23.9 pg (28.0-33.3); Mean Corpuscular Volume 78.1 fL (83.0-100.0); Mean Platelet Volume 11.9 fL (9.4-12.4); Monocytes % 10.1 %; Neutrophils # 15.4 K/mcL (1.6-8.9); Platelet Count 232 K/mcL (140-400); Red Blood Count 4.39 M/mcL (3.82-4.97); Segmented Neutrophils % 77.1 %
[2021-09-01] MEDS ORDERED: Gentamicin 490 MG in 0.9 % Sodium Chloride 100 ML IVPB STA ×2 (13:22→19:06)
[2021-09-01] MEDS ORDERED: Piperacillin/Tazobactam 3.375 GM in 0.9 % Sodium Chloride Mini Bag 100 ML IVPB ONE (13:22)
[2021-09-01 13:28] LABS: Albumin 3.9 g/dL (3.5-5.7); Albumin/Globulin Ratio 1.1 (1.1-2.2); Bilirubin,Direct 0.3 mg/dL (0.0-0.2); Bilirubin,Indirect 0.4 mg/dL (0.0-1.0); Bilirubin,Total 0.7 mg/dL (0.3-1.0); Globulin 3.5 g/dL (2.4-3.5); Potassium 4.3 mEq/L (3.5-5.1); Total Protein 7.4 g/dL (6.4-8.9)
[2021-09-01] MEDS ORDERED: Gentamicin 300 MG in 0.9 % Sodium Chloride 100 ML IVPB STA (13:39)
[2021-09-01 13:43] LABS: Bacteria,Urine Few per hpf (None-Few); Bilirubin,Urine Negative (Negative); Blood,Urine Large (Negative); Clarity,Urine Ex.Turbid (Clear); Color,Urine Orange (Yellow); Glucose,Urine (UA) Normal (Normal); Ketones,Urine Negative (Negative); Leukocyte Esterase,Urine Large (Negative); Mucus,Urine Moderate per lpf (None-Few); Nitrite,Urine Negative (Negative); PH,Urine 5.5 pH Units (5.0-8.0); Protein,Urine >=300 mg/dL (Neg-Trace); RBC,Urine 50-100 per hpf (0-3); Specific Gravity,Urine 1.023 (1.010-1.025); Squamous Epithelial Cell,Urine Moderate per hpf (None-Few); WBC,Urine TNTC per hpf (0-3)
[2021-09-01] MEDS ORDERED: Vancomycin 2,000 MG/520 ML IV.SOLN IVPB ONE (14:00)
[2021-09-01] MEDS ORDERED: Ondansetron 4 MG/2 ML VIAL IVP PRN ×3 (16:02→19:06)
[2021-09-01] MEDS ORDERED: Melatonin 3 MG TABLET PO PRN ×2 (16:02→19:06)
[2021-09-01] MEDS ORDERED: Naloxone 0.4 MG/ML INJ IVP PRN ×2 (16:02→19:06)
[2021-09-01] MEDS ORDERED: *HR* Propofol 200 MG/20 ML VIAL IVP ONE (16:11)
[2021-09-01] MEDS ORDERED: Lidocaine -MPF 4% 5 ML AMPUL ONE (16:12)
[2021-09-01] MEDS ORDERED: *HR* FentaNYL (PF) 100 MCG/2 ML VIAL ONE ×2 (16:15→17:04)
[2021-09-01] MEDS ORDERED: 0.9 % Sodium Chloride 1,000 ML IVC SCH (16:15)
[2021-09-01] MEDS ORDERED: *HR* Midazolam HCl 2 MG/2 ML VIAL ONE (16:15)
[2021-09-01] MEDS ORDERED: Ondansetron 4 MG/2 ML VIAL ONE (16:18)
[2021-09-01] MEDS ORDERED: *HR* HYDROmorphone PF 0.5 MG/0.5 ML SYRINGE IVP PRN (16:24)
[2021-09-01] MEDS ORDERED: EPHEDrine 50 MG/ML VIAL ONE (16:31)
[2021-09-01] MEDS ORDERED: Albuterol 2.5 MG/3 ML NEBULIZER IH PRN (17:38)
[2021-09-01] MEDS ORDERED: tiZANidine 4 MG TABLET PO PRN (17:38)
[2021-09-01] MEDS ORDERED: Albumin Human 5% 25.0 GM/500 ML IV.SOLN ONE (18:04)
[2021-09-01] MEDS ORDERED: Albumin Human 5% 12.5 GM/250 ML IV.SOLN IVPB ONE (18:15)
[2021-09-01] MEDS ORDERED: Ringers Solution, Lactated 1,000 ML ONE (18:35)
[2021-09-01] MEDS ORDERED: Acetaminophen 325 MG TABLET PO PRN (19:17)
[2021-09-01] MEDS ORDERED: D5% in Water 1,000 ML IVC PRN (20:13)
[2021-09-01] MEDS ORDERED: *HR* Dextrose 50 % in Water (Syg) 50 ML SYRINGE IVP PRN (20:13)
[2021-09-01] MEDS ORDERED: Dextrose 4 GM Chewable Tablets PO PRN ×2 (20:13)
[2021-09-01] MEDS ORDERED: Pregabalin 50 MG CAPSULE PO SCH (21:00)
[2021-09-01] MEDS ORDERED: Mirtazapine 15 MG TABLET PO SCH (21:00)
[2021-09-01] MEDS: Piperacillin/Tazobactam 3.375 GM in 0.9 % Sodium Chloride Mini Bag 100 ML IVPB SCH (22:05)
[2021-09-01] MEDS ORDERED: Perflutren Lipid Microsphere 1.3 ML in 0.9 % Sodium Chloride 8.7 ML IVP PRN (23:31)
[2021-09-02] MEDS ORDERED: Piperacillin/Tazobactam 3.375 GM in 0.9 % Sodium Chloride Mini Bag 100 ML IVPB SCH
[2021-09-02] MEDS: Insulin LISPRO 300 UNITS/3 ML VIAL SUBQ SCH ×6 (00:22→20:07)
[2021-09-02] MEDS: Aspirin Enteric Coated 81 MG Tablet PO SCH ×2 (00:23→09:09)
[2021-09-02 00:29] LABS: Basophils % 0.1 %; Immature Granulocytes % 0.5 % (0-4); Lymphocytes % 3.2 %; Mean Corpuscular Volume 78.4 fL (83.0-100.0); Red Cell Distribution Width 18.1 % (11.5-14.5)
[2021-09-02 00:31] LABS: Hematocrit 31.5 % (35.3-44.9); Immature Platelets 4.3 % (1.1-6.1); Lymphocytes # 0.5 K/mcL (0.6-4.6); Mean Corpuscular HGB Conc 31.7 g/dL (31.6-35.5); Mean Corpuscular Hemoglobin 24.9 pg (28.0-33.3); Mean Platelet Volume 11.4 fL (9.4-12.4); Monocytes # 0.4 K/mcL (0.0-1.3); Monocytes % 2.2 %; Red Blood Count 4.02 M/mcL (3.82-4.97); White Blood Count 16.9 K/mcL (4.3-11.1)
[2021-09-02 00:49] LABS: Albumin 3.4 g/dL (3.5-5.7); Albumin/Globulin Ratio 1.1 (1.1-2.2); Calcium 8.3 mg/dL (8.6-10.3); Globulin 3.2 g/dL (2.4-3.5); Potassium 4.7 mEq/L (3.5-5.1); Total Protein 6.6 g/dL (6.4-8.9)
[2021-09-02 01:05] LABS: Neutrophils # 15.9 K/mcL (1.6-8.9); Platelet Count 93 K/mcL (140-400)
[2021-09-02] MEDS: 0.9 % Sodium Chloride 1,000 ML IVC SCH (02:38)
[2021-09-02] MEDS: Piperacillin/Tazobactam 3.375 GM in 0.9 % Sodium Chloride Mini Bag 100 ML IVPB SCH ×3 (05:28→23:02)
[2021-09-02] MEDS ORDERED: LAMOTRIGINE 100 MG PO SCH (09:00)
[2021-09-02] MEDS ORDERED: Cholecalciferol (D-3) 1,000 UNIT (25MCG) TABLET PO SCH (09:00)
[2021-09-02] MEDS ORDERED: Metoprolol XL (24 HR) Succ 50 MG TAB.ER.24H PO SCH (09:00)
[2021-09-02] MEDS ORDERED: ALPHA LIPOIC ACID 600 MG PO SCH (09:00)
[2021-09-02] MEDS ORDERED: Furosemide 20 MG TABLET PO SCH (09:00)
[2021-09-02] MEDS: Metoprolol XL (24 HR) Succ 50 MG TAB.ER.24H PO SCH (09:08)
[2021-09-02] MEDS: Loratadine 10 MG TABLET PO SCH (09:09)
[2021-09-02] MEDS: *HR* HYDROcodone/Acet 5/325 mg TABLET PO PRN ×2 (09:09→16:10)
[2021-09-02] MEDS: polyethylene glycoL 3350 17 GM POWD.PACK PO SCH (09:15)
[2021-09-03] MEDS: Pregabalin 75 MG CAPSULE PO SCH ×3 (01:17→20:30)
[2021-09-03] MEDS: tiZANidine 4 MG TABLET PO PRN ×2 (01:17→20:29)
[2021-09-03] MEDS: Piperacillin/Tazobactam 3.375 GM in 0.9 % Sodium Chloride Mini Bag 100 ML IVPB SCH (05:13)
[2021-09-03] MEDS: Aspirin Enteric Coated 81 MG Tablet PO SCH (09:21)
[2021-09-03] MEDS: polyethylene glycoL 3350 17 GM POWD.PACK PO SCH (09:21)
[2021-09-03] MEDS: Loratadine 10 MG TABLET PO SCH (09:21)
[2021-09-03] MEDS: Metoprolol XL (24 HR) Succ 50 MG TAB.ER.24H PO SCH (09:21)
[2021-09-03] MEDS: Insulin LISPRO 300 UNITS/3 ML VIAL SUBQ SCH ×5 (09:27→21:32)
[2021-09-03] MEDS: *HR* HYDROcodone/Acet 5/325 mg TABLET PO PRN ×2 (09:32→20:29)
[2021-09-03 12:11] LABS: Basophils % 0.1 %; Hemoglobin 9.9 g/dL (11.5-15.4); Mean Corpuscular Hemoglobin 24.1 pg (28.0-33.3); Monocytes % 5.4 %
[2021-09-03 12:13] LABS: Hematocrit 31.9 % (35.3-44.9); Immature Granulocytes % 0.4 % (0-4); Immature Platelets 9.7 % (1.1-6.1); Lymphocytes # 0.7 K/mcL (0.6-4.6); Lymphocytes % 7.1 %; Mean Corpuscular Volume 77.8 fL (83.0-100.0); Mean Platelet Volume 11.9 fL (9.4-12.4); Monocytes # 0.6 K/mcL (0.0-1.3); Neutrophils # 8.8 K/mcL (1.6-8.9); Red Cell Distribution Width 17.9 % (11.5-14.5); White Blood Count 10.1 K/mcL (4.3-11.1)
[2021-09-03 12:18] LABS: Platelet Count 82 K/mcL (140-400)
[2021-09-03 12:41] LABS: Albumin 3.3 g/dL (3.5-5.7); Bilirubin,Total 0.3 mg/dL (0.3-1.0); Globulin 3.3 g/dL (2.4-3.5); Total Protein 6.6 g/dL (6.4-8.9)
[2021-09-03] MEDS: cefTRIAXone 2,000 MG in 0.9 % Sodium Chloride 20 ML IVP SCH (12:53)
[2021-09-03 14:51] LABS: Uric Acid 7.9 mg/dL (2.3-7.6)
[2021-09-03] MEDS ORDERED: Insulin DETEMIR 100 UNIT/ML X5UNITS SUBQ SCH (21:00)
[2021-09-03 21:44] LABS: Protein/Creatinine Ratio,Urine 2.13 mg/mg (0.00-0.20); Sodium, Urine 42.9 mEq/L
[2021-09-04 01:53] LABS: Eosinophils % 0.2 %
[2021-09-04 01:55] LABS: Hematocrit 30.9 % (35.3-44.9); Hemoglobin 9.5 g/dL (11.5-15.4); Immature Granulocytes % 0.3 % (0-4); Immature Platelets 10.9 % (1.1-6.1); Lymphocytes # 1.2 K/mcL (0.6-4.6); Lymphocytes % 13.9 %; Mean Corpuscular HGB Conc 30.7 g/dL (31.6-35.5); Mean Corpuscular Hemoglobin 23.8 pg (28.0-33.3); Mean Corpuscular Volume 77.4 fL (83.0-100.0); Mean Platelet Volume 12.4 fL (9.4-12.4); Monocytes # 0.6 K/mcL (0.0-1.3); Monocytes % 7.2 %; Red Blood Count 3.99 M/mcL (3.82-4.97); Red Cell Distribution Width 17.9 % (11.5-14.5); Segmented Neutrophils % 78.4 %; White Blood Count 8.6 K/mcL (4.3-11.1)
[2021-09-04 01:58] LABS: Neutrophils # 6.7 K/mcL (1.6-8.9); Platelet Count 85 K/mcL (140-400)
[2021-09-04 03:18] LABS: Albumin 3.3 g/dL (3.5-5.7); Bilirubin,Total 0.2 mg/dL (0.3-1.0); Globulin 3.2 g/dL (2.4-3.5); Potassium 4.4 mEq/L (3.5-5.1); Total Protein 6.5 g/dL (6.4-8.9)
[2021-09-04] MEDS: Pregabalin 75 MG CAPSULE PO SCH ×2 (07:54→20:58)
[2021-09-04] MEDS: Aspirin Enteric Coated 81 MG Tablet PO SCH (07:54)
[2021-09-04] MEDS: Metoprolol XL (24 HR) Succ 50 MG TAB.ER.24H PO SCH (07:54)
[2021-09-04] MEDS: Loratadine 10 MG TABLET PO SCH (07:54)
[2021-09-04] MEDS: cefTRIAXone 2,000 MG in 0.9 % Sodium Chloride 20 ML IVP SCH (07:56)
[2021-09-04] MEDS: Insulin LISPRO 300 UNITS/3 ML VIAL SUBQ SCH ×4 (07:58→20:57)
[2021-09-04] MEDS: *HR* HYDROcodone/Acet 5/325 mg TABLET PO PRN ×2 (08:26→15:55)
[2021-09-04] MEDS: polyethylene glycoL 3350 17 GM POWD.PACK PO SCH (08:28)
[2021-09-04] MEDS: tiZANidine 4 MG TABLET PO PRN ×2 (10:52→21:12)
[2021-09-04] MEDS: *HR* Heparin 5,000 UNIT/ML VIAL SQ SCH ×2 (15:54→21:12)
[2021-09-04] MEDS: Ampicillin/Sulbactam 3,000 MG in 0.9 % Sodium Chloride Mini Bag 100 ML IVPB SCH (20:52)
[2021-09-04] MEDS: Insulin DETEMIR 100 UNIT/ML X5UNITS SUBQ SCH (20:57)
[2021-09-04] MEDS: Mirtazapine 15 MG TABLET PO SCH (23:22)
[2021-09-04] MEDS: lamoTRIgine 100 MG TABLET PO SCH (23:22)
[2021-09-05] MEDS: Nystatin POWDER 30 GM BOTTLE TP SCH ×4 (00:35→21:02)
[2021-09-05] MEDS: Ampicillin/Sulbactam 3,000 MG in 0.9 % Sodium Chloride Mini Bag 100 ML IVPB SCH ×3 (04:37→18:04)
[2021-09-05] MEDS: *HR* Heparin 5,000 UNIT/ML VIAL SQ SCH ×3 (04:37→20:52)
[2021-09-05 08:09] LABS: Albumin 3.6 g/dL (3.5-5.7); Albumin/Globulin Ratio 1.1 (1.1-2.2); Bilirubin,Total 0.3 mg/dL (0.3-1.0); Calcium 8.7 mg/dL (8.6-10.3); Globulin 3.3 g/dL (2.4-3.5); Potassium 4.2 mEq/L (3.5-5.1); Total Protein 6.9 g/dL (6.4-8.9)
[2021-09-05] MEDS: *HR* HYDROcodone/Acet 5/325 mg TABLET PO PRN ×2 (08:17→20:51)
[2021-09-05] MEDS: Pregabalin 75 MG CAPSULE PO SCH ×2 (08:17→20:51)
[2021-09-05] MEDS: tiZANidine 4 MG TABLET PO PRN ×2 (08:17→20:51)
[2021-09-05] MEDS: Aspirin Enteric Coated 81 MG Tablet PO SCH (08:17)
[2021-09-05] MEDS: polyethylene glycoL 3350 17 GM POWD.PACK PO SCH (08:18)
[2021-09-05] MEDS: Loratadine 10 MG TABLET PO SCH (08:18)
[2021-09-05] MEDS: Insulin LISPRO 300 UNITS/3 ML VIAL SUBQ SCH ×4 (08:18→20:50)
[2021-09-05] MEDS: Metoprolol XL (24 HR) Succ 50 MG TAB.ER.24H PO SCH (08:18)
[2021-09-05] MEDS ORDERED: *HR* Labetalol 20 MG/4 ML SYRINGE IVP PRN (08:38)
[2021-09-05 17:07] LABS: Basophils % 0.6 %; Eosinophils # 0.2 K/mcL (0.0-0.6); Eosinophils % 2.8 %; Hematocrit 33.8 % (35.3-44.9); Hemoglobin 10.4 g/dL (11.5-15.4); Immature Granulocytes % 0.4 % (0-4); Lymphocytes # 1.2 K/mcL (0.6-4.6); Lymphocytes % 22.7 %; Mean Corpuscular HGB Conc 30.8 g/dL (31.6-35.5); Mean Corpuscular Hemoglobin 24.1 pg (28.0-33.3); Mean Corpuscular Volume 78.4 fL (83.0-100.0); Mean Platelet Volume 12.7 fL (9.4-12.4); Monocytes # 0.5 K/mcL (0.0-1.3); Monocytes % 10.1 %; Neutrophils # 3.4 K/mcL (1.6-8.9); Platelet Count 114 K/mcL (140-400); Red Blood Count 4.31 M/mcL (3.82-4.97); Segmented Neutrophils % 63.4 %; White Blood Count 5.3 K/mcL (4.3-11.1)
[2021-09-05] MEDS: Insulin DETEMIR 100 UNIT/ML X5UNITS SUBQ SCH (20:50)
[2021-09-05] MEDS: lamoTRIgine 100 MG TABLET PO SCH (20:51)
[2021-09-05] MEDS: Mirtazapine 15 MG TABLET PO SCH (20:51)
[2021-09-06] MEDS: Ampicillin/Sulbactam 3,000 MG in 0.9 % Sodium Chloride Mini Bag 100 ML IVPB SCH ×2 (02:16→11:51)
[2021-09-06 04:41] LABS: Basophils % 0.3 %; Eosinophils # 0.2 K/mcL (0.0-0.6); Eosinophils % 3.1 %; Hematocrit 34.9 % (35.3-44.9); Hemoglobin 10.6 g/dL (11.5-15.4); Immature Granulocytes % 0.5 % (0-4); Immature Platelets 11.7 % (1.1-6.1); Lymphocytes # 1.3 K/mcL (0.6-4.6); Lymphocytes % 21.1 %; Mean Corpuscular HGB Conc 30.4 g/dL (31.6-35.5); Mean Corpuscular Hemoglobin 23.9 pg (28.0-33.3); Mean Corpuscular Volume 78.6 fL (83.0-100.0); Mean Platelet Volume 12.8 fL (9.4-12.4); Monocytes # 0.6 K/mcL (0.0-1.3); Monocytes % 9.7 %; Platelet Count 115 K/mcL (140-400); Red Blood Count 4.44 M/mcL (3.82-4.97); Red Cell Distribution Width 17.7 % (11.5-14.5); Segmented Neutrophils % 65.3 %; White Blood Count 6.1 K/mcL (4.3-11.1)
[2021-09-06 04:56] LABS: Potassium 4.3 mEq/L (3.5-5.1)
[2021-09-06] MEDS: *HR* Heparin 5,000 UNIT/ML VIAL SQ SCH (05:13)
[2021-09-06] MEDS: Metoprolol XL (24 HR) Succ 50 MG TAB.ER.24H PO SCH (08:21)
[2021-09-06] MEDS: Loratadine 10 MG TABLET PO SCH (08:21)
[2021-09-06] MEDS: Pregabalin 75 MG CAPSULE PO SCH (08:21)
[2021-09-06] MEDS: tiZANidine 4 MG TABLET PO PRN (08:21)
[2021-09-06] MEDS: *HR* HYDROcodone/Acet 5/325 mg TABLET PO PRN (08:21)
[2021-09-06] MEDS: Aspirin Enteric Coated 81 MG Tablet PO SCH (08:21)
[2021-09-06] MEDS: polyethylene glycoL 3350 17 GM POWD.PACK PO SCH (08:25)
[2021-09-06] MEDS: Nystatin POWDER 30 GM BOTTLE TP SCH (08:25)
[2021-09-06] MEDS: Insulin LISPRO 300 UNITS/3 ML VIAL SUBQ SCH ×2 (09:00→12:02)
[2021-09-06] MEDS ORDERED: lamoTRIgine 100 MG TABLET PO SCH (09:00)
[2021-09-06 10:29] VITALS: BP 109/59; PULSE 83; TEMP 98.7; O2SAT 92
== END 2021-09-06 15:50 | disposition home health service (06) | DRG 853 ==
LOC: EMEROOARM 12:19 → 2NNU 16:16 → 2NENU 09-03 17:36
PROVIDERS: ADMIT Hospitalist; ATTEND Hospitalist

== ENCOUNTER 2021-10-01 11:03 | Inpatient (IN) ==
[2021-10-01] MEDS ORDERED: *HR* FentaNYL (PF) 100 MCG/2 ML VIAL IVP PRN (11:19)
[2021-10-01] MEDS ORDERED: *HR* Midazolam HCl 2 MG/2 ML VIAL ONE (11:26)
[2021-10-01] MEDS ORDERED: *HR* FentaNYL (PF) 100 MCG/2 ML VIAL ONE (11:26)
[2021-10-01] MEDS ORDERED: *HR* Propofol 200 MG/20 ML VIAL IVP ONE (11:26)
[2021-10-01] MEDS ORDERED: *HR* Succinylcholine 200 MG/10 ML VIAL IVP ONE (11:27)
[2021-10-01] MEDS ORDERED: CeFAZolin Syr 3,000MG/30 ML 3,000 MG/30 ML SYRINGE IVPB ONE (11:39)
[2021-10-01] MEDS ORDERED: Isovue-300 50ML VIAL ONE (11:48)
[2021-10-01] MEDS ORDERED: *HR* Dextrose 50 % in Water (Vial) 50 ML VIAL IVP STA (11:55)
[2021-10-01] MEDS: Ringers Solution, Lactated 1,000 ML IVC SCH (12:17)
[2021-10-01] MEDS ORDERED: Lidocaine -MPF 2% 5 ML VIAL ONE (12:57)
[2021-10-01] MEDS ORDERED: Ondansetron 4 MG/2 ML VIAL ONE (12:57)
[2021-10-01] MEDS ORDERED: *HR* Rocuronium Bromide 50 MG/5 ML VIAL ONE (12:57)
[2021-10-01] MEDS ORDERED: Ipratropium/Albuterol Neb 3 ML IH ONE (17:42)
[2021-10-01] MEDS ORDERED: Ondansetron 4 MG/2 ML VIAL IVP PRN (18:26)
[2021-10-01] MEDS ORDERED: Naloxone 0.4 MG/ML INJ IVP PRN (18:26)
[2021-10-01 20:15] LABS: Basophils % 0.2 %; Eosinophils % 0.2 %; Hematocrit 34.7 % (35.3-44.9); Hemoglobin 10.4 g/dL (11.5-15.4); Immature Granulocytes % 0.6 % (0-4); Lymphocytes % 9.3 %; Mean Corpuscular Hemoglobin 24.6 pg (28.0-33.3); Mean Platelet Volume 11.4 fL (9.4-12.4); Monocytes # 0.5 K/mcL (0.0-1.3); Monocytes % 4.8 %; Neutrophils # 8.7 K/mcL (1.6-8.9); Nucleated Red Blood Cells 0.2 /100 WBC (0); Platelet Count 207 K/mcL (140-400); Red Blood Count 4.23 M/mcL (3.82-4.97); Red Cell Distribution Width 21.1 % (11.5-14.5); Segmented Neutrophils % 84.9 %; White Blood Count 10.2 K/mcL (4.3-11.1)
[2021-10-01] MEDS ORDERED: *HR* Metoprolol 5 MG/5 ML VIAL IVP ONE (20:20)
[2021-10-01 20:34] LABS: BUN/Creatinine Ratio 14 (6-26); Blood Urea Nitrogen 15 mg/dL (6-20); Calcium 9.7 mg/dL (8.6-10.3); Carbon Dioxide 28 mEq/L (23-29); Chloride 103 mEq/L (98-107); Glucose 183 mg/dL (70-105); Osmolality,Calculated 294 (280-300); Potassium 4.5 mEq/L (3.5-5.1); Sodium 139 mEq/L (136-145); eGFR For African Americans > 60 (> 60); eGFR For Non-African Americans 54 (> 60)
[2021-10-01] MEDS ORDERED: Acetaminophen IV 1,000 MG/100 ML BAG IVPB ONE (20:40)
[2021-10-01] MEDS: Pregabalin 50 MG CAPSULE PO SCH (21:40)
[2021-10-02] MEDS ORDERED: Albuterol 2.5 MG/3 ML NEBULIZER IH PRN (08:02)
[2021-10-02] MEDS ORDERED: tiZANidine 4 MG TABLET PO PRN (08:02)
[2021-10-02] MEDS ORDERED: D5% in Water 1,000 ML IVC PRN (08:05)
[2021-10-02] MEDS ORDERED: *HR* Dextrose 50 % in Water (Syg) 50 ML SYRINGE IVP PRN (08:05)
[2021-10-02] MEDS ORDERED: Dextrose 4 GM Chewable Tablets PO PRN ×2 (08:05)
[2021-10-02] MEDS: Metoprolol XL (24 HR) Succ 50 MG TAB.ER.24H PO SCH (08:56)
[2021-10-02] MEDS: Pregabalin 50 MG CAPSULE PO SCH ×3 (08:56→22:21)
[2021-10-02] MEDS: Loratadine 10 MG TABLET PO SCH (08:57)
[2021-10-02] MEDS: lamoTRIgine 100 MG TABLET PO SCH ×2 (08:57→17:05)
[2021-10-02] MEDS: Aspirin Enteric Coated 81 MG Tablet PO SCH (08:57)
[2021-10-02] MEDS: Magnesium Oxide 400 MG TABLET PO SCH (08:57)
[2021-10-02] MEDS: ARIPiprazole 5 MG TABLET PO SCH (08:57)
[2021-10-02] MEDS: Ringers Solution, Lactated 1,000 ML IVC SCH (09:00)
[2021-10-02] MEDS ORDERED: cefTRIAXone 2,000 MG in 0.9 % Sodium Chloride 20 ML IVP SCH (09:00)
[2021-10-02] MEDS: Insulin LISPRO 300 UNITS/3 ML VIAL SUBQ SCH ×2 (12:35→17:06)
[2021-10-02 13:00] LABS: Bacteria,Urine Few per hpf (None-Few); Bilirubin,Urine Negative (Negative); Blood,Urine Moderate (Negative); Clarity,Urine Clear (Clear); Color,Urine Colorless (Yellow); Glucose,Urine (UA) Normal (Normal); Ketones,Urine Negative (Negative); Leukocyte Esterase,Urine Moderate (Negative); Mucus,Urine Few per lpf (None-Few); Nitrite,Urine Negative (Negative); Protein,Urine Trace mg/dL (Neg-Trace); RBC,Urine 15-30 per hpf (0-3); Specific Gravity,Urine 1.009 (1.010-1.025); Squamous Epithelial Cell,Urine Few per hpf (None-Few); Urobilinogen,Urine Normal (Normal); WBC,Urine 30-50 per hpf (0-3)
[2021-10-02 13:23] LABS: Basophils % 0.3 %; Eosinophils # 0.1 K/mcL (0.0-0.6); Hematocrit 34.3 % (35.3-44.9); Hemoglobin 10.3 g/dL (11.5-15.4); Immature Granulocytes % 0.6 % (0-4); Lymphocytes # 1.9 K/mcL (0.6-4.6); Lymphocytes % 21.2 %; Mean Corpuscular Hemoglobin 24.9 pg (28.0-33.3); Mean Corpuscular Volume 82.9 fL (83.0-100.0); Mean Platelet Volume 10.9 fL (9.4-12.4); Monocytes # 0.9 K/mcL (0.0-1.3); Neutrophils # 5.8 K/mcL (1.6-8.9); Platelet Count 206 K/mcL (140-400); Red Blood Count 4.14 M/mcL (3.82-4.97); Red Cell Distribution Width 20.9 % (11.5-14.5); Segmented Neutrophils % 66.9 %; White Blood Count 8.7 K/mcL (4.3-11.1)
[2021-10-02 14:02] LABS: BUN/Creatinine Ratio 15 (6-26); Blood Urea Nitrogen 16 mg/dL (6-20); Calcium 9.8 mg/dL (8.6-10.3); Carbon Dioxide 30 mEq/L (23-29); Chloride 100 mEq/L (98-107); Glucose 171 mg/dL (70-105); Osmolality,Calculated 295 (280-300); Potassium 4.2 mEq/L (3.5-5.1); Sodium 140 mEq/L (136-145); eGFR For African Americans > 60 (> 60); eGFR For Non-African Americans 59 (> 60)
[2021-10-02] MEDS: Piperacillin/Tazobactam 3.375 GM in 0.9 % Sodium Chloride Mini Bag 100 ML IVPB SCH (15:33)
[2021-10-02] MEDS: Mirtazapine 15 MG TABLET PO SCH (22:21)
[2021-10-03 01:51] LABS: Basophils % 0.5 %; Eosinophils # 0.3 K/mcL (0.0-0.6); Eosinophils % 3.4 %; Hematocrit 32.9 % (35.3-44.9); Hemoglobin 9.9 g/dL (11.5-15.4); Immature Granulocytes % 0.7 % (0-4); Lymphocytes % 24.2 %; Mean Corpuscular HGB Conc 30.1 g/dL (31.6-35.5); Mean Corpuscular Volume 83.1 fL (83.0-100.0); Mean Platelet Volume 11.2 fL (9.4-12.4); Monocytes # 0.8 K/mcL (0.0-1.3); Monocytes % 9.8 %; Neutrophils # 5.1 K/mcL (1.6-8.9); Platelet Count 191 K/mcL (140-400); Red Blood Count 3.96 M/mcL (3.82-4.97); Red Cell Distribution Width 20.7 % (11.5-14.5); Segmented Neutrophils % 61.4 %; White Blood Count 8.3 K/mcL (4.3-11.1)
[2021-10-03 02:08] LABS: BUN/Creatinine Ratio 20 (6-26); Blood Urea Nitrogen 19 mg/dL (6-20); Calcium 9.3 mg/dL (8.6-10.3); Carbon Dioxide 33 mEq/L (23-29); Chloride 100 mEq/L (98-107); Glucose 169 mg/dL (70-105); Osmolality,Calculated 294 (280-300); Potassium 4.1 mEq/L (3.5-5.1); Sodium 139 mEq/L (136-145); eGFR For African Americans > 60 (> 60); eGFR For Non-African Americans > 60 (> 60)
[2021-10-03] MEDS: Piperacillin/Tazobactam 3.375 GM in 0.9 % Sodium Chloride Mini Bag 100 ML IVPB SCH ×4 (02:09→23:48)
[2021-10-03] MEDS: Loratadine 10 MG TABLET PO SCH (08:08)
[2021-10-03] MEDS: ARIPiprazole 5 MG TABLET PO SCH (08:08)
[2021-10-03] MEDS: Insulin LISPRO 300 UNITS/3 ML VIAL SUBQ SCH ×3 (08:08→17:20)
[2021-10-03] MEDS: Magnesium Oxide 400 MG TABLET PO SCH (08:09)
[2021-10-03] MEDS: Metoprolol XL (24 HR) Succ 50 MG TAB.ER.24H PO SCH (08:09)
[2021-10-03] MEDS: lamoTRIgine 100 MG TABLET PO SCH ×2 (08:09→18:15)
[2021-10-03] MEDS: Aspirin Enteric Coated 81 MG Tablet PO SCH (08:09)
[2021-10-03] MEDS: Pregabalin 50 MG CAPSULE PO SCH ×3 (08:09→20:52)
[2021-10-03] MEDS ORDERED: Isovue-370 500 ML BOTTLE IVP ONE (09:44)
[2021-10-03] MEDS: Furosemide 20 MG TABLET PO SCH (12:19)
[2021-10-03] MEDS: *HR* Heparin 5,000 UNIT/ML VIAL SQ SCH ×2 (15:52→20:52)
[2021-10-03] MEDS: Mirtazapine 15 MG TABLET PO SCH (20:52)
[2021-10-04 02:45] LABS: Hematocrit 34.2 % (35.3-44.9); Hemoglobin 10.2 g/dL (11.5-15.4); Mean Corpuscular HGB Conc 29.8 g/dL (31.6-35.5); Mean Corpuscular Hemoglobin 24.7 pg (28.0-33.3); Mean Corpuscular Volume 82.8 fL (83.0-100.0); Mean Platelet Volume 11.3 fL (9.4-12.4); Platelet Count 174 K/mcL (140-400); Red Blood Count 4.13 M/mcL (3.82-4.97); Red Cell Distribution Width 20.1 % (11.5-14.5); White Blood Count 8.3 K/mcL (4.3-11.1)
[2021-10-04 03:05] LABS: BUN/Creatinine Ratio 16 (6-26); Blood Urea Nitrogen 16 mg/dL (6-20); Calcium 9.6 mg/dL (8.6-10.3); Carbon Dioxide 32 mEq/L (23-29); Chloride 98 mEq/L (98-107); Glucose 175 mg/dL (70-105); Osmolality,Calculated 291 (280-300); Sodium 138 mEq/L (136-145); eGFR For African Americans > 60 (> 60); eGFR For Non-African Americans > 60 (> 60)
[2021-10-04] MEDS: *HR* Heparin 5,000 UNIT/ML VIAL SQ SCH ×2 (06:06→16:38)
[2021-10-04] MEDS: Magnesium Oxide 400 MG TABLET PO SCH (09:43)
[2021-10-04] MEDS: Loratadine 10 MG TABLET PO SCH (09:43)
[2021-10-04] MEDS: ARIPiprazole 5 MG TABLET PO SCH (09:44)
[2021-10-04] MEDS: Pregabalin 50 MG CAPSULE PO SCH ×2 (09:44→16:36)
[2021-10-04] MEDS: lamoTRIgine 100 MG TABLET PO SCH ×2 (09:44→16:37)
[2021-10-04] MEDS: Metoprolol XL (24 HR) Succ 50 MG TAB.ER.24H PO SCH (09:44)
[2021-10-04] MEDS: Furosemide 20 MG TABLET PO SCH (09:44)
[2021-10-04] MEDS: Aspirin Enteric Coated 81 MG Tablet PO SCH (09:44)
[2021-10-04] MEDS: Piperacillin/Tazobactam 3.375 GM in 0.9 % Sodium Chloride Mini Bag 100 ML IVPB SCH (09:45)
[2021-10-04] MEDS: Insulin LISPRO 300 UNITS/3 ML VIAL SUBQ SCH ×3 (09:48→16:37)
[2021-10-04] MEDS ORDERED: cefTRIAXone 2,000 MG in 0.9 % Sodium Chloride 20 ML IVP SCH (11:00)
[2021-10-04] MEDS ORDERED: DAPTOmycin 900 MG in 0.9 % Sodium Chloride 100 ML IVPB SCH (11:30)
[2021-10-04 14:40] VITALS: BP 163/90; PULSE 96; TEMP 98.8; O2SAT 93
== END 2021-10-04 19:42 | disposition home health service (06) | DRG 871 ==
LOC: SAMDAY 11:03 → 3ANU 11:03 → SAMDAY 15:08 → 3ANU 18:18 → SUATTDRO 10-03 13:50
PROVIDERS: ADMIT Internal Medicine; ATTEND Student in an Organized Health Care Education/Training Program

== ENCOUNTER 2022-01-03 18:16 | Inpatient (IN) ==
[2022-01-03 19:38] LABS: Basophils % 0.4 %; Eosinophils # 0.2 K/mcL (0.0-0.6); Eosinophils % 2.2 %; Hemoglobin 11.5 g/dL (11.5-15.4); Immature Granulocytes % 0.4 % (0-4); Lymphocytes # 2.5 K/mcL (0.6-4.6); Lymphocytes % 23.6 %; Mean Corpuscular HGB Conc 30.3 g/dL (31.6-35.5); Mean Corpuscular Hemoglobin 23.9 pg (28.0-33.3); Mean Corpuscular Volume 78.8 fL (83.0-100.0); Mean Platelet Volume 10.6 fL (9.4-12.4); Monocytes # 0.7 K/mcL (0.0-1.3); Monocytes % 6.4 %; Platelet Count 251 K/mcL (140-400); Red Blood Count 4.82 M/mcL (3.82-4.97); White Blood Count 10.4 K/mcL (4.3-11.1)
[2022-01-03 19:56] LABS: Alanine Aminotransferase 34 Units/L (7-52); Albumin/Globulin Ratio 1.2 (1.1-2.2); Alkaline Phosphatase 116 Units/L (34-104); Aspartate Amino Transferase 21 Units/L (13-39); BUN/Creatinine Ratio 22 (6-26); Bilirubin,Total 0.2 mg/dL (0.3-1.0); Blood Urea Nitrogen 20 mg/dL (6-20); Calcium 9.1 mg/dL (8.6-10.3); Carbon Dioxide 29 mEq/L (23-29); Chloride 102 mEq/L (98-107); Globulin 3.4 g/dL (2.4-3.5); Glucose 70 mg/dL (70-105); Osmolality,Calculated 287 (280-300); Potassium 4.3 mEq/L (3.5-5.1); Sodium 138 mEq/L (136-145); Total Protein 7.4 g/dL (6.4-8.9); eGFR For African Americans > 60 (> 60); eGFR For Non-African Americans > 60 (> 60)
[2022-01-03] MEDS ORDERED: Piperacillin/Tazobactam 3.375 GM in 0.9 % Sodium Chloride Mini Bag 100 ML IVPB ONE (20:08)
[2022-01-03] MEDS ORDERED: Vancomycin 2,000 MG/520 ML IV.SOLN IVPB ONE (20:08)
[2022-01-03] MEDS ORDERED: *HR* LORazepam 1 MG TABLET PO ONE ×2 (20:08→23:36)
[2022-01-03 20:29] LABS: C-Reactive Protein 21 mg/L (Less than 10)
[2022-01-03] MEDS ORDERED: Iopamidol - 370 500 ML MLS IVP ONE (20:53)
[2022-01-03] MEDS ORDERED: Acetaminophen 325 MG TABLET PO PRN (23:10)
[2022-01-03] MEDS ORDERED: Naloxone 0.4 MG/ML INJ IVP PRN (23:10)
[2022-01-03] MEDS ORDERED: Melatonin 3 MG TABLET PO PRN (23:10)
[2022-01-03] MEDS ORDERED: Ondansetron 4 MG/2 ML VIAL IVP PRN (23:10)
[2022-01-03] MEDS ORDERED: Pregabalin 50 MG CAPSULE PO ONE (23:36)
[2022-01-04] MEDS: Insulin LISPRO 300 UNITS/3 ML VIAL SUBQ SCH ×5 (00:29→21:13)
[2022-01-04] MEDS ORDERED: Dextrose Gel 15 GM/37.5 ML TUBE PO PRN ×2 (00:41)
[2022-01-04] MEDS: *HR* Dextrose 50 % in Water (Syg) 50 ML SYRINGE IVP PRN ×2 (01:03→02:15)
[2022-01-04] MEDS: D5% in Water 1,000 ML IVC PRN ×2 (02:16→08:23)
[2022-01-04] MEDS ORDERED: Gadolinium Contrast Agent (WT Based) IV PRN (02:37)
[2022-01-04 04:58] LABS: Hematocrit 38.1 % (35.3-44.9); Hemoglobin 11.5 g/dL (11.5-15.4); Mean Corpuscular HGB Conc 30.2 g/dL (31.6-35.5); Mean Corpuscular Hemoglobin 23.7 pg (28.0-33.3); Mean Corpuscular Volume 78.6 fL (83.0-100.0); Platelet Count 241 K/mcL (140-400); Red Blood Count 4.85 M/mcL (3.82-4.97); Red Cell Distribution Width 16.2 % (11.5-14.5); White Blood Count 10.3 K/mcL (4.3-11.1)
[2022-01-04] MEDS: risperiDONE 1 MG TABLET PO SCH ×2 (04:58→08:22)
[2022-01-04 05:11] LABS: BUN/Creatinine Ratio 19 (6-26); Blood Urea Nitrogen 17 mg/dL (6-20); Calcium 9.2 mg/dL (8.6-10.3); Carbon Dioxide 26 mEq/L (23-29); Chloride 105 mEq/L (98-107); Glucose 47 mg/dL (70-105); Magnesium 1.9 mg/dL (1.6-2.6); Osmolality,Calculated 289 (280-300); Phosphorous 3.6 mg/dL (2.7-4.5); Potassium 3.8 mEq/L (3.5-5.1); Sodium 140 mEq/L (136-145); eGFR For African Americans > 60 (> 60); eGFR For Non-African Americans > 60 (> 60)
[2022-01-04] MEDS: *HR* LORazepam 2 MG/ML VIAL IVP PRN ×4 (05:44→23:21)
[2022-01-04 05:48] LABS: Estimated Average Glucose 111 mg/dl; Hemoglobin A1C 5.5 %
[2022-01-04] MEDS ORDERED: *HR* Heparin 5,000 UNIT/ML VIAL SQ SCH (06:00)
[2022-01-04] MEDS: Pregabalin 50 MG CAPSULE PO SCH ×3 (08:22→21:15)
[2022-01-04] MEDS: Piperacillin/Tazobactam 3.375 GM in 0.9 % Sodium Chloride Mini Bag 100 ML IVPB SCH ×3 (08:23→23:13)
[2022-01-04] MEDS: Vancomycin 2,000 MG/520 ML IV.SOLN IVPB SCH ×2 (10:26→21:15)
[2022-01-04] MEDS: tiZANidine 4 MG TABLET PO PRN ×2 (13:38→23:13)
[2022-01-04] MEDS: ARGININE 500 MG PO SCH (17:18)
[2022-01-04] MEDS ORDERED: risperiDONE 0.25 MG TABLET PO SCH (21:00)
[2022-01-05 05:55] LABS: Basophils # 0.1 K/mcL (0.0-0.2); Basophils % 0.6 %; Eosinophils # 0.2 K/mcL (0.0-0.6); Eosinophils % 2.4 %; Hematocrit 38.9 % (35.3-44.9); Hemoglobin 11.6 g/dL (11.5-15.4); Immature Granulocytes % 0.2 % (0-4); Lymphocytes # 1.8 K/mcL (0.6-4.6); Lymphocytes % 20.1 %; Mean Corpuscular HGB Conc 29.8 g/dL (31.6-35.5); Mean Corpuscular Hemoglobin 23.8 pg (28.0-33.3); Mean Corpuscular Volume 79.7 fL (83.0-100.0); Mean Platelet Volume 11.2 fL (9.4-12.4); Monocytes # 0.7 K/mcL (0.0-1.3); Neutrophils # 6.2 K/mcL (1.6-8.9); Platelet Count 231 K/mcL (140-400); Red Blood Count 4.88 M/mcL (3.82-4.97); Red Cell Distribution Width 16.5 % (11.5-14.5); Segmented Neutrophils % 68.7 %
[2022-01-05 06:20] LABS: BUN/Creatinine Ratio 16 (6-26); Blood Urea Nitrogen 16 mg/dL (6-20); Calcium 9.3 mg/dL (8.6-10.3); Carbon Dioxide 29 mEq/L (23-29); Chloride 101 mEq/L (98-107); Glucose 223 mg/dL (70-105); Osmolality,Calculated 294 (280-300); Phosphorous 4.7 mg/dL (2.7-4.5); Potassium 4.5 mEq/L (3.5-5.1); Sodium 138 mEq/L (136-145); eGFR For African Americans > 60 (> 60); eGFR For Non-African Americans > 60 (> 60)
[2022-01-05] MEDS: Pregabalin 50 MG CAPSULE PO SCH ×3 (08:35→20:20)
[2022-01-05] MEDS: Cholecalciferol (D-3) 1,000 UNIT (25MCG) TABLET PO SCH (08:35)
[2022-01-05] MEDS: ARIPiprazole 10 MG TABLET PO SCH (08:35)
[2022-01-05] MEDS: Loratadine 10 MG TABLET PO SCH (08:35)
[2022-01-05] MEDS: Magnesium Oxide 400 MG TABLET PO SCH (08:36)
[2022-01-05] MEDS: Furosemide 20 MG TABLET PO SCH (08:36)
[2022-01-05] MEDS: Aspirin Enteric Coated 81 MG Tablet PO SCH (08:36)
[2022-01-05] MEDS: Piperacillin/Tazobactam 3.375 GM in 0.9 % Sodium Chloride Mini Bag 100 ML IVPB SCH ×2 (08:36→16:19)
[2022-01-05] MEDS: lisinopriL 5 MG TABLET PO SCH (08:36)
[2022-01-05] MEDS: Metoprolol XL (24 HR) Succ 50 MG TAB.ER.24H PO SCH (08:36)
[2022-01-05] MEDS: risperiDONE 1 MG TABLET PO SCH ×2 (09:40→20:36)
[2022-01-05] MEDS: Insulin LISPRO 300 UNITS/3 ML VIAL SUBQ SCH ×4 (09:40→20:14)
[2022-01-05] MEDS: Insulin DETEMIR 100 UNIT/ML X5UNITS SUBQ SCH ×2 (09:41→20:20)
[2022-01-05] MEDS: Vancomycin 2,000 MG/520 ML IV.SOLN IVPB SCH ×2 (10:31→20:36)
[2022-01-05] MEDS: *HR* Heparin 5,000 UNIT/ML VIAL SQ SCH (17:27)
[2022-01-05] MEDS: ARGININE 500 MG PO SCH (17:39)
[2022-01-05] MEDS: tiZANidine 4 MG TABLET PO PRN (18:09)
[2022-01-05] MEDS: *HR* LORazepam 2 MG/ML VIAL IVP PRN (18:09)
[2022-01-06] MEDS: Piperacillin/Tazobactam 3.375 GM in 0.9 % Sodium Chloride Mini Bag 100 ML IVPB SCH ×4 (00:08→23:44)
[2022-01-06] MEDS: risperiDONE 1 MG TABLET PO SCH ×3 (00:14→20:45)
[2022-01-06 04:12] LABS: Basophils # 0.1 K/mcL (0.0-0.2); Basophils % 0.7 %; Eosinophils # 0.4 K/mcL (0.0-0.6); Eosinophils % 4.1 %; Hematocrit 38.8 % (35.3-44.9); Hemoglobin 11.8 g/dL (11.5-15.4); Immature Granulocytes % 0.6 % (0-4); Lymphocytes # 2.1 K/mcL (0.6-4.6); Lymphocytes % 23.3 %; Mean Corpuscular HGB Conc 30.4 g/dL (31.6-35.5); Mean Corpuscular Hemoglobin 24.2 pg (28.0-33.3); Mean Corpuscular Volume 79.5 fL (83.0-100.0); Mean Platelet Volume 10.7 fL (9.4-12.4); Monocytes # 0.7 K/mcL (0.0-1.3); Monocytes % 7.5 %; Neutrophils # 5.8 K/mcL (1.6-8.9); Platelet Count 224 K/mcL (140-400); Red Blood Count 4.88 M/mcL (3.82-4.97); Red Cell Distribution Width 16.2 % (11.5-14.5); Segmented Neutrophils % 63.8 %
[2022-01-06 04:33] LABS: BUN/Creatinine Ratio 16 (6-26); Blood Urea Nitrogen 17 mg/dL (6-20); Calcium 9.5 mg/dL (8.6-10.3); Carbon Dioxide 29 mEq/L (23-29); Chloride 100 mEq/L (98-107); Glucose 180 mg/dL (70-105); Magnesium 1.8 mg/dL (1.6-2.6); Osmolality,Calculated 288 (280-300); Phosphorous 5.1 mg/dL (2.7-4.5); Potassium 4.5 mEq/L (3.5-5.1); Sodium 136 mEq/L (136-145); eGFR For African Americans > 60 (> 60); eGFR For Non-African Americans 56 (> 60)
[2022-01-06] MEDS: *HR* Heparin 5,000 UNIT/ML VIAL SQ SCH ×2 (06:03→18:31)
[2022-01-06] MEDS: lisinopriL 5 MG TABLET PO SCH (10:35)
[2022-01-06] MEDS: Magnesium Oxide 400 MG TABLET PO SCH (10:35)
[2022-01-06] MEDS: Cholecalciferol (D-3) 1,000 UNIT (25MCG) TABLET PO SCH (10:35)
[2022-01-06] MEDS: Pregabalin 50 MG CAPSULE PO SCH ×3 (10:35→20:45)
[2022-01-06] MEDS: Furosemide 20 MG TABLET PO SCH (10:36)
[2022-01-06] MEDS: Loratadine 10 MG TABLET PO SCH (10:36)
[2022-01-06] MEDS: Aspirin Enteric Coated 81 MG Tablet PO SCH (10:36)
[2022-01-06] MEDS: ARIPiprazole 10 MG TABLET PO SCH (10:36)
[2022-01-06] MEDS: Metoprolol XL (24 HR) Succ 50 MG TAB.ER.24H PO SCH (10:36)
[2022-01-06] MEDS: Vancomycin 2,000 MG/520 ML IV.SOLN IVPB SCH ×2 (11:07→20:44)
[2022-01-06] MEDS: Insulin DETEMIR 100 UNIT/ML X5UNITS SUBQ SCH ×2 (11:08→20:48)
[2022-01-06] MEDS: Insulin LISPRO 300 UNITS/3 ML VIAL SUBQ SCH ×4 (11:10→20:48)
[2022-01-06] MEDS: *HR* LORazepam 2 MG/ML VIAL IVP PRN ×2 (11:15→20:45)
[2022-01-06] MEDS: tiZANidine 4 MG TABLET PO PRN (15:49)
[2022-01-06] MEDS: ARGININE 500 MG PO SCH (17:47)
[2022-01-07] MEDS: tiZANidine 4 MG TABLET PO PRN (00:07)
[2022-01-07] MEDS: *HR* Heparin 5,000 UNIT/ML VIAL SQ SCH (05:18)
[2022-01-07 06:46] VITALS: BP 107/59; PULSE 16; TEMP 97.6; O2SAT 96
[2022-01-07] MEDS ORDERED: Doxycycline 100 MG CAPSULE PO SCH (09:00)
[2022-01-07] MEDS: Magnesium Oxide 400 MG TABLET PO SCH (11:31)
[2022-01-07] MEDS: Metoprolol XL (24 HR) Succ 50 MG TAB.ER.24H PO SCH (11:31)
[2022-01-07] MEDS: risperiDONE 1 MG TABLET PO SCH (11:31)
[2022-01-07] MEDS: ARIPiprazole 10 MG TABLET PO SCH (11:31)
[2022-01-07] MEDS: Aspirin Enteric Coated 81 MG Tablet PO SCH (11:31)
[2022-01-07] MEDS: Furosemide 20 MG TABLET PO SCH (11:32)
[2022-01-07] MEDS: Cholecalciferol (D-3) 1,000 UNIT (25MCG) TABLET PO SCH (11:32)
[2022-01-07] MEDS: lisinopriL 5 MG TABLET PO SCH (11:32)
[2022-01-07] MEDS: Pregabalin 50 MG CAPSULE PO SCH (11:32)
[2022-01-07] MEDS: Loratadine 10 MG TABLET PO SCH (11:33)
== END 2022-01-07 12:00 | disposition home or self-care (01) | DRG 638 ==
LOC: EMEROOARM 18:16 → 4WAOSI 18:16 → SUATTDRO 23:34 → 4WAOSI 23:59
PROVIDERS: ADMIT Family Medicine; ATTEND Internal Medicine